=== PATIENT | male | born 1950 | race Caucasian/White ===

== ENCOUNTER 2020-07-09 17:48 | Observation (INO) ==
--- NOTE | 2020-07-09 19:37 | Emergency Department Note ---
History of Present Illness General Chief complaint: Foot Injury/Pain Stated complaint: L foot pain Time Seen by Provider: 07/09/20 19:25 Source: patient History of Present Illness Provider complaint: Leg swelling Onset (ago): week(s) Location: lower extremity, left and right Severity: moderate Pain Consistency: + constant Quality: + other (Swelling left greater than right) Relieved By: + none Associated symptoms: + other (Bruising to the left foot); no chest pain, no cough, no fever/chills, no nausea/vomiting and no shortness of breath This is a 70-year-old male who presents with bilateral lower extremity swelling, greater on the left than the right. He states he noticed that about a week ago. He also noticed some bruising to the left heel. He denies any injury. 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 He denies any discomfort to his legs. He is active daily and states that he has had no recent immobilization. He denies chest pain, shortness of breath, fever, vomiting, cough or cold symptoms, abdominal pain, diarrhea or urinary symptoms. He states that he has not been to see a doctor for years and so has no medications or known medical problems. Home Medications Medication Instructions Recorded Confirmed Type multivitamin [Multiple Vitamins] 1 tab PO DAILY 07/09/20 07/09/20 History Allergies Allergy/AdvReac Type Severity Reaction Status Date / Time Sulfa (Sulfonamide Allergy Mild Rash Verified 07/09/20 22:27 Antibiotics) morphine AdvReac Intermediate crazy Verified 07/09/20 22:26 Past Med/Surg History Medical History No pertinent past medical history Social History Smoking Status: Never smoker Feels Safe at Home: Yes Review of Systems See HPI for pertinent positives & negatives. and A total of 10 systems reviewed and were otherwise negative Physical Exam Vital Signs Vital Signs - 24 hr 07/09/20 18:23 07/09/20 19:41 07/09/20 21:04 Temperature 37.0 C Temperature Source Oral Pulse Rate 98 H Pulse Rate [Finger] 101 H 114 H Pulse Rate from SpO2 Sensor Respiratory Rate 18 14 16 Respiratory Effort / Characteristics Non-Labored Spontaneous Non-Labored Spontaneous Respiratory Depth Normal Normal Respiratory Pattern Regular Regular Blood Pressure 191/93 H Blood Pressure [Right Arm] 180/100 H 183/114 H Blood Pressure Mean 125 Blood Pressure Mean [Right Arm] 126 137 Blood Pressure Position Sitting Pulse Oximetry 98 98 95 Oxygen Delivery Method Room Air Room Air Room Air Sepsis Recent Fever Within 48 Hours No Sepsis New/Unexplained Change in Mental Status No Sepsis Action Taken by Nursing No Action Required 07/09/20 21:30 07/09/20 22:00 07/09/20 22:01 Temperature Temperature Source Pulse Rate 92 H 95 H 94 H Pulse Rate [Finger] Pulse Rate from SpO2 Sensor 92 H 95 H 94 H Respiratory Rate 18 19 21 Respiratory Effort / Characteristics Respiratory Depth Respiratory Pattern Blood Pressure 169/88 H 177/104 H Blood Pressure [Right Arm] Blood Pressure Mean 132 138 Blood Pressure Mean [Right Arm] Blood Pressure Position Pulse Oximetry 95 97 97 Oxygen Delivery Method Room Air Room Air Sepsis Recent Fever Within 48 Hours Sepsis New/Unexplained Change in Mental Status Sepsis Action Taken by Nursing 07/09/20 23:06 07/09/20 23:28 07/09/20 23:30 Temperature Temperature Source Pulse Rate 80 Pulse Rate [Finger] 90 Pulse Rate from SpO2 Sensor 82 Respiratory Rate 17 16 Respiratory Effort / Characteristics Respiratory Depth Respiratory Pattern Blood Pressure 143/89 H Blood Pressure [Right Arm] 167/98 H Blood Pressure Mean 100 Blood Pressure Mean [Right Arm] 121 Blood Pressure Position Pulse Oximetry 98 97 Oxygen Delivery Method Room Air Room Air Room Air Sepsis Recent Fever Within 48 Hours Sepsis New/Unexplained Change in Mental Status Sepsis Action Taken by Nursing Constitutional: Vital signs reviewed. Eyes: Pupils are equal round reactive to light. Conjunctiva are noninjected. ENT: Pharynx is clear without erythema or exudate. Mucous membranes are moist. Neck supple without meningeal signs. Respiratory: Clear to auscultation bilaterally. Breath sounds are equal bilaterally. No rales. Cardiovascular: Regular rate and rhythm. No rubs or gallops. GI: Soft, nondistended and nontender. Bowel sounds are present. Musculoskeletal: Bilateral lower extremity edema greater on the left side with pitting on the left side. There is what appears to be ecchymosis to the posterior left foot over the heel. No tenderness to the lower extremities or joints. Integumentary: No cyanosis. or jaundice. Neurological: The patient is awake and alert. No focal deficits. Psychiatric: Normal affect. Not anxious appearing. Course Administered Medications Discontinued Medications Furosemide (Furosemide 40 Mg/4 Ml Vial) 20 mg IV NOW STA Stop: 07/09/20 22:23 Last Admin: 07/09/20 23:10 Dose: 20 mg Documented by: [id number] Labetalol HCl (Labetalol Hcl Iv 5 Mg/Ml 20ml) 10 mg IV NOW STA Stop: 07/09/20 21:15 Last Admin: 07/09/20 21:32 Dose: 10 mg Documented by: [id number] Cosigned by: [id number] Medical Decision Making Differential Diagnosis Peripheral edema, anasarca, renal disease, DVT, CHF Medical Records Attestation: I reviewed the patient's medical records. I did perform a limited focused review of portions of the patient's old chart on the electronic medical record. The patient has had no recent pertinent visits to this hospital. Home Medications Current Medication List: was personally reviewed by me Laboratory Data Attestation: I reviewed the patient's lab results. Result diagrams: 07/09/20 19:44 07/09/20 19:44 Lab Results 07/09/20 07/09/20 07/09/20 Range/Units 19:44 19:44 19:44 WBC 6.95 (4.8-10.8) K/uL RBC 3.52 L (4.7-6.1) M/uL Hgb 13.5 L (14.0-18.0) g/dL Hct 36.6 L (42-52) % MCV 104.0 H (80-100) fL MCH 38.4 H (25-34) pg MCHC 36.9 H (32-36) g/dL RDW Std Deviation 52.6 H (36.4-46.3) fL RDW Coeff of Juanjose 13.8 (11.5-14.5) % Plt Count 87 L (130-400) K/uL MPV 10.8 H (7.4-10.4) fL Immature Gran % (Auto) 0.0 % Neut % (Auto) 54.6 % Lymph % (Auto) 31.8 % [place] % (Auto) 10.6 % Eos % (Auto) 2.4 % Baso % (Auto) 0.6 % Neut # (Auto) 3.79 (1.4-6.5) K/uL Lymph # (Auto) 2.21 (1.2-3.4) K/uL [place] # (Auto) 0.74 H (0.11-0.59) K/uL Eos # (Auto) 0.17 (0-0.5) K/uL Baso # (Auto) 0.04 (0-0.2) K/uL Immature Gran # (Auto) 0.00 (0.00-0.02) K/uL Platelet Estimate Decreased L (Normal) PT 14.6 H (9.0-12.0) Seconds INR 1.4 H (0.9-1.1) APTT 32.8 H (21.0-31.0) Seconds PTT Ratio 1.2 Sodium 136 (136-145) mmol/L Potassium 3.8 (3.5-5.1) mmol/L Chloride 104 (98-107) mmol/L Carbon Dioxide 28 (21-32) mmol/L Anion Gap 4.0 (3-11) BUN 9 (7-18) mg/dl Creatinine 0.91 (0.6-1.4) mg/dl Est Cr Clr Drug Dosing Not Reportable Est GFR ( Amer) 98.6 Est GFR (Non-Af Amer) 85.1 BUN/Creatinine Ratio 10.1 (10-20) Glucose 129 H (70-99) mg/dl Calcium 8.9 (8.5-10.1) mg/dl Magnesium 1.9 (1.8-2.4) mg/dl Total Bilirubin 2.9 H (0.2-1) mg/dl AST 98 H (15-37) U/L ALT 79 H (12-78) U/L Alkaline Phosphatase 197 H (45-117) U/L Troponin I < 0.015 (0-0.045) ng/ml Total Protein 8.6 H (6.4-8.2) gm/dl Albumin 3.3 L (3.4-5.0) gm/dl Globulin 5.3 H (2.5-4.0) gm/dl Albumin/Globulin Ratio 0.6 L (0.9-2) TSH 1.280 (0.300-4.500) uIu/ml Anaplasma Smear See Comment Lyme Disease IgG Ab (Negative) Lyme Disease IgM Ab (Negative) SARS-CoV-2 Ag (Rapid) (Negative) 07/09/20 07/09/20 Range/Units 21:49 21:51 WBC (4.8-10.8) K/uL RBC (4.7-6.1) M/uL Hgb (14.0-18.0) g/dL Hct (42-52) % MCV (80-100) fL MCH (25-34) pg MCHC (32-36) g/dL RDW Std Deviation (36.4-46.3) fL RDW Coeff of Juanjose (11.5-14.5) % Plt Count (130-400) K/uL MPV (7.4-10.4) fL Immature Gran % (Auto) % Neut % (Auto) % Lymph % (Auto) % [place] % (Auto) % Eos % (Auto) % Baso % (Auto) % Neut # (Auto) (1.4-6.5) K/uL Lymph # (Auto) (1.2-3.4) K/uL [place] # (Auto) (0.11-0.59) K/uL Eos # (Auto) (0-0.5) K/uL Baso # (Auto) (0-0.2) K/uL Immature Gran # (Auto) (0.00-0.02) K/uL Platelet Estimate (Normal) PT (9.0-12.0) Seconds INR (0.9-1.1) APTT (21.0-31.0) Seconds PTT Ratio Sodium (136-145) mmol/L Potassium (3.5-5.1) mmol/L Chloride (98-107) mmol/L Carbon Dioxide (21-32) mmol/L Anion Gap (3-11) BUN (7-18) mg/dl Creatinine (0.6-1.4) mg/dl Est Cr Clr Drug Dosing Est GFR ( Amer) Est GFR (Non-Af Amer) BUN/Creatinine Ratio (10-20) Glucose (70-99) mg/dl Calcium (8.5-10.1) mg/dl Magnesium (1.8-2.4) mg/dl Total Bilirubin (0.2-1) mg/dl AST (15-37) U/L ALT (12-78) U/L Alkaline Phosphatase (45-117) U/L Troponin I (0-0.045) ng/ml Total Protein (6.4-8.2) gm/dl Albumin (3.4-5.0) gm/dl Globulin (2.5-4.0) gm/dl Albumin/Globulin Ratio (0.9-2) TSH (0.300-4.500) uIu/ml Anaplasma Smear Lyme Disease IgG Ab Positive A (Negative) Lyme Disease IgM Ab Negative (Negative) SARS-CoV-2 Ag (Rapid) Negative (Negative) Imaging Data Radiologist's Impression: XR chest 2V PA/lateral CLINICAL HISTORY: Lower extremity edema. Evaluate for congestive failure COMPARISON STUDY: No previous studies for comparison. FINDINGS: The heart is normal in size. There is no failure. There is no focal pulmonary consolidation. There are no pleural effusions. Degenerative changes are present within the spine.[ IMPRESSION: No active disease in the chest. ACT 112: Negative or not required by law. Electronically signed by: Karel Kay M.D. 07/09/2020 8:52 PM Dictated: 07/09/202051 Transcribed: 07/09/202051 US venous doppler LE BI CLINICAL HISTORY: Bilateral leg swelling COMPARISON STUDY: No previous studies for comparison. FINDINGS: Real-time and color flow Doppler imaging were performed. Flow was seen within the femoral, popliteal and calf veins with no intraluminal thrombus demonstrated. The saphenous vein is patent. IMPRESSION: No evidence of lower extremity DVT. ACT 112: Negative or not required by law. Electronically signed by: Karel Kay M.D. 07/09/2020 8:34 PM Dictated: 07/09/202033 Transcribed: 07/09/202033 ECG Data Attestation: I personally reviewed and interpreted this ECG as follows: Indication: + other (Hypertension) Rate (beats per minute): 101 Rhythm: + sinus tachycardia ECG ST segments: + T-wave inversions ECG Findings: + LVH; no PVCs MDM Narrative I did evaluate the patient as noted above. He is presenting or peripheral edema with pitting edema in the left leg. He has no pain to the legs. He denies any prior medical problems but has significant hypertension here. IV access was established. I did place an order for continuous cardiac monitoring. The monitor showed Normal sinus rhythm at a rate of 98 bpm. I did order and personally review the patient's 12-lead EKG as described above.He has tachycardia with some T wave inversions and LVH. No old EKGs available for c omparison. I did order and personally reviewed the images of the patient's chest x-ray as described above. There is no evidence of acute process or cardiomegaly.I did order and review the patient's blood work as noted in the electronic medical record.The patient has thrombocytopenia and anemia. El ectrolytes are unremarkable. LFTs are abnormal. I did orderA Doppler ultrasound of the lower extremities. I did review the images myself as well as the radiology report as described above.There is no evidence of DVT in either leg.I did discuss the test results with the patient.I did discuss the test results with the patient.I did recommend hospitalization for further care and evaluation. He will require an echocardiogram and further testing. I did ask him about alcohol use and he states he drinks very rarely. He also denies any tick bites. He does have a dog. He has no symptoms consistent with Lyme disease. This was positive for IgG but negative for IgM. Anaplasmosis Smear was negati ve. I did send out a reference lab anaplasmosis test which is pending. I did treat the patient with labetalol for his uncontrolled hypertension. His heart rate and blood pressure improved. His BP is 143/89 and heart rate is 80. He was agreeable to hospitalization. I did discuss case with the hospitalist and tactical air control party manager. Impression & Plan Edema, peripheral, Thrombocytopenia, Anemia, Abnormal LFTs, Abnormal ECG Discharge Plan Visit Data Chief Complaint: Foot Injury/Pain Stated Complaint: L foot pain ED Provider: [place] [facility] Discharge Problem: Edema, peripheral, Thrombocytopenia, Anemia, Abnormal LFTs, Abnormal ECG Patient Disposition: Being Evaluated by Hospitalist Discharge Instructions Interventions: ED Discharge Assessment Last Done: 07/09/20 23:28 Forms Stand Alone Forms: My Individual Digital Prescriptions Prescriptions: No Action multivitamin [Multiple Vitamins] Tablet 1 tab PO DAILY RF: 0 Referrals Referrals: PCP,NO [Primary Care Provider] -
[2020-07-09 20:18] LABS: INR 1.4 (0.9-1.1); Partial Thromboplastin Ratio 1.2; Partial Thromboplastin Time 32.8 Seconds (21.0-31.0); Prothrombin Time 14.6 Seconds (9.0-12.0)
[2020-07-09 20:19] LABS: Alanine Aminotransferase 79 U/L (12-78); Albumin Level 3.3 gm/dl (3.4-5.0); Aspartate Aminotransferase 98 U/L (15-37); BUN Creatinine Ratio 10.1 (10-20); Blood Urea Nitrogen 9 mg/dl (7-18); Calcium 8.9 mg/dl (8.5-10.1); Carbon Dioxide 28 mmol/L (21-32); Chloride 104 mmol/L (98-107); Est GFR (African American) 98.6; Est GFR (Non-African American) 85.1; Glucose 129 mg/dl (70-99); Potassium 3.8 mmol/L (3.5-5.1); Sodium 136 mmol/L (136-145)
[2020-07-09 20:23] LABS: Albumin Globulin Ratio 0.6 (0.9-2); Alkaline Phosphatase 197 U/L (45-117); Basophils # (auto) 0.04 K/uL (0-0.2); Basophils % (auto) 0.6 %; Bilirubin,Total 2.9 mg/dl (0.2-1); Eosinophils # (auto) 0.17 K/uL (0-0.5); Eosinophils % (auto) 2.4 %; Globulin 5.3 gm/dl (2.5-4.0); Hematocrit (blood only) 36.6 % (42-52); Hemoglobin 13.5 g/dL (14.0-18.0); Lymphocytes # (auto) 2.21 K/uL (1.2-3.4); Lymphocytes % (auto) 31.8 %; Mean Corpuscular Hemoglobin 38.4 pg (25-34); Mean Corpuscular Hgb Conc 36.9 g/dL (32-36); Mean Platelet Volume 10.8 fL (7.4-10.4); Monocytes # (auto) 0.74 K/uL (0.11-0.59); Monocytes % (auto) 10.6 %; Neutrophils # (auto) 3.79 K/uL (1.4-6.5); Neutrophils % (auto) 54.6 %; Platelet Count 87 K/uL (130-400); Platelet Estimate Decreased (Normal); RDW Coefficient of Variation 13.8 % (11.5-14.5); RDW Standard Deviation 52.6 fL (36.4-46.3); Red Blood Count 3.52 M/uL (4.7-6.1); Total Protein 8.6 gm/dl (6.4-8.2); Troponin I < 0.015 ng/ml (0-0.045); White Blood Count 6.95 K/uL (4.8-10.8)
--- NOTE | 2020-07-09 20:35 | Ultrasound Report ---
US venous doppler LE BI CLINICAL HISTORY: Bilateral leg swelling COMPARISON STUDY: No previous studies for comparison. FINDINGS: Real-time and color flow Doppler imaging were performed. Flow was seen within the femoral, popliteal and calf veins with no intraluminal thrombus demonstrated. The saphenous vein is patent. IMPRESSION: No evidence of lower extremity DVT. ACT 112: Negative or not required by law. Electronically signed by: Karel Kay M.D. 07/09/2020 8:34 PM
--- NOTE | 2020-07-09 20:54 | XRay Report ---
XR chest 2V PA/lateral CLINICAL HISTORY: Lower extremity edema. Evaluate for congestive failure COMPARISON STUDY: No previous studies for comparison. FINDINGS: The heart is normal in size. There is no failure. There is no focal pulmonary consolidation . There are no pleural effusions. Degenerative changes are present within the spine.[ IMPRESSION: No active disease in the chest. ACT 112: Negative or not required by law. Electronically signed by: Karel Kay M.D. 07/09/2020 8:52 PM
[2020-07-09] MEDS ORDERED: LABETALOL HCL IV 5 MG/ML 20ML IV STA (21:14)
--- NOTE | 2020-07-09 22:20 | History & Physical Report ---
Date of Service July 09, 2020 Assessment & Plan (1) Edema, peripheral: Secondary to new diagnosis of cirrhosis Etiology to be determined Thrombocytopenia, coagulopathy secondary to liver disease Hypertensive urgency Likely chronic BP elevation given LVH on EKG Hyperglycemia rule out DM Anemia, unknown duration OBS Medical telemetry given hypertensive urgency Lasix 1 dose now given fluid retention from cirrhosis Initiate lisinopril for maintenance BP control GI consult Re: New onset cirrhosis Check hemoglobin A1c Anemia work-up, transfuse PRBC if hemoglobin less than 7 and or for symptomatic anemia DVT prophylaxis. SCDs RE thrombocytopenia Full code Text document was generated using [employer] voice recognition software. It may contain grammatical or spelling errors. Kindly contact undersigned for clarification of any documentation item in question. History of Present Illness Chief Complaint: Leg swelling, bruising Primary Care Provider: NO PCP No significant medical history. Patient has not had a primary care doctor in the last 20 years. 1 week history of bruising on the left foot followed by leg swelling initially left followed by the right leg. No recollection of recent trauma although he is very active with household/yard work. No fever, no chills. No chest pain, no S OB. No headache. No unusual abdominal pain or distention as per patient. No inordinate alcohol or Tylenol intake. At the ER, SBP 190s. Patient given Labetalol. Medical History as above History tick bite infection status post outpatient Doxycycline Rx 2015 Surgical History : Appendectomy Family History : No liver disease Personal/Social history : Non-smoker, occasional EtOH intake, psychiatric nurse Allergies Allergy/AdvReac Type Severity Reaction Status Date / Time Sulfa (Sulfonamide Allergy Mild Rash Verified 07/09/20 22:27 Antibiotics) morphine AdvReac Intermediate crazy Verified 07/09/20 22:26 Home Medications Medication Instructions Recorded Confirmed Type multivitamin [Multiple Vitamins] 1 tab PO DAILY 07/09/20 07/09/20 History Past Med/Surg History Medical History No pertinent past medical history Social History Smoking Status: Never smoker Second Hand Exposure: Yes ( is a smoker); Hx Alcohol Use: Yes Alcohol type: beer, wine and hard liquor Hx Substance Use: No Preferred Language: Guatemalan Communication Ability: Effective Medical Microbiologist Required: No Beliefs That Will Affect Care: None Current Living Situation: Spouse Other Information That Helps Us Care for You: No Feels Safe at Home: Yes Safety Concerns: Feels Safe At This Time Assistive Devices: None Review of Systems Review of Systems: As per HPI, all 10 systems reviewed, all other ROS negative Physical Exam Physical Exam: GENERAL: Comfortable, pleasant, no respiratory distress SKIN: Pallor, warm HEENT: Alopecia, bespectacled, pale palpebral conjunctivae, no ptosis, dry buc isidra mucosa NECK : Supple, no tenderness CHEST : CTA, no tenderness HEART : RRR, no obvious murmurs ABDOMEN: Some distention, nontender EXTREMITIES : LE swelling L>R , no LE tenderness, ecchymosis left foot, no other conspicuous deformities noted NEUROLOGIC : Coherent, no facial asymmetry, no other gross focality Results & Data Results & Data ([facility]) Vital Signs (Past 12 Hours) Vital Signs Temp Pulse Pulse Resp BP BP Pulse Ox 07/09/20 22:00 95 H 19 177/104 H 97 07/09/20 21:30 92 H 18 169/88 H 95 07/09/20 21:04 114 H 16 183/114 H 95 07/09/20 19:41 101 H 14 180/100 H 98 07/09/20 18:23 37.0 C 98 H 18 191/93 H 98 Laboratory Results Laboratory Results WBC 6.95 K/uL (4.8-10.8) 07/09/20 19:44 RBC 3.52 M/uL (4.7-6.1) L 07/09/20 19:44 Hgb 13.5 g/dL (14.0-18.0) L 07/09/20 19:44 Hct 36.6 % (42-52) L 07/09/20 19:44 MCV 104.0 fL (80-100) H 07/09/20 19:44 MCH 38.4 pg (25-34) H 07/09/20 19:44 MCHC 36.9 g/dL (32-36) H 07/09/20 19:44 RDW Std Deviation 52.6 fL (36.4-46.3) H 07/09/20 19:44 RDW Coeff of Juanjose 13.8 % (11.5-14.5) 07/09/20 19:44 Plt Count 87 K/uL (130-400) L 07/09/20 19:44 MPV 10.8 fL (7.4-10.4) H 07/09/20 19:44 Immature Gran % (Auto) 0.0 % 07/09/20 19:44 Neut % (Auto) 54.6 % 07/09/20 19:44 Lymph % (Auto) 31.8 % 07/09/20 19:44 [place] % (Auto) 10.6 % 07/09/20 19:44 Eos % (Auto) 2.4 % 07/09/20 19:44 Baso % (Auto) 0.6 % 07/09/20 19:44 Neut # (Auto) 3.79 K/uL (1.4-6.5) 07/09/20 19:44 Lymph # (Auto) 2.21 K/uL (1.2-3.4) 07/09/20 19:44 [place] # (Auto) 0.74 K/uL (0.11-0.59) H 07/09/20 19:44 Eos # (Auto) 0.17 K/uL (0-0.5) 07/09/20 19:44 Baso # (Auto) 0.04 K/uL (0-0.2) 07/09/20 19:44 Immature Gran # (Auto) 0.00 K/uL (0.00-0.02) 07/09/20 19:44 Platelet Estimate Decreased (Normal) L 07/09/20 19:44 PT 14.6 Seconds (9.0-12.0) H 07/09/20 19:44 INR 1.4 (0.9-1.1) H 07/09/20 19:44 APTT 32.8 Seconds (21.0-31.0) H 07/09/20 19:44 PTT Ratio 1.2 07/09/20 19:44 Sodium 136 mmol/L (136-145) 07/09/20 19:44 Potassium 3.8 mmol/L (3.5-5.1) 07/09/20 19:44 Chloride 104 mmol/L (98-107) 07/09/20 19:44 Carbon Dioxide 28 mmol/L (21-32) 07/09/20 19:44 Anion Gap 4.0 (3-11) 07/09/20 19:44 BUN 9 mg/dl (7-18) 07/09/20 19:44 Creatinine 0.91 mg/dl (0.6-1.4) 07/09/20 19:44 Est Cr Clr Drug Dosing Not Reportable 07/09/20 19:44 Est GFR ( Amer) 98.6 07/09/20 19:44 Est GFR (Non-Af Amer) 85.1 07/09/20 19:44 BUN/Creatinine Ratio 10.1 (10-20) 07/09/20 19:44 Glucose 129 mg/dl (70-99) H 07/09/20 19:44 Calcium 8.9 mg/dl (8.5-10.1) 07/09/20 19:44 Total Bilirubin 2.9 mg/dl (0.2-1) H 07/09/20 19:44 AST 98 U/L (15-37) H 07/09/20 19:44 ALT 79 U/L (12-78) H 07/09/20 19:44 Alkaline Phosphatase 197 U/L (45-117) H 07/09/20 19:44 Troponin I < 0.015 ng/ml (0-0.045) 07/09/20 19:44 Total Protein 8.6 gm/dl (6.4-8.2) H 07/09/20 19:44 Albumin 3.3 gm/dl (3.4-5.0) L 07/09/20 19:44 Globulin 5.3 gm/dl (2.5-4.0) H 07/09/20 19:44 Albumin/Globulin Ratio 0.6 (0.9-2) L 07/09/20 19:44 Anaplasma Smear See Comment 07/09/20 19:44 SARS-CoV-2 Ag (Rapid) Negative (Negative) 07/09/20 21:51 Diagnostic Findings LE venous Dopplers: No evidence of lower extremity DVT. Chest x-ray : No active disease in the chest. Ultrasound abdomen and liver initial read: Trace ascites around the liver. Coarse liver echotexture. Splenomegaly 13 cm. EKG as per my interpretation : Rate 105, sinus tachycardia, LAD, LAFB, LVH, T wave abnormalities lateral leads
[2020-07-09] MEDS ORDERED: FUROSEMIDE 40 MG/4 ML VIAL IV STA (22:22)
[2020-07-09] MEDS ORDERED: lisinopril 5 MG TAB PO ONE (22:30)
[2020-07-09 22:46] LABS: Magnesium 1.9 mg/dl (1.8-2.4)
[2020-07-09 23:04] LABS: Lyme Ab IgM w/WB Rflx Negative (Negative)
[2020-07-09 23:21] LABS: Lyme Ab IgG w/WB Rflx Positive (Negative)
[2020-07-10] MEDS ORDERED: PROMETHAZINE HCL 6.25 MG in SODIUM CHLORIDE 0.9% 50 ML IV PRN (00:13)
[2020-07-10] MEDS ORDERED: ACETAMINOPHEN 325 MG TAB PO PRN (00:13)
[2020-07-10] MEDS ORDERED: traMADol HCL 50 MG TABLET PO PRN (00:13)
[2020-07-10] MEDS: lisinopril 2.5 MG TAB PO SCH (01:57)
[2020-07-10 05:53] LABS: Hematocrit (blood only) 36.3 % (42-52); Hemoglobin 12.8 g/dL (14.0-18.0); Mean Corpuscular Hemoglobin 36.9 pg (25-34); Mean Corpuscular Hgb Conc 35.3 g/dL (32-36); Mean Corpuscular Volume 104.6 fL (80-100); RDW Coefficient of Variation 13.8 % (11.5-14.5); RDW Standard Deviation 52.2 fL (36.4-46.3); Red Blood Count 3.47 M/uL (4.7-6.1); White Blood Count 6.54 K/uL (4.8-10.8)
[2020-07-10 05:57] LABS: Basophils # (auto) 0.03 K/uL (0-0.2); Basophils % (auto) 0.5 %; Eosinophils # (auto) 0.17 K/uL (0-0.5); Eosinophils % (auto) 2.6 %; Lymphocytes # (auto) 1.71 K/uL (1.2-3.4); Lymphocytes % (auto) 26.1 %; Mean Platelet Volume 10.7 fL (7.4-10.4); Monocytes # (auto) 0.91 K/uL (0.11-0.59); Monocytes % (auto) 13.9 %; Neutrophils # (auto) 3.72 K/uL (1.4-6.5); Neutrophils % (auto) 56.9 %; Platelet Count 74 K/uL (130-400); Reticulocyte % 2.8 % (0.5-2.0)
[2020-07-10 06:07] LABS: Albumin Level 2.8 gm/dl (3.4-5.0); BUN Creatinine Ratio 11.3 (10-20); Calcium 8.6 mg/dl (8.5-10.1); Creatinine Clr Calc Pharmacy 83.9 ml/min; Est GFR (African American) 100.4; Est GFR (Non-African American) 86.6; Potassium 3.9 mmol/L (3.5-5.1)
[2020-07-10 06:11] LABS: Estimated Average Glucose 128 mg/dl; Hemoglobin A1C 6.1 % (4.5-5.6)
[2020-07-10 06:28] LABS: Albumin Globulin Ratio 0.6 (0.9-2); Bilirubin,Total 4.4 mg/dl (0.2-1); Globulin 4.5 gm/dl (2.5-4.0); Total Protein 7.3 gm/dl (6.4-8.2)
[2020-07-10 07:17] LABS: Folate (Folic Acid) 13.3 ng/ml (>5.38)
--- NOTE | 2020-07-10 07:21 | Ultrasound Report ---
US abdomen ltd ascites HISTORY: 70 years-old Male abd distension acute generalized abdominal distention with clinical tyesha rn for ascites COMPARISON: Right upper quadrant abdominal ultrasound of same day TECHNIQUE: Multiple real-time sonographic images of the abdomen were obtained assessing grayscale naren earance FINDINGS: Cirrhotic morphology of the liver. Trace perihepatic ascites without drainable pocket of fluid identi fied. Splenomegaly, 13.0 cm. IMPRESSION: Trace perihepatic ascites. ACT 112: Negative or not required by law. The above report was generated using voice recognition software. It may contain grammatical, syntax o r spelling errors. Electronically signed by: Brandon Peck M.D. 07/10/2020 7:20 AM
--- NOTE | 2020-07-10 07:41 | Electrocardiogram Report ---
Test Reason : Blood Pressure : / mmHG Vent. Rate : 101 BPM Atrial Rate : 101 BPM P-R Int : 158 ms QRS Dur : 098 ms QT Int : 358 ms P-R-T Axes : 066 -30 091 degrees QTc Int : 464 ms Sinus tachycardia Left axis deviation Left ventricular hypertrophy with repolarization abnormality Abnormal ECG No previous ECGs available Confirmed by Chris Hanson ([id number]) on 07/10/2020 7:41:33 AM Referred By: REFERRED SELF Confirmed By:Davey Hanson
--- NOTE | 2020-07-10 08:11 | Ultrasound Report ---
US liver CLINICAL HISTORY: Abnormal liver function tests COMPARISON STUDY: No previous studies for comparison. FINDINGS: The pancreas appears sonographically normal. There is diffuse heterogeneity in hepatic echo texture. This likely reflects underlying hepatic cirrhosis. A diffuse infiltrative process could appe ar similar. Clinical correlation recommended. There is trace perihepatic fluid. There is no right-sided hydronephrosis. There is cholelithiasis. There is no ductal dilatation. The common bile duct measures 5 mm. IMPRESSION: 1. Cirrhotic morphology of the liver with trace perihepatic ascites 2. Cholelithiasis 3. No ductal dilatation ACT 112: Negative or not required by law. Electronically signed by: Karel Kay M.D. 07/10/2020 8:09 AM
--- NOTE | 2020-07-10 09:04 | Gastrointestinal Consultation ---
Date of Consultation July 10, 2020 Assessment & Plan (1) Edema, peripheral: 70 year old male admitted through the ED w/ HTN urgency, fluid overload GI asked to evaluate for new findings of cirrhosis w/ nodular appearing liver on imaging, elevated LFTs, decreased plt count and elevated INR. He denies any history of ETOH use or abuse or family history of liver disease. MELD 16 Trend LFTs Acute hepatitis panel Echocardiogram Continue diuresis Liver serology: JUAN CARLOS, AMA, ASMA, TTG IGA, ceruloplasmin, alpha-1 No hepatoxins No ETOH Less than 2G of Tylenol containing products Low NA diet, less than 2G daily No NSAIDs Consider MRCP given degree of elevation of TB and gallstones on imaging but CBD looks clear on ABD US Will need OP EGD/Colonoscopy Thank you for allowing us to participate in the care of this patient. Please call with any acute changes, questions or concerns. Please see addendum below with additional recommendation from my supervising physician. Supervising Physician Co-Signing Physician Notes I have seen and examined the patient and discussed the management with PAIGE Martinez. Admitted with leg edema pain- dvt rule out, abd gladis showing cirrhosis, ascites, and non dilated cbd. LFt's elevated, tb 4.4, INR 1.4, TB 4.4, ar 85, alt 68 Abd gladis reviewed - non dilated cbd He reports no belly pain, nausea, vomiting, hematochezia, hematemesis. MELD 14 driven by inr and platelets low and with a macrocytic anemia. Etiology of cirrhosis is unclear as he denies drinking, no significant weight gain in his life, no exposures to viral hepatitis. MRCP for further evaluation of elevated lft's. Blood cultures given he is cirrhotic with an elevated bilirubin. If non dilated cbd and blood cultures normal, consider outpt hepatology follow- up. History of Present Illness Reason for Consultation: cirrhosis Requesting Physician: Zoe Attending Physician: Griselda Enriquez MD History of Present Illness 70 year old male who does not regularly follow with a primary care provider admitted through the ED w/ signs of fluid overload and HTN urgency - GI asked to evaluate for cirrhosis. Pt was seen and evaluated, chart reviewed. Notes lower extremity edema L>R x 1 week. This has persisted and worsened which prompted ED evaluation leading to this admission. Otherwise, feeling well. No abd pain. No nausea, vomiting. No GERD. No dysphagia. Good appetite. Denies weight loss. Moving bowels daily. No black or bloody stools. Rare ETOH. No tylenol. No street drugs. 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 ETOH: 1-2 drinks 1-2 times a year ABD US: cirrhosis w/ minimal ascites, cholelithiasis but no ductal dilatation, common bile duct measures 5 mm. Cirrhosis: etiology unknown Decompensations: Ascites: scant on ABD US 07/2020 has never had paracentesis Edema: new 07/2020 getting cardiac workup Varices: unknown HE: no prior history Screenings MELD: 18 Varices: overdue HCC: due in January Immunizations: status unknown EGD: none Colonoscopy: none Allergies Allergy/AdvReac Type Severity Reaction Status Date / Time Sulfa (Sulfonamide Allergy Mild Rash Verified 07/09/20 22:27 Antibiotics) morphine AdvReac Intermediate crazy Verified 07/09/20 22:26 Home Medications Medication Instructions Recorded Confirmed Type multivitamin [Multiple Vitamins] 1 tab PO DAILY 07/09/20 07/09/20 History Patient History Medical History No pertinent past medical history Social History Smoking Status: Never smoker Second Hand Exposure: Yes ( is a smoker); Hx Alcohol Use: Yes Alcohol type: beer, wine and hard liquor Hx Substance Use: No Preferred Language: Nepali Communication Ability: Effective Medical Cash Poster Required: No Beliefs That Will Affect Care: None Current Living Situation: Spouse Other Information That Helps Us Care for You: No Feels Safe at Home: Yes Safety Concerns: Feels Safe At This Time Assistive Devices: None Review of Systems Constitutional: no fever, no chills and no fatigue Respiratory: no cough and no dyspnea Cardiovascular: no chest pain and no dyspnea Gastrointestinal: no abdominal pain, no nausea, no coffee ground emesis, no hematemesis, no change in bowel habits, no diarrhea/loose stools, no blood in stools and no melena Physical Exam Constitutional: no acute distress slight jaundice Neck: trachea midline Respiratory: normal respiratory effort; no respiratory distress and no labored breathing Cardiovascular: Rate/Rhythm: regular rate and regular rhythm Extremities: + edema Gastrointestinal (Abdomen): normal bowel sounds, soft, nontender, no hepatosplenomegaly Skin: no rashes, warm and dry Results & Data ([facility]) Vital Signs (Past 12 Hours) Vital Signs Temp Pulse Pulse Pulse Resp BP BP 07/10/20 07:18 37.0 C 55 L 18 166/95 H 07/10/20 04:00 37.2 C 93 H 18 150/80 H 07/10/20 00:30 82 07/10/20 00:18 36.9 C 90 18 170/95 H 07/10/20 00:16 07/10/20 00:15 36.9 C 90 18 170/95 H 07/09/20 23:30 80 16 143/89 H 07/09/20 23:06 90 17 167/98 H 07/09/20 22:01 94 H 21 07/09/20 22:00 95 H 19 177/104 H 07/09/20 21:30 92 H 18 169/88 H 07/09/20 21:04 114 H 16 183/114 H Pulse Ox Pulse Ox 07/10/20 07:18 95 07/10/20 04:00 96 07/10/20 00:30 07/10/20 00:18 96 07/10/20 00:16 96 07/10/20 00:15 96 07/09/20 23:30 97 07/09/20 23:06 98 07/09/20 22:01 97 07/09/20 22:00 97 07/09/20 21:30 95 07/09/20 21:04 95 Laboratory Results 07/10/20 07/10/20 07/10/20 Range/Units 05:24 05:24 05:24 WBC (4.8-10.8) K/uL RBC (4.7-6.1) M/uL Hgb (14.0-18.0) g/dL Hct (42-52) % MCV (80-100) fL MCH (25-34) pg MCHC (32-36) g/dL RDW Std Deviation (36.4-46.3) fL RDW Coeff of Juanjose (11.5-14.5) % Plt Count (130-400) K/uL MPV (7.4-10.4) fL Immature Gran % (Auto) % Neut % (Auto) % Lymph % (Auto) % [place] % (Auto) % Eos % (Auto) % Baso % (Auto) % Reticulocyte % (Auto) (0.5-2.0) % Neut # (Auto) (1.4-6.5) K/uL Lymph # (Auto) (1.2-3.4) K/uL [place] # (Auto) (0.11-0.59) K/uL Eos # (Auto) (0-0.5) K/uL Baso # (Auto) (0-0.2) K/uL Reticulocyte # (0.02-0.10) 10^6/uL Immature Gran # (Auto) (0.00-0.02) K/uL Platelet Estimate (Normal) PT (9.0-12.0) Seconds INR (0.9-1.1) APTT (21.0-31.0) Seconds PTT Ratio Sodium (136-145) mmol/L Potassium (3.5-5.1) mmol/L Chloride (98-107) mmol/L Carbon Dioxide (21-32) mmol/L Anion Gap (3-11) BUN (7-18) mg/dl Creatinine (0.6-1.4) mg/dl Est Cr Clr Drug Dosing Est GFR ( Amer) Est GFR (Non-Af Amer) BUN/Creatinine Ratio (10-20) Glucose (70-99) mg/dl Estimat Average Glucose mg/dl Hemoglobin A1c (4.5-5.6) % Calcium (8.5-10.1) mg/dl Magnesium (1.8-2.4) mg/dl Iron (35-175) mcg/dl TIBC (250-450) mcg/dl Transferrin (200-360) mg/dl Ferritin (8-388) ng/ml Total Bilirubin (0.2-1) mg/dl AST (15-37) U/L ALT (12-78) U/L Alkaline Phosphatase (45-117) U/L Troponin I (0-0.045) ng/ml Total Protein (6.4-8.2) gm/dl Albumin (3.4-5.0) gm/dl Globulin (2.5-4.0) gm/dl Albumin/Globulin Ratio (0.9-2) Vitamin B12 1632 H (193-986) pg/ml Folate 13.30 (>5.38) ng/ml TSH (0.300-4.500) uIu/ml Anaplasma Smear A. phagocytophilum DNA Lyme Disease IgG Ab (Negative) Lyme IgG (Western Blot) Lyme IgG 18 kDa Band Lyme IgG 23 kDa Band Lyme IgG 28 kDa Band Lyme IgG 30 kDa Band Lyme IgG 39 kDa Band Lyme IgG 41 kDa Band Lyme IgG 45 kDa Band Lyme IgG 58 kDa Band Lyme IgG 66 kDa Band Lyme IgG 93 kDa Band Lyme IgM Ab (WB) Lyme Disease IgM Ab (Negative) Lyme IgM 23 kDa Band Lyme IgM 39 kDa Band Lyme IgM 41 kDa Band Hepatitis A IgM Ab Pending Hep Bs Antigen Pending Hep B Core IgM Ab Pending Hepatitis C Antibody Pending SARS-CoV-2 Ag (Rapid) (Negative) Blood Type Antibody Screen 07/10/20 07/10/20 07/10/20 Range/Units 05:24 05:24 05:24 WBC 6.54 (4.8-10.8) K/uL RBC 3.47 L (4.7-6.1) M/uL Hgb 12.8 L (14.0-18.0) g/dL Hct 36.3 L (42-52) % MCV 104.6 H (80-100) fL MCH 36.9 H (25-34) pg MCHC 35.3 (32-36) g/dL RDW Std Deviation 52.2 H (36.4-46.3) fL RDW Coeff of Juanjose 13.8 (11.5-14.5) % Plt Count 74 L (130-400) K/uL MPV 10.7 H (7.4-10.4) fL Immature Gran % (Auto) 0.0 % Neut % (Auto) 56.9 % Lymph % (Auto) 26.1 % [place] % (Auto) 13.9 % Eos % (Auto) 2.6 % Baso % (Auto) 0.5 % Reticulocyte % (Auto) 2.8 H (0.5-2.0) % Neut # (Auto) 3.72 (1.4-6.5) K/uL Lymph # (Auto) 1.71 (1.2-3.4) K/uL [place] # (Auto) 0.91 H (0.11-0.59) K/uL Eos # (Auto) 0.17 (0-0.5) K/uL Baso # (Auto) 0.03 (0-0.2) K/uL Reticulocyte # 0.10 (0.02-0.10) 10^6/uL Immature Gran # (Auto) 0.00 (0.00-0.02) K/uL Platelet Estimate (Normal) PT (9.0-12.0) Seconds INR (0.9-1.1) APTT (21.0-31.0) Seconds PTT Ratio Sodium 138 (136-145) mmol/L Potassium 3.9 (3.5-5.1) mmol/L Chloride 106 (98-107) mmol/L Carbon Dioxide 25 (21-32) mmol/L Anion Gap 7.0 (3-11) BUN 10 (7-18) mg/dl Creatinine 0.89 (0.6-1.4) mg/dl Est Cr Clr Drug Dosing 83.9 Est GFR ( Amer) 100.4 Est GFR (Non-Af Amer) 86.6 BUN/Creatinine Ratio 11.3 (10-20) Glucose 136 H (70-99) mg/dl Estimat Average Glucose mg/dl Hemoglobin A1c (4.5-5.6) % Calcium 8.6 (8.5-10.1) mg/dl Magnesium (1.8-2.4) mg/dl Iron 188 H (35-175) mcg/dl TIBC 226 L (250-450) mcg/dl Transferrin 149 L (200-360) mg/dl Ferritin 860.0 H (8-388) ng/ml Total Bilirubin 4.4 H D (0.2-1) mg/dl AST 85 H (15-37) U/L ALT 68 (12-78) U/L Alkaline Phosphatase 143 H (45-117) U/L Troponin I (0-0.045) ng/ml Total Protein 7.3 (6.4-8.2) gm/dl Albumin 2.8 L (3.4-5.0) gm/dl Globulin 4.5 H (2.5-4.0) gm/dl Albumin/Globulin Ratio 0.6 L (0.9-2) Vitamin B12 (193-986) pg/ml Folate (>5.38) ng/ml TSH (0.300-4.500) uIu/ml Anaplasma Smear A. phagocytophilum DNA Lyme Disease IgG Ab (Negative) Lyme IgG (Western Blot) Lyme IgG 18 kDa Band Lyme IgG 23 kDa Band Lyme IgG 28 kDa Band Lyme IgG 30 kDa Band Lyme IgG 39 kDa Band Lyme IgG 41 kDa Band Lyme IgG 45 kDa Band Lyme IgG 58 kDa Band Lyme IgG 66 kDa Band Lyme IgG 93 kDa Band Lyme IgM Ab (WB) Lyme Disease IgM Ab (Negative) Lyme IgM 23 kDa Band Lyme IgM 39 kDa Band Lyme IgM 41 kDa Band Hepatitis A IgM Ab Hep Bs Antigen Hep B Core IgM Ab Hepatitis C Antibody SARS-CoV-2 Ag (Rapid) (Negative) Blood Type A Positive Antibody Screen NEGATIVE 07/09/20 07/09/20 07/09/20 Range/Units 21:51 21:50 21:49 WBC (4.8-10.8) K/uL RBC (4.7-6.1) M/uL Hgb (14.0-18.0) g/dL Hct (42-52) % MCV (80-100) fL MCH (25-34) pg MCHC (32-36) g/dL RDW Std Deviation (36.4-46.3) fL RDW Coeff of Juanjose (11.5-14.5) % Plt Count (130-400) K/uL MPV (7.4-10.4) fL Immature Gran % (Auto) % Neut % (Auto) % Lymph % (Auto) % [place] % (Auto) % Eos % (Auto) % Baso % (Auto) % Reticulocyte % (Auto) (0.5-2.0) % Neut # (Auto) (1.4-6.5) K/uL Lymph # (Auto) (1.2-3.4) K/uL [place] # (Auto) (0.11-0.59) K/uL Eos # (Auto) (0-0.5) K/uL Baso # (Auto) (0-0.2) K/uL Reticulocyte # (0.02-0.10) 10^6/uL Immature Gran # (Auto) (0.00-0.02) K/uL Platelet Estimate (Normal) PT (9.0-12.0) Seconds INR (0.9-1.1) APTT (21.0-31.0) Seconds PTT Ratio Sodium (136-145) mmol/L Potassium (3.5-5.1) mmol/L Chloride (98-107) mmol/L Carbon Dioxide (21-32) mmol/L Anion Gap (3-11) BUN (7-18) mg/dl Creatinine (0.6-1.4) mg/dl Est Cr Clr Drug Dosing Est GFR ( Amer) Est GFR (Non-Af Amer) BUN/Creatinine Ratio (10-20) Glucose (70-99) mg/dl Estimat Average Glucose 128 mg/dl Hemoglobin A1c 6.1 H (4.5-5.6) % Calcium (8.5-10.1) mg/dl Magnesium (1.8-2.4) mg/dl Iron (35-175) mcg/dl TIBC (250-450) mcg/dl Transferrin (200-360) mg/dl Ferritin (8-388) ng/ml Total Bilirubin (0.2-1) mg/dl AST (15-37) U/L ALT (12-78) U/L Alkaline Phosphatase (45-117) U/L Troponin I (0-0.045) ng/ml Total Protein (6.4-8.2) gm/dl Albumin (3.4-5.0) gm/dl Globulin (2.5-4.0) gm/dl Albumin/Globulin Ratio (0.9-2) Vitamin B12 (193-986) pg/ml Folate (>5.38) ng/ml TSH (0.300-4.500) uIu/ml Anaplasma Smear A. phagocytophilum DNA Lyme Disease IgG Ab (Negative) Lyme IgG (Western Blot) Pending Lyme IgG 18 kDa Band Pending Lyme IgG 23 kDa Band Pending Lyme IgG 28 kDa Band Pending Lyme IgG 30 kDa Band Pending Lyme IgG 39 kDa Band Pending Lyme IgG 41 kDa Band Pending Lyme IgG 45 kDa Band Pending Lyme IgG 58 kDa Band Pending Lyme IgG 66 kDa Band Pending Lyme IgG 93 kDa Band Pending Lyme IgM Ab (WB) Pending Lyme Disease IgM Ab (Negative) Lyme IgM 23 kDa Band Pending Lyme IgM 39 kDa Band Pending Lyme IgM 41 kDa Band Pending Hepatitis A IgM Ab Hep Bs Antigen Hep B Core IgM Ab Hepatitis C Antibody SARS-CoV-2 Ag (Rapid) Negative (Negative) Blood Type Antibody Screen 07/09/20 07/09/20 07/09/20 Range/Units 21:49 19:44 19:44 WBC (4.8-10.8) K/uL RBC (4.7-6.1) M/uL Hgb (14.0-18.0) g/dL Hct (42-52) % MCV (80-100) fL MCH (25-34) pg MCHC (32-36) g/dL RDW Std Deviation (36.4-46.3) fL RDW Coeff of Juanjose (11.5-14.5) % Plt Count (130-400) K/uL MPV (7.4-10.4) fL Immature Gran % (Auto) % Neut % (Auto) % Lymph % (Auto) % [place] % (Auto) % Eos % (Auto) % Baso % (Auto) % Reticulocyte % (Auto) (0.5-2.0) % Neut # (Auto) (1.4-6.5) K/uL Lymph # (Auto) (1.2-3.4) K/uL [place] # (Auto) (0.11-0.59) K/uL Eos # (Auto) (0-0.5) K/uL Baso # (Auto) (0-0.2) K/uL Reticulocyte # (0.02-0.10) 10^6/uL Immature Gran # (Auto) (0.00-0.02) K/uL Platelet Estimate (Normal) PT 14.6 H (9.0-12.0) Seconds INR 1.4 H (0.9-1.1) APTT 32.8 H (21.0-31.0) Seconds PTT Ratio 1.2 Sodium (136-145) mmol/L Potassium (3.5-5.1) mmol/L Chloride (98-107) mmol/L Carbon Dioxide (21-32) mmol/L Anion Gap (3-11) BUN (7-18) mg/dl Creatinine (0.6-1.4) mg/dl Est Cr Clr Drug Dosing Est GFR ( Amer) Est GFR (Non-Af Amer) BUN/Creatinine Ratio (10-20) Glucose (70-99) mg/dl Estimat Average Glucose mg/dl Hemoglobin A1c (4.5-5.6) % Calcium (8.5-10.1) mg/dl Magnesium (1.8-2.4) mg/dl Iron (35-175) mcg/dl TIBC (250-450) mcg/dl Transferrin (200-360) mg/dl Ferritin (8-388) ng/ml Total Bilirubin (0.2-1) mg/dl AST (15-37) U/L ALT (12-78) U/L Alkaline Phosphatase (45-117) U/L Troponin I (0-0.045) ng/ml Total Protein (6.4-8.2) gm/dl Albumin (3.4-5.0) gm/dl Globulin (2.5-4.0) gm/dl Albumin/Globulin Ratio (0.9-2) Vitamin B12 (193-986) pg/ml Folate (>5.38) ng/ml TSH (0.300-4.500) uIu/ml Anaplasma Smear A. phagocytophilum DNA Pending Lyme Disease IgG Ab Positive A (Negative) Lyme IgG (Western Blot) Lyme IgG 18 kDa Band Lyme IgG 23 kDa Band Lyme IgG 28 kDa Band Lyme IgG 30 kDa Band Lyme IgG 39 kDa Band Lyme IgG 41 kDa Band Lyme IgG 45 kDa Band Lyme IgG 58 kDa Band Lyme IgG 66 kDa Band Lyme IgG 93 kDa Band Lyme IgM Ab (WB) Lyme Disease IgM Ab Negative (Negative) Lyme IgM 23 kDa Band Lyme IgM 39 kDa Band Lyme IgM 41 kDa Band Hepatitis A IgM Ab Hep Bs Antigen Hep B Core IgM Ab Hepatitis C Antibody SARS-CoV-2 Ag (Rapid) (Negative) Blood Type Antibody Screen 07/09/20 07/09/20 Range/Units 19:44 19:44 WBC 6.95 (4.8-10.8) K/uL RBC 3.52 L (4.7-6.1) M/uL Hgb 13.5 L (14.0-18.0) g/dL Hct 36.6 L (42-52) % MCV 104.0 H (80-100) fL MCH 38.4 H (25-34) pg MCHC 36.9 H (32-36) g/dL RDW Std Deviation 52.6 H (36.4-46.3) fL RDW Coeff of Juanjose 13.8 (11.5-14.5) % Plt Count 87 L (130-400) K/uL MPV 10.8 H (7.4-10.4) fL Immature Gran % (Auto) 0.0 % Neut % (Auto) 54.6 % Lymph % (Auto) 31.8 % [place] % (Auto) 10.6 % Eos % (Auto) 2.4 % Baso % (Auto) 0.6 % Reticulocyte % (Auto) (0.5-2.0) % Neut # (Auto) 3.79 (1.4-6.5) K/uL Lymph # (Auto) 2.21 (1.2-3.4) K/uL [place] # (Auto) 0.74 H (0.11-0.59) K/uL Eos # (Auto) 0.17 (0-0.5) K/uL Baso # (Auto) 0.04 (0-0.2) K/uL Reticulocyte # (0.02-0.10) 10^6/uL Immature Gran # (Auto) 0.00 (0.00-0.02) K/uL Platelet Estimate Decreased L (Normal) PT (9.0-12.0) Seconds INR (0.9-1.1) APTT (21.0-31.0) Seconds PTT Ratio Sodium 136 (136-145) mmol/L Potassium 3.8 (3.5-5.1) mmol/L Chloride 104 (98-107) mmol/L Carbon Dioxide 28 (21-32) mmol/L Anion Gap 4.0 (3-11) BUN 9 (7-18) mg/dl Creatinine 0.91 (0.6-1.4) mg/dl Est Cr Clr Drug Dosing Not Reportable Est GFR ( Amer) 98.6 Est GFR (Non-Af Amer) 85.1 BUN/Creatinine Ratio 10.1 (10-20) Glucose 129 H (70-99) mg/dl Estimat Average Glucose mg/dl Hemoglobin A1c (4.5-5.6) % Calcium 8.9 (8.5-10.1) mg/dl Magnesium 1.9 (1.8-2.4) mg/dl Iron (35-175) mcg/dl TIBC (250-450) mcg/dl Transferrin (200-360) mg/dl Ferritin (8-388) ng/ml Total Bilirubin 2.9 H (0.2-1) mg/dl AST 98 H (15-37) U/L ALT 79 H (12-78) U/L Alkaline Phosphatase 197 H (45-117) U/L Troponin I < 0.015 (0-0.045) ng/ml Total Protein 8.6 H (6.4-8.2) gm/dl Albumin 3.3 L (3.4-5.0) gm/dl Globulin 5.3 H (2.5-4.0) gm/dl Albumin/Globulin Ratio 0.6 L (0.9-2) Vitamin B12 (193-986) pg/ml Folate (>5.38) ng/ml TSH 1.280 (0.300-4.500) uIu/ml Anaplasma Smear See Comment A. phagocytophilum DNA Lyme Disease IgG Ab (Negative) Lyme IgG (Western Blot) Lyme IgG 18 kDa Band Lyme IgG 23 kDa Band Lyme IgG 28 kDa Band Lyme IgG 30 kDa Band Lyme IgG 39 kDa Band Lyme IgG 41 kDa Band Lyme IgG 45 kDa Band Lyme IgG 58 kDa Band Lyme IgG 66 kDa Band Lyme IgG 93 kDa Band Lyme IgM Ab (WB) Lyme Disease IgM Ab (Negative) Lyme IgM 23 kDa Band Lyme IgM 39 kDa Band Lyme IgM 41 kDa Band Hepatitis A IgM Ab Hep Bs Antigen Hep B Core IgM Ab Hepatitis C Antibody SARS-CoV-2 Ag (Rapid) (Negative) Blood Type Antibody Screen
[2020-07-10 09:11] LABS: Hepatitis B Surface Antigen Neg (Neg)
[2020-07-10 09:40] LABS: Hepatitis C IgG 13Yrs+Old_Rflx Neg (Neg)
--- NOTE | 2020-07-10 14:31 | Magnetic Resonance Report ---
MRCP CLINICAL HISTORY: Elevated hepatic transaminases. Cirrhosis. Gallstones. COMPARISON STUDY: Abdominal ultrasound dated 07/09/2020. TECHNIQUE: Abdominal MRCP is performed utilizing various T2-weighted sequences in the axial and coron al planes. 3-D reformats are created and assessed. IV contrast was not administered for this examinat ion. FINDINGS: The gallbladder is distended and there are numerous gallstones. There is nonspecific gallbladder wall thickening and pericholecystic fluid. There is no intra or extrahepatic biliary ductal dilatation. T he common bile duct measures up to 3 mm diameter. There are no filling defects to suggest choledochol ithiasis. The pancreatic duct is normal in caliber. The liver is top normal in size measuring 17.6 cm in length. The liver is cirrhotic in morphology and markedly heterogeneous and micronodular in appearance. There is also nodularity of the hepatic surfa ce contour. The spleen is enlarged measuring over 16 cm in length. There is trace perihepatic and per isplenic ascites. A 12 mm round cystic lesion is seen in the pancreatic tail on image #13 of the axia l fiesta series. 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 The pancreas is otherwise normal as imaged . The kidneys are normal in size and without hydronephrosis. The adrenal glands are grossly normal. T he abdominal aorta is normal in caliber. There are upper abdominal and esophageal varices. There is n o bowel obstruction. No pleural effusion is identified. IMPRESSION: 1. The gallbladder is distended and filled with stones. There is nonspecific gallbladder wall thicken ing and pericholecystic fluid which may be related to adjacent hepatocellular disease, in the appropr iate clinical setting, acute cholecystitis would be impossible to exclude and clinical correlation wi ll be essential. Nuclear hepatobiliary scan could be performed to assess for patency of the cystic du ct. 2. The liver is cirrhotic in morphology, multinodular, and heterogeneous in signal intensity. A contr ast-enhanced examination should be considered if there is clinical concern for hepatic neoplasm. 3. There is no intra or extrahepatic biliary ductal dilatation. No choledocholithiasis is seen. 4. Splenomegaly. 5. Upper abdominal and esophageal varices. 6. There is a small volume of abdominal ascites. Dictated: 07/10/2020 12:53 PM Transcribed: 07/10/2020 2:10 PM Yareli [id number] [email or web address] Electronically signed by: Sal Bernal M.D. 07/10/2020 2:30 PM
--- NOTE | 2020-07-10 18:53 | Hospitalist Progress Note ---
Date of Service July 10, 2020 Assessment & Plan (1) Edema, peripheral: Present on admission with lower extremities swelling and bruises Doppler of LE showed no evidence of DVT Lasix 20m x1 given Swelling improves Newly diagnose cirrhosis Liver U/S showed cirrhotic morphology of the liver with trace perihepatic ascites Pt denies any alcohol use or tylenol Gastro on board Will check Liver serology: JUAN CARLOS, AMA, ASMA, TTG IGA, ceruloplasmin, alpha-1 pending Continue lasix prn Transaminitis Liver enzymes elevated with AST 98, ALT 79 and ALK 197 on admission Liver markers trending down Will avoid nephrotoxic agents HCV and HBV antigen negative MRCP done showed gallbladder is distended and filled with stones. The liver is cirrhotic in morphology, multinodular, and heterogeneous in signal intensity. A contrast-enhanced examination should be considered if there is clinical concern for hepatic neoplasm. Continue monitor LFT Thrombocytopenia Mostly related to cirrhosis Platelet on admission 87 No sign of active bleeding Platelet today 74 Will avoid any NSAIDs Hypertension BP on admission 180's/114 received Labetalol IV on admission and starting on Lisinorpil 2.5 mg Continue lisinopril Echo showed left ventricular is normal in size. Mild concentric left ventric ular hypertrophy. Left ventricular wall motion is normal. Grade 1 diastolic dysfunction. Ejection fraction 65 to 70%. Continue monitor BP Hyperglycemia Hba1c 6.1 on 07/10/20 Counseling pt about low carb diet and limited concentrated sweet intake Continue monitor BS Elevated INR INR 1.4 Mostly due to liver etiology No sign of bleeding Anemia Will need outpatient work up Will need outpatient EGD/Colonoscopy DVT px SCD due to thrombocytopenia CODE Status Full code Admission and Anticipated Discharge Date Admission Date: July 09, 2020 Subjective Follow up for lower extremity edema and cirrhosis Pt was seen and examined Lying in bed with no distress Pt said that he feels fine He said that lower extremities swelling improve Denies any chest pain, palpitation, dizziness and SOB Physical Exam Physical Exam: General- No acute distress Head- atraumatic Eyes- PERRL, EOMI, ENT- oropharynx clear Neck- supple, no JVD Lungs- clear to auscultation Heart- regular rhythm; no murmur Abdomen- normal bowel sounds, soft, nontender Extremities- no calf tenderness, +edema L>R Neuro- alert, oriented x 3; PERRL, EOMI; no facial palsy; no dysarthria Skin- warm & dry Results & Data Results & Data ([facility]) Vital Signs (Past 12 Hours) Vital Signs Temp Pulse Pulse Resp BP Pulse Ox 07/10/20 15:21 37.0 C 81 18 137/74 95 07/10/20 14:57 78 07/10/20 11:11 36.8 C 80 18 152/80 H 97 07/10/20 07:30 108 H 07/10/20 07:18 37.0 C 55 L 18 166/95 H 95
[2020-07-11] MEDS ORDERED: lisinopril 5 MG TAB PO SCH
[2020-07-11 04:36] LABS: Hematocrit (blood only) 36.4 % (42-52); Hemoglobin 12.9 g/dL (14.0-18.0); Mean Corpuscular Hemoglobin 37.1 pg (25-34); Mean Corpuscular Hgb Conc 35.4 g/dL (32-36); Mean Corpuscular Volume 104.6 fL (80-100); RDW Coefficient of Variation 13.8 % (11.5-14.5); RDW Standard Deviation 52.9 fL (36.4-46.3); Red Blood Count 3.48 M/uL (4.7-6.1); White Blood Count 7.73 K/uL (4.8-10.8)
[2020-07-11 04:41] LABS: Mean Platelet Volume 10.7 fL (7.4-10.4); Platelet Count 83 K/uL (130-400)
[2020-07-11 04:54] LABS: Albumin Level 2.8 gm/dl (3.4-5.0); Calcium 9.1 mg/dl (8.5-10.1); Creatinine Clr Calc Pharmacy 84.8 ml/min; Est GFR (African American) 100.9; Potassium 3.9 mmol/L (3.5-5.1)
[2020-07-11 04:57] LABS: Albumin Globulin Ratio 0.6 (0.9-2); Bilirubin,Total 4.5 mg/dl (0.2-1); Globulin 4.6 gm/dl (2.5-4.0); Total Protein 7.4 gm/dl (6.4-8.2)
[2020-07-11] MEDS: lisinopril 2.5 MG TAB PO SCH (09:00)
[2020-07-11] MEDS ORDERED: FUROSEMIDE 20 MG TAB PO SCH (11:25)
[2020-07-11 13:47] LABS: Hepatitis A Antibody IgM NON-REACTIVE (NON-REACTIVE); Hepatitis B Core Antibody IgM NON-REACTIVE (NON-REACTIVE)
--- NOTE | 2020-07-11 17:35 | Discharge Summary ---
Date of Service July 11, 2020 Admission HPI Per Admitting Provider No significant medical history. Patient has not had a primary care doctor in the last 20 years. 1 week history of bruising on the left foot followed by leg swelling initially left followed by the right leg. No recollection of recent trauma although he is very active with household/yard work. No fever, no chills. No chest pain, no S OB. No headache. No unusual abdominal pain or distention as per patient. No inordinate alcohol or Tylenol intake. At the ER, SBP 190s. Patient given Labetalol. Medical History as above History tick bite infection status post outpatient Doxycycline Rx 2015 Surgical History : Appendectomy Family History : No liver disease Personal/Social history : Non-smoker, occasional EtOH intake, psychiatric nurse Admission Exam Per Admitting Provider GENERAL: Comfortable, pleasant, no respiratory distress SKIN: Pallor, warm HEENT: Alopecia, bespectacled, pale palpebral conjunctivae, no ptosis, dry buccal mucosa NECK : Supple, no tenderness CHEST : CTA, no tenderness HEART : RRR, no obvious murmurs ABDOMEN: Some distention, nontender EXTREMITIES : LE swelling L>R , no LE tenderness, ecchymosis left foot, no other conspicuous deformities noted NEUROLOGIC : Coherent, no facial asymmetry, no other gross focality Principal Diagnosis Edema, peripheral: Newly diagnose cirrhosis Transaminitis Thrombocytopenia Hypertension Hyperglycemia Elevated INR Anemia Discharge Exam General- No acute distress Head- atraumatic Eyes- PERRL, EOMI, ENT- oropharynx clear Neck- supple, no JVD Lungs- clear to auscultation Heart- regular rhythm; no murmur Abdomen- normal bowel sounds, soft, non tender Extremities- no calf tenderness, +edema improved significantly L>R Neuro- alert, oriented x 3; PERRL, EOMI; no facial palsy; no dysarthria Skin- warm & dry Discharge Data Allergies Allergy/AdvReac Type Severity Reaction Status Date / Time Sulfa (Sulfonamide Allergy Mild Rash Verified 07/09/20 22:27 Antibiotics) morphine AdvReac Intermediate crazy Verified 07/09/20 22:26 Consultations 07/09/20 21:14 ED Decision to Admit Stat 07/10/20 00:13 Consult Gastroenterology Routine Ordered Studies 07/09/20 19:35 US venous doppler LE BI Stat 07/09/20 22:19 US abdomen ltd ascites Urgent US liver Urgent 07/10/20 11:35 MR MRCP Routine MRCP CLINICAL HISTORY: Elevated hepatic transaminases. Cirrhosis. Gallstones. COMPARISON STUDY: Abdominal ultrasound dated 07/09/2020. TECHNIQUE: Abdominal MRCP is performed utilizing various T2-weighted sequences in the axial and coronal planes. 3-D reformats are created and assessed. IV contrast was not administered for this examination. FINDINGS: The gallbladder is distended and there are numerous gallstones. There is nonspecific gallbladder wall thickening and pericholecystic fluid. There is no intra or extrahepatic biliary ductal dilatation. The common bile duct measures up to 3 mm diameter. There are no filling defects to suggest choledocholithiasis. The pancreatic duct is normal in caliber. The liver is top normal in size measuring 17.6 cm in length. The liver is cirrhotic in morphology and markedly heterogeneous and micronodular in appearance. There is also nodularity of the hepatic surface contour. The spleen is enlarged measuring over 16 cm in length. There is trace perihepatic and perisplenic ascites. A 12 mm round cystic lesion is seen in the pancreatic tail on image #13 of the axial fiesta series. 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 The pancreas is otherwise normal as imaged. The kidneys are normal in size and without hydronephrosis. The adrenal glands are grossly normal. The abdominal aorta is normal in caliber. There are upper abdominal and esophageal varices. There is no bowel obstruction. No pleural effusion is identified. IMPRESSION: 1. The gallbladder is distended and filled with stones. There is nonspecific gallbladder wall thickening and pericholecystic fluid which may be related to adjacent hepatocellular disease, in the appropriate clinical setting, acute cholecystitis would be impossible to exclude and clinical correlation will be essential. Nuclear hepatobiliary scan could be performed to assess for patency of the cystic duct. 2. The liver is cirrhotic in morphology, multinodular, and heterogeneous in signal intensity. A contrast-enhanced examination should be considered if there is clinical concern for hepatic neoplasm. 3. There is no intra or extrahepatic biliary ductal dilatation. No choledocholithiasis is seen. 4. Splenomegaly. 5. Upper abdominal and esophageal varices. 6. There is a small volume of abdominal ascites. Dictated: 07/10/2020 12:53 PM Transcribed: 07/10/2020 2:10 PM Yareli [id number] [facility] Electronically signed by: Sal Bernal M.D. 07/10/2020 2:30 PM Dictated: 07/10/20 1253Transcribed: 07/10/20 1410 US liver CLINICAL HISTORY: Abnormal liver function tests COMPARISON STUDY: No previous studies for comparison. FINDINGS: The pancreas appears sonographically normal. There is diffuse heterogeneity in hepatic echotexture. This likely reflects underlying hepatic cirrhosis. A diffuse infiltrative process could appear similar. Clinical correlation recommended. There is trace perihepatic fluid. There is no right-sided hydronephrosis. There is cholelithiasis. There is no ductal dilatation. The common bile duct measures 5 mm. IMPRESSION: 1. Cirrhotic morphology of the liver with trace perihepatic ascites 2. Cholelithiasis 3. No ductal dilatation ACT 112: Negative or not required by law. Electronically signed by: Karel Kay M.D. 07/10/2020 8:09 AM Dictated: 07/10/20 0807Transcribed: 07/10/20806 US abdomen ltd ascites HISTORY: 70 years-old Male abd distension acute generalized abdominal distention with clinical concern for ascites COMPARISON: Right upper quadrant abdominal ultrasound of same day TECHNIQUE: Multiple real-time sonographic images of the abdomen were obtained assessing grayscale appearance FINDINGS: Cirrhotic morphology of the liver. Trace perihepatic ascites without drainable pocket of fluid identified. Splenomegaly, 13.0 cm. IMPRESSION: Trace perihepatic ascites. ACT 112: Negative or not required by law. The above report was generated using voice recognition software. It may contain grammatical, syntax or spelling errors. Electronically signed by: Brandon Peck M.D. 07/10/2020 7:20 AM Dictated: 07/10/20 0719Transcribed: 07/10/20 0719 XR chest 2V PA/lateral CLINICAL HISTORY: Lower extremity edema. Evaluate for congestive failure COMPARISON STUDY: No previous studies for comparison. FINDINGS: The heart is normal in size. There is no failure. There is no focal pulmonary consolidation. There are no pleural effusions. Degenerative changes are present within the spine.[ IMPRESSION: No active disease in the chest. ACT 112: Negative or not required by law. Electronically signed by: Karel Kay M.D. 07/09/2020 8:52 PM Dictated: 07/09/202051Transcribed: 07/09/202051 US venous doppler LE BI CLINICAL HISTORY: Bilateral leg swelling COMPARISON STUDY: No previous studies for comparison. FINDINGS: Real-time and color flow Doppler imaging were performed. Flow was seen within the femoral, popliteal and calf veins with no intraluminal thrombus demonstrated. The saphenous vein is patent. IMPRESSION: No evidence of lower extremity DVT. ACT 112: Negative or not required by law. Electronically signed by: Karel Kay M.D. 07/09/2020 8:34 PM Dictated: 07/09/202033Transcribed: 07/09/202033 Hospital Course (1) Edema, peripheral: Present on admission with lower extremities swelling and bruises Doppler of LE showed no evidence of DVT Additional Lasix 20mg x1 given today Swelling improves significantly. Might consider to give Lasix twice a week for now. Advised pt to follow a low salt diet Newly diagnose cirrhosis Liver U/S showed cirrhotic morphology of the liver with trace perihepatic ascites Pt denies any alcohol use or tylenol Gastro on board Will need to check JUAN CARLOS, AMA, ASMA, TTG IGA, ceruloplasmin, alpha-1 outpatient Follow up with Gastro outpatient hepatology follow-up. Continue lasix prn Transaminitis Liver enzymes elevated with AST 98, ALT 79 and ALK 197 on admission Liver markers continue trending down with AST 78 and ALK 137 Will avoid nephrotoxic agents HCV and HBV antigen negative MRCP done showed gallbladder is distended and filled with stones. The liver is cirrhotic in morphology, multinodular, and heterogeneous in signal intensity. A contrast-enhanced examination should be considered if there is clinical concern for hepatic neoplasm. Will need to check LFT in 1 week outpatient Thrombocytopenia Mostly related to cirrhosis Platelet on admission 87 No sign of active bleeding Platelet slightly improved today to 83 Continue to avoid any NSAIDs Check CBC in 1 week Hypertension BP on admission 180's/114, BP improved now Received Labetalol IV on admission Continue Lisinopril increased to 5 mg daily Echo showed left ventricular is normal in size. Mild concentric left ventricular hypertrophy. Left ventricular wall motion is normal. Grade 1 diastolic dysfunction. Ejection fraction 65 to 70%. Continue monitor BP Hyperglycemia Hba1c 6.1 on 07/10/20 Counseling pt about low carb diet and limited concentrated sweet intake Continue monitor BS. Check Hba1c in 4 to 6 months Elevated INR INR 1.4 on admission Mostly due to liver etiology No sign of bleeding Anemia Hgb 12.9 today Will need outpatient work up Will need outpatient EGD/Colonoscopy, please follow up with gastro DVT px SCD due to thrombocytopenia CODE Status Full code Disposition Discharge home today Total Time Total Time Spent Total Time Spent (In Minutes): 35 minutes Total Time Includes: Examination of the Patient, Discharge Planning, Medication Reconciliation, Communication With Other Providers and Other Discharge Plan Discharge Items Patient Disposition: Home - Self-Care Reason For Visit: HTN URGENCY Discharge Diagnosis: Edema, peripheral: Newly diagnose cirrhosis Transaminitis Thrombocytopenia Hypertension Hyperglycemia Elevated INR Anemia Activity: Resume your previous activity Non-emergency contact: Primary Care Provider Call non-emergency contact if: you have any medication questions Follow-up/Referrals: PCP,NO [Primary Care Provider] - Diet: Low Sodium (2gm) Addtl Attending Provider Instructions: Follow up with primary care provider in 1 week ( will contact you on Monday for an appointment) Follow up with Gastroenterology for hepatology clinic (Your physician will refer you ) Check LFTs in 1 week to monitor your liver enzymes Check BMP in 1 week to monitor your kidney and electrolytes since starting on Lisinopril Check CBC in 1 week week to monitor your platelet count Please avoid any NSAID such as (motrin, aleve, ibuprofen, naproxen, advil, ...) to avoid the risk of bleeding due to low platelets You will need to arrange with Gastroenterology to get an Endoscopy and colonoscopy work up for the anemia Continue monitor your blood pressure and bring your blood pressure log at your next follow up appointment with PCP Follow up a low salt diet Keep your leg elevate to help with the swelling Western blot for lyme disease and anaplasmosis result pending (Your physician will discuss with you at your next appointment) Pending Studies at Discharge: Yes Studies:: Western blot for Lyme disease and anaplasmosis result pending Stand-Alone Forms: Nephosity, Smoking Cessation Medications and DC Order Prescriptions: New lisinopril 5 mg tablet 5 mg PO DAILY Qty: 30 RF: 0 Continued multivitamin [Multiple Vitamins] Tablet 1 tab PO DAILY RF: 0 Discharge Orders: Discharge Order (Routine); Ordered 07/11/20 Ordered By: Griselda Vargas/Other Patient Handouts: A1C Admission Data Admit Date/Time: 07/09/20 22:22 Attending Provider: Griselda Enriquez Admit Provider: Ananth Cat Primary Care Provider: PCP,NO Other Providers: Ananth Cat ; Ozzy Gracia ; Hayley Mills ; Antonella Arechiga ; Kasey Richard ; Warren Garcia ; Tyree Castellanos ; Anita Roy ; Pierre Siu ; Jose Reyes ; Carolann Deleon ; Sadia Howell ; Anita Kumar ; Solange Gill ; Tony Sanderson Other Interventions: Discharge Summary Assessment (RN) Last Done: 07/11/20 17:34
[2020-07-12] MEDS ORDERED: lisinopril 5 MG TAB PO SCH (09:00)
[2020-07-14 03:52] LABS: 18KDIGG Band NON-REACTIVE; 23KDIGG Band NON-REACTIVE; 23KDIGM Band NON-REACTIVE; 28KDIGG Band REACTIVE; 30KDIGG Band NON-REACTIVE; 39KDIGG Band REACTIVE; 39KDIGM Band NON-REACTIVE; 41KDIGG Band REACTIVE; 41KDIGM Band REACTIVE; 45KDIGG Band NON-REACTIVE; 58KDIGG Band REACTIVE; 66KDIGG Band NON-REACTIVE; 93KDIGG Band NON-REACTIVE; Lyme Antibodies, WB IgG NEGATIVE (NEGATIVE); Lyme Antibodies, WB IgM NEGATIVE (NEGATIVE)
== END 2020-07-11 19:00 | disposition home or self-care (01) ==
LOC: ED 17:48 → 2N 17:48

== ENCOUNTER 2021-02-10 18:32 | Observation (INO) ==
[2021-02-10] MEDS ORDERED: SODIUM CHLORIDE 0.9% 500 ML IV SCH (18:45)
--- NOTE | 2021-02-10 18:53 | Emergency Department Note ---
Impression & Plan Weakness, Fracture of proximal humerus, Acute hyponatremia, Anemia, Acute dehydration ED Provider Note NAME: VIOLET RODRIGUEZ AGE: 71 SEX: M : 1950 ARRIVES VIA: Ambulance INFORMANT: [Patient] ED PROVIDER(S): [Sal Olea MD] CHIEF COMPLAINT: Near syncope HISTORY OF PRESENT ILLNESS: The patient is a 71-year-old male who states that on Zackery, 5 days ago, he fell in his garden and fractured his left proximal humerus. He has seen orthopedics and no surgery is indicated. He is in a sling. The patient is using tramadol currently for pain, he was on oxycodone but is no longer using the oxycodone. He is using the tramadol every 4-6 hours. The patient states that he has noticed some difficulty with ambulation, he has some pain in his legs and he feels a bit off balance. He thinks it might be his neuropathy. He also states that he has a lot of pain in the left shoulder when he tries to ambulate. His was concerned tonight because he could not walk and she called the ambulance. There has been no chest pain, no shortness of breath. No true loss of consciousness. He has not had a second fall. He does admit that he is constipated from his pain meds. REVIEW OF SYSTEMS: See HPI for pertinent positives and negatives. A total of ten systems were reviewed and were otherwise negative. PMHx/PSHx: See Below SOCIAL HISTORY: See Below. PHYSICAL EXAM: GENERAL: Patient is in no acute distress. HEENT: No acute trauma, normocephalic atraumatic, mucous membranes dry, no nasal congestion, no scleral icterus. NECK: No stridor, no adenopathy, no meningismus, trachea is midline. LUNGS: Clear to auscultation bilaterally, no wheeze, no rhonchi, breath sounds equal. HEART: Without murmurs gallops or rubs, regular rate and rhythm. ABDOMEN: Soft, nontender, bowel sounds positive, no hernias, no peritonitis. EXTREMITIES: No cyanosis. Mild bilateral pedal edema. His left upper extremity is in a sling and there is significant contusion around the left axilla and left bicep. There is normal cap refill in his left fingertips. NEUROLOGIC: Oriented x 3, no acute motor or sensory deficits, no focal weakness. SKIN: No rash, no jaundice, no diaphoresis. DIFFERENTIAL DIAGNOSIS: Infection, dehydration, metabolic abnormality, hypo/hyperglycemia, electrolyte disturbance, medication reaction, anemia, hypoxia, cardiac sources, intracerebral event, toxicologic issues, stroke, TIA, as well as other pathologies. EMERGENCY DEPARTMENT COURSE/PROCEDURES: ECG: Indication was weakness. The ECG shows a normal sinus rhythm with a rate of 95. There is an old septal infarct. There is no ST elevation, no PVCs. There are some inverted T waves in the lateral leads. Compared to an ECG from 09 July 2020, there is no significant change. Continuous Cardiac Monitoring: An order was placed for continuous cardiac monitoring. The monitor shows a rate of 98 with normal sinus rhythm. MEDICAL DECISION MAKING: There is no leukocytosis. The patient is anemic. The hemoglobin is 10, about 2 points lower than baseline. I suspect he has lost some blood into the soft tissue around his left proximal humerus fracture. The patient does have a lower platelet count although, this is baseline. The sodium is low at 130. No kidney failure. There were some subtle liver enzyme elevations. The ammonia level was undetectable. The patient appeared to be in a euthyroid state. ECG shows a sinus rhythm, no acute ischemia. Cardiac enzyme testing x1 is not consistent with acute cardiac injury. Covid testing returned negative. Chest x-ray did not show pneumonia or CHF. KUB revealed constipation. The patient was given IV saline, 1 L. He was given 2 Senokot tablets orally. The patient is anemic, hyponatremic, dehydrated. He has a left proximal humeral fracture. He has a hard time getting around and is here for increasing weakness and difficulty ambulating. I believe he requires a hospital stay and eventually rehab. I did speak to the patient and his family, I spoke with case management, the on-call hospitalist was consulted. 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 Beliefs That Will Affect Care: None Current Living Situation: Spouse Feels Safe at Home: Yes Assistive Devices: None Allergies Allergies Allergy/AdvReac Type Severity Reaction Status Date / Time Sulfa (Sulfonamide Allergy Mild Rash Verified 02/10/21 22:40 Antibiotics) morphine AdvReac Intermediate crazy Verified 02/10/21 22:41 Home Meds Home Medications Medication Instructions Recorded Confirmed multivitamin [Multiple Vitamins] 1 tab PO DAILY 07/09/20 02/10/21 gabapentin 300 mg PO TID 02/05/21 02/10/21 lisinopril 10 mg PO DAILY 02/05/21 02/10/21 magnesium oxide 400 mg PO DAILY 02/05/21 02/10/21 omeprazole 20 mg PO DAILY PRN 02/05/21 02/10/21 spironolactone 25 mg PO DAILY 02/05/21 02/10/21 trazodone 25 mg PO HS PRN 02/05/21 02/10/21 ondansetron 4 mg PO Q6H PRN 02/10/21 02/10/21 Previous Rx's Medication Instructions Recorded oxycodone 5 mg PO Q4H #15 tab 02/05/21 tramadol 50 mg tablet 50 mg PO Q4H PRN #20 tab 02/08/21 Results & Data (ED) Vital Signs Vital Signs - 24 hr 02/10/21 18:04 02/10/21 18:45 02/10/21 20:54 Temperature 37.1 C Temperature Source Oral Pulse Rate 105 H Pulse Rate [Apical] 77 Pulse Rate from SpO2 Sensor Pulse Rhythm Regular Pulse Rhythm [Apical] Regular Pulse Strength Normal Pulse Strength [Apical] Normal Respiratory Rate 20 18 Respiratory Effort / Characteristics Non-Labored Spontaneous Non-Labored Spontaneous Respiratory Depth Normal Normal Respiratory Pattern Regular Regular Blood Pressure 130/77 Blood Pressure [Right Arm] 130/77 Blood Pressure Mean 94 Blood Pressure Mean [Right Arm] 94 Blood Pressure Position Lying Blood Pressure Position [Right Arm] Lying Pulse Oximetry 99 99 97 Oxygen Delivery Method Room Air Room Air Room Air Sepsis Recent Fever Within 48 Hours No Sepsis New/Unexplained Change in Mental Status N/A Sepsis Action Taken by Nursing No Action Required 02/10/21 21:27 Temperature Temperature Source Pulse Rate 94 H Pulse Rate [Apical] Pulse Rate from SpO2 Sensor 94 H Pulse Rhythm Pulse Rhythm [Apical] Pulse Strength Pulse Strength [Apical] Respiratory Rate 16 Respiratory Effort / Characteristics Respiratory Depth Respiratory Pattern Blood Pressure 112/72 Blood Pressure [Right Arm] Blood Pressure Mean 85 Blood Pressure Mean [Right Arm] Blood Pressure Position Blood Pressure Position [Right Arm] Pulse Oximetry 96 Oxygen Delivery Method Sepsis Recent Fever Within 48 Hours Sepsis New/Unexplained Change in Mental Status Sepsis Action Taken by Prison Medications Current Medication List: was personally reviewed by me Laboratory Data Attestation: I reviewed the patient's lab results. Result diagrams: 02/10/21 21:02 02/10/21 21:02 Lab Results 02/10/21 02/10/21 02/10/21 Range/Units 19:36 19:36 19:37 WBC Cancelled RBC Cancelled Hgb Cancelled Hct Cancelled MCV Cancelled MCH Cancelled MCHC Cancelled RDW Std Deviation Cancelled RDW Coeff of Juanjose Cancelled Plt Count Cancelled MPV Cancelled Immature Gran % (Auto) Cancelled Neut % (Auto) Cancelled Lymph % (Auto) Cancelled Treasure % (Auto) Cancelled Eos % (Auto) Cancelled Baso % (Auto) Cancelled Neut # (Auto) Cancelled Lymph # (Auto) Cancelled Treasure # (Auto) Cancelled Eos # (Auto) Cancelled Baso # (Auto) Cancelled Immature Gran # (Auto) Cancelled Absolute Nucleated RBC Cancelled Nucleated RBC % (auto) Cancelled Neutrophils % (Manual) Cancelled Band Neutrophils % Cancelled Lymphocytes % (Manual) Cancelled Prolymphocyte % Cancelled Reactive Lymphs % (Man) Cancelled Monocytes % (Manual) Cancelled Eosinophils % (Manual) Cancelled Basophils % (Manual) Cancelled Metamyelocytes % (Man) Cancelled Myelocytes % (Man) Cancelled Promyelocytes % (Man) Cancelled Blast Cells % (Manual) Cancelled Plasma Cell % (Manual) Cancelled Other Cells % Cancelled Nucleated RBC % Cancelled Neutrophils # (Manual) Cancelled Band Neutrophils # Cancelled Total Absolute Neuts Cancelled Lymphocytes # (Manual) Cancelled Prolymphocyte # Cancelled Reactive Lymphs # Cancelled Total Abs Lymphocytes Cancelled Monocytes # (Manual) Cancelled Eosinophils # (Manual) Cancelled Basophils # (Manual) Cancelled Metamyelocytes # (Man) Cancelled Myelocytes # (Manual) Cancelled Promyelocytes # (Man) Cancelled Blast Cells # (Man) Cancelled Plasma Cell # (Manual) Cancelled Other Cells # Cancelled Nucleated RBCs # (Man) Cancelled Hypersegmented Neuts Cancelled Hyposegmented Neuts Cancelled Hypogranular Neuts Cancelled Large Granular Lymphs Cancelled # Lrg Granular Lymphs Cancelled Hairy Cells Cancelled Smudge Cells Cancelled Toxic Granulation Cancelled Toxic Vacuolation Cancelled Dohle Bodies Cancelled Frannie Rods Cancelled Platelet Estimate Cancelled Hypogranular Platelets Cancelled Clumped Platelets Cancelled Giant Platelets Cancelled Platelet Satelliting Cancelled RBC Morphology Cancelled Polychromasia Cancelled Hypochromasia Cancelled Poikilocytosis Cancelled Basophilic Stippling Cancelled Anisocytosis Cancelled Microcytosis Cancelled Macrocytosis Cancelled Spherocytes Cancelled Pappenheimer Bodies Cancelled Sickle Cells Cancelled Target Cells Cancelled Tear Drop Cells Cancelled Ovalocytes Cancelled Stomatocytes Cancelled [place] Bodies Cancelled Echinocytes Cancelled Acanthocytes (Spur) Cancelled Rouleaux Cancelled RBC Agglutinates Cancelled Schistocytes Cancelled RBC Morph Comment Cancelled Sezary Cell Cancelled Sodium 130 L (136-145) mmol/L Potassium (3.5-5.1) mmol/L Chloride 99 (98-107) mmol/L Carbon Dioxide 25 (21-32) mmol/L Anion Gap 6.0 (3-11) BUN 11 (7-18) mg/dl Creatinine 0.69 (0.6-1.4) mg/dl Est Cr Clr Drug Dosing 109.6 ml/min Est GFR ( Amer) 110.7 ml/min Est GFR (Non-Af Amer) 95.5 ml/min BUN/Creatinine Ratio 16.2 (10-20) Glucose 127 H (70-99) mg/dl Calcium 8.8 (8.5-10.1) mg/dl Magnesium (1.8-2.4) mg/dl Total Bilirubin 4.6 H (0.2-1) mg/dl AST (15-37) U/L ALT 67 (12-78) U/L Alkaline Phosphatase 127 H (45-117) U/L Ammonia (11-32) umol/L Total Creatine Kinase (39-308) U/L Troponin I < 0.015 (0-0.045) ng/ml Total Protein 7.0 (6.4-8.2) gm/dl Albumin 2.6 L (3.4-5.0) gm/dl Globulin 4.4 H (2.5-4.0) gm/dl Albumin/Globulin Ratio 0.6 L (0.9-2) TSH 2.160 (0.300-4.500) uIu/ml COVID-19 Eval Order Covid19 at [facility] SARS-CoV-2 (PCR) (Negative) 02/10/21 02/10/21 02/10/21 Range/Units 19:37 21:02 21:02 WBC 9.02 RBC 2.66 L Hgb 10.3 L Hct 28.3 L MCV 106.4 H MCH 38.7 H MCHC 36.4 H RDW Std Deviation 58.0 H RDW Coeff of Juanjose 15.1 H Plt Count 106 L MPV 9.6 Immature Gran % (Auto) 0.6 Neut % (Auto) 58.4 Lymph % (Auto) 22.0 Treasure % (Auto) 16.4 Eos % (Auto) 2.3 Baso % (Auto) 0.3 Neut # (Auto) 5.27 Lymph # (Auto) 1.98 Treasure # (Auto) 1.48 H Eos # (Auto) 0.21 Baso # (Auto) 0.03 Immature Gran # (Auto) 0.05 H Absolute Nucleated RBC Nucleated RBC % (auto) Neutrophils % (Manual) Band Neutrophils % Lymphocytes % (Manual) Prolymphocyte % Reactive Lymphs % (Man) Monocytes % (Manual) Eosinophils % (Manual) Basophils % (Manual) Metamyelocytes % (Man) Myelocytes % (Man) Promyelocytes % (Man) Blast Cells % (Manual) Plasma Cell % (Manual) Other Cells % Nucleated RBC % Neutrophils # (Manual) Band Neutrophils # Total Absolute Neuts Lymphocytes # (Manual) Prolymphocyte # Reactive Lymphs # Total Abs Lymphocytes Monocytes # (Manual) Eosinophils # (Manual) Basophils # (Manual) Metamyelocytes # (Man) Myelocytes # (Manual) Promyelocytes # (Man) Blast Cells # (Man) Plasma Cell # (Manual) Other Cells # Nucleated RBCs # (Man) Hypersegmented Neuts Hyposegmented Neuts Hypogranular Neuts Large Granular Lymphs # Lrg Granular Lymphs Hairy Cells Smudge Cells Toxic Granulation Toxic Vacuolation Dohle Bodies Frannie Rods Platelet Estimate Hypogranular Platelets Clumped Platelets Giant Platelets Platelet Satelliting RBC Morphology Polychromasia Hypochromasia Poikilocytosis Basophilic Stippling Anisocytosis Microcytosis Macrocytosis Spherocytes Pappenheimer Bodies Sickle Cells Target Cells Tear Drop Cells Ovalocytes Stomatocytes [place] Bodies Echinocytes Acanthocytes (Spur) Rouleaux RBC Agglutinates Schistocytes RBC Morph Comment Sezary Cell Sodium (136-145) mmol/L Potassium 4.5 (3.5-5.1) mmol/L Chloride (98-107) mmol/L Carbon Dioxide (21-32) mmol/L Anion Gap (3-11) BUN (7-18) mg/dl Creatinine (0.6-1.4) mg/dl Est Cr Clr Drug Dosing ml/min Est GFR ( Amer) ml/min Est GFR (Non-Af Amer) ml/min BUN/Creatinine Ratio (10-20) Glucose (70-99) mg/dl Calcium (8.5-10.1) mg/dl Magnesium 1.9 (1.8-2.4) mg/dl Total Bilirubin (0.2-1) mg/dl AST 69 H (15-37) U/L ALT (12-78) U/L Alkaline Phosphatase (45-117) U/L Ammonia (11-32) umol/L Total Creatine Kinase 96 (39-308) U/L Troponin I (0-0.045) ng/ml Total Protein (6.4-8.2) gm/dl Albumin (3.4-5.0) gm/dl Globulin (2.5-4.0) gm/dl Albumin/Globulin Ratio (0.9-2) TSH (0.300-4.500) uIu/ml COVID-19 Eval Order SARS-CoV-2 (PCR) NEGATIVE (Negative) 02/10/21 Range/Units 21:40 WBC RBC Hgb Hct MCV MCH MCHC RDW Std Deviation RDW Coeff of Juanjose Plt Count MPV Immature Gran % (Auto) Neut % (Auto) Lymph % (Auto) Treasure % (Auto) Eos % (Auto) Baso % (Auto) Neut # (Auto) Lymph # (Auto) Treasure # (Auto) Eos # (Auto) Baso # (Auto) Immature Gran # (Auto) Absolute Nucleated RBC Nucleated RBC % (auto) Neutrophils % (Manual) Band Neutrophils % Lymphocytes % (Manual) Prolymphocyte % Reactive Lymphs % (Man) Monocytes % (Manual) Eosinophils % (Manual) Basophils % (Manual) Metamyelocytes % (Man) Myelocytes % (Man) Promyelocytes % (Man) Blast Cells % (Manual) Plasma Cell % (Manual) Other Cells % Nucleated RBC % Neutrophils # (Manual) Band Neutrophils # Total Absolute Neuts Lymphocytes # (Manual) Prolymphocyte # Reactive Lymphs # Total Abs Lymphocytes Monocytes # (Manual) Eosinophils # (Manual) Basophils # (Manual) Metamyelocytes # (Man) Myelocytes # (Manual) Promyelocytes # (Man) Blast Cells # (Man) Plasma Cell # (Manual) Other Cells # Nucleated RBCs # (Man) Hypersegmented Neuts Hyposegmented Neuts Hypogranular Neuts Large Granular Lymphs # Lrg Granular Lymphs Hairy Cells Smudge Cells Toxic Granulation Toxic Vacuolation Dohle Bodies Frannie Rods Platelet Estimate Hypogranular Platelets Clumped Platelets Giant Platelets Platelet Satelliting RBC Morphology Polychromasia Hypochromasia Poikilocytosis Basophilic Stippling Anisocytosis Microcytosis Macrocytosis Spherocytes Pappenheimer Bodies Sickle Cells Target Cells Tear Drop Cells Ovalocytes Stomatocytes [place] Bodies Echinocytes Acanthocytes (Spur) Rouleaux RBC Agglutinates Schistocytes RBC Morph Comment Sezary Cell Sodium (136-145) mmol/L Potassium (3.5-5.1) mmol/L Chloride (98-107) mmol/L Carbon Dioxide (21-32) mmol/L Anion Gap (3-11) BUN (7-18) mg/dl Creatinine (0.6-1.4) mg/dl Est Cr Clr Drug Dosing ml/min Est GFR ( Amer) ml/min Est GFR (Non-Af Amer) ml/min BUN/Creatinine Ratio (10-20) Glucose (70-99) mg/dl Calcium (8.5-10.1) mg/dl Magnesium (1.8-2.4) mg/dl Total Bilirubin (0.2-1) mg/dl AST (15-37) U/L ALT (12-78) U/L Alkaline Phosphatase (45-117) U/L Ammonia < 10.0 L (11-32) umol/L Total Creatine Kinase (39-308) U/L Troponin I (0-0.045) ng/ml Total Protein (6.4-8.2) gm/dl Albumin (3.4-5.0) gm/dl Globulin (2.5-4.0) gm/dl Albumin/Globulin Ratio (0.9-2) TSH (0.300-4.500) uIu/ml COVID-19 Eval Order SARS-CoV-2 (PCR) (Negative) Administered Medications Discontinued Medications Sodium Chloride (Nss) 500 mls @ 999 mls/hr IV .Q31M MURALI Stop: 02/10/21 19:15 Last Infusion: 02/10/21 20:46 Dose: 0 mls/hr Documented by: [id number] Admin: 02/10/21 20:05 Dose: 999 mls/hr Documented by: [id number] Sodium Chloride (Nss 1000ml) 500 mls @ 999 mls/hr IV .Q31M ONE Stop: 02/10/21 22:10 Last Infusion: 02/10/21 22:04 Dose: 0 mls/hr Documented by: [id number] Admin: 02/10/21 21:46 Dose: 999 mls/hr Documented by: [id number] Senna/Docusate Sodium (Docusate Sodium/Senna 50/8.6mg Tab) 2 tab PO NOW STA Stop: 02/10/21 20:54 Last Admin: 02/10/21 21:28 Dose: 2 tab Documented by: [id number] Imaging Data Radiologist's Impression: Chest X-Ray 02/10/21 18:45 XR chest 1V portable HISTORY: weakness COMPARISON: Chest 07/09/2020. FINDINGS: There are low lung volumes. No pleural effusions. No pneumothorax. No new focal lung consolidations to suggest pneumonia. No evidence for pulmonary edema. The heart is normal in size. There is mild diffuse interstitial thickening, unchanged. This is likely chronic. Redemonstration of the left humeral neck fracture. No dislocation. IMPRESSION: 1. No acute process within the chest. 2. Redemonstration of the left humeral neck fracture. ACT 112: Negative or not required by law. Electronically signed by: Perry Bray M.D. 02/10/2021 8:27 PM KUB X-Ray 02/10/21 18:56 KUB HISTORY: No bowel movement for a few days. COMPARISON: None. FINDINGS: No dilated loops of small bowel to suggest an obstruction. No renal calculi. No ureteral calculi. Calcifications in the deep pelvis likely represent phleboliths. Mildly distended colon measuring 7.7 cm. This is filled with a moderate to large amount of well-formed stool. There is gas within the rectum. No evidence for large bowel obstruction. No pneumoperitoneum or pneumatosis. IMPRESSION: 1. Moderate to large amount of well-formed stool seen throughout the colon. 2. No evidence for bowel obstruction. ACT 112: Negative or not required by law. Electronically signed by: Perry Bray M.D. 02/10/2021 8:48 PM Discharge Plan Visit Data Chief Complaint: Constipation Stated Complaint: constipation/no BM since Monday/ increased pain ED Provider: Sal Olea Discharge Problem: Weakness, Fracture of proximal humerus, Acute hyponatremia, Anemia, Acute dehydration Patient Disposition: Admitted As Inpatient Condition: Fair Forms Stand Alone Forms: [facility] Prescriptions Prescriptions: No Action tramadol 50 mg tablet 50 mg PO Q4H PRN (Reason: pain) Qty: 20 RF: 0 multivitamin [Multiple Vitamins] Tablet 1 tab PO DAILY RF: 0 ondansetron 4 mg tablet,disintegrating 4 mg PO Q6H PRN (Reason: Nausea) RF: 0 oxycodone 5 mg tablet 5 mg PO Q4H Qty: 15 RF: 0 trazodone 50 mg Tablet 25 mg PO HS PRN (Reason: Sleep) RF: 0 spironolactone 25 mg tablet 25 mg PO DAILY RF: 0 lisinopril 10 mg tablet 10 mg PO DAILY RF: 0 gabapentin 300 mg capsule 300 mg PO TID RF: 0 omeprazole 20 mg Tablet,Delayed Release (Dr/Ec) 20 mg PO DAILY PRN (Reason: HEARTBURN/INDIGESTION) RF: 0 magnesium oxide 400 mg magnesium Tablet 400 mg PO DAILY RF: 0 Referrals Referrals: Rosana Bhagat DO [Primary Care Provider] - Discharge Problem: Fracture of proximal humerus Qualifiers: Encounter type: subsequent encounter Fracture type: closed Fracture morphology: unspecified fracture morphology Laterality: left Fracture healing: with routine healing Qualified Code(s): S42.202D - Unspecified fracture of upper end of left humerus, subsequent encounter for fracture with routine healing Anemia Qualifiers: Anemia type: unspecified type Qualified Code(s): D64.9 - Anemia, unspecified
--- NOTE | 2021-02-10 20:28 | XRay Report ---
XR chest 1V portable HISTORY: weakness COMPARISON: Chest 07/09/2020. FINDINGS: There are low lung volumes. No pleural effusions. No pneumothorax. No new focal lung consol idations to suggest pneumonia. No evidence for pulmonary edema. The heart is normal in size. There is mild diffuse interstitial thickening, unchanged. This is likely chronic. Redemonstration of the left humeral neck fracture. No dislocation. IMPRESSION: 1. No acute process within the chest. 2. Redemonstration of the left humeral neck fracture. ACT 112: Negative or not required by law. Electronically signed by: Perry Bray M.D. 02/10/2021 8:27 PM
--- NOTE | 2021-02-10 20:49 | XRay Report ---
KUB HISTORY: No bowel movement for a few days. COMPARISON: None. FINDINGS: No dilated loops of small bowel to suggest an obstruction. No renal calculi. No ureteral c alculi. Calcifications in the deep pelvis likely represent phleboliths. Mildly distended colon measur ing 7.7 cm. This is filled with a moderate to large amount of well-formed stool. There is gas within the rectum. No evidence for large bowel obstruction. No pneumoperitoneum or pneumatosis. IMPRESSION: 1. Moderate to large amount of well-formed stool seen throughout the colon. 2. No evidence for bowel obstruction. ACT 112: Negative or not required by law. Electronically signed by: Perry Bray M.D. 02/10/2021 8:48 PM
[2021-02-10 20:52] LABS: Alanine Aminotransferase 67 U/L (12-78); Albumin Globulin Ratio 0.6 (0.9-2); Albumin Level 2.6 gm/dl (3.4-5.0); Alkaline Phosphatase 127 U/L (45-117); BUN Creatinine Ratio 16.2 (10-20); Bilirubin,Total 4.6 mg/dl (0.2-1); Blood Urea Nitrogen 11 mg/dl (7-18); Calcium 8.8 mg/dl (8.5-10.1); Carbon Dioxide 25 mmol/L (21-32); Chloride 99 mmol/L (98-107); Creatinine Clr Calc Pharmacy 109.6 ml/min; Est GFR (African American) 110.7 ml/min; Est GFR (Non-African American) 95.5 ml/min; Globulin 4.4 gm/dl (2.5-4.0); Glucose 127 mg/dl (70-99); Sodium 130 mmol/L (136-145); Troponin I < 0.015 ng/ml (0-0.045)
[2021-02-10] MEDS ORDERED: DOCUSATE SODIUM/SENNA 50/8.6MG TAB PO STA (20:53)
[2021-02-10 21:12] LABS: Basophils # (auto) 0.03 K/uL (0-0.2); Basophils % (auto) 0.3 %; Eosinophils # (auto) 0.21 K/uL (0-0.5); Eosinophils % (auto) 2.3 %; Hematocrit (blood only) 28.3 % (42-52); Hemoglobin 10.3 g/dL (14.0-18.0); Immature Granulocytes # (auto) 0.05 K/uL (0.00-0.02); Immature Granulocytes % (auto) 0.6 %; Lymphocytes # (auto) 1.98 K/uL (1.2-3.4); Mean Corpuscular Hemoglobin 38.7 pg (25-34); Mean Corpuscular Hgb Conc 36.4 g/dL (32-36); Mean Corpuscular Volume 106.4 fL (80-100); Mean Platelet Volume 9.6 fL (7.4-10.4); Monocytes # (auto) 1.48 K/uL (0.11-0.59); Monocytes % (auto) 16.4 %; Neutrophils # (auto) 5.27 K/uL (1.4-6.5); Neutrophils % (auto) 58.4 %; Platelet Count 106 K/uL (130-400); RDW Coefficient of Variation 15.1 % (11.5-14.5); Red Blood Count 2.66 M/uL (4.7-6.1); White Blood Count 9.02 K/uL (4.8-10.8)
[2021-02-10 21:28] LABS: Potassium 4.5 mmol/L (3.5-5.1)
[2021-02-10 21:37] LABS: Magnesium 1.9 mg/dl (1.8-2.4)
[2021-02-10] MEDS ORDERED: SODIUM CHLORIDE 0.9% 1000ML 500 ML IV ONE (21:40)
[2021-02-10 23:50] LABS: Appearance Urine Clear (Clear); Bilirubin Urine Negative (Negative); Blood Urine Negative (Negative); Color Urine Yellow; Glucose Urine UA Negative (Negative); Ketones Urine Negative (Negative); Leukocyte Esterase Urine Negative (Negative); Nitrite Urine Negative (Negative); Protein Urine Negative (Negative); Specific Gravity Urine 1.008 (1.000-1.030); Urobilinogen Urine Negative (Negative); pH Urine 7.5 (4.5-7.5)
[2021-02-11] MEDS ORDERED: D5W AND NSS 1,000 ML IV SCH (01:34)
[2021-02-11] MEDS ORDERED: bisacodyL 10 MG SUPP PR STA (01:34)
[2021-02-11] MEDS ORDERED: traZODone HCL 50 MG TAB PO PRN (01:34)
[2021-02-11] MEDS ORDERED: traMADol HCL 50 MG TABLET PO PRN (01:34)
[2021-02-11] MEDS ORDERED: POLYETHYLENE (MIRALAX) 17 GM PACK PO PRN (01:34)
[2021-02-11] MEDS ORDERED: LACTULOSE SYRUP 30 GM/45 ML UDP PO STA (01:34)
[2021-02-11] MEDS ORDERED: ONDANSETRON INJ 2 MG/ML 2 ML VIAL IV PRN (01:34)
[2021-02-11] MEDS ORDERED: PANTOprazole 40 MG TAB PO PRN (01:40)
--- NOTE | 2021-02-11 02:54 | History and Physical Report ---
DATE OF ADMISSION: 02/10/2021. CHIEF COMPLAINT: Constipation and ambulatory dysfunction. HISTORY OF PRESENT ILLNESS: A 71-year-old male with past medical history significant for liver cirrhosis, thought to be possibly from hematochromatosis, history of portal hypertension, thrombocytopenia. Lives at home with his , comes because of ambulatory dysfunction and constipation. The patient was in the ER on 02/06/2021 with a fall. He fell in his yard and found to have fracture of the proximal humerus, on sling, seen by orthopedics, managed as outpatient. There is a boone for rehab, but thought would try to stay at home. He is no longer using oxycodone, bon tramadol for pain, but today his was concerned because he was not able to ambulate properly and she called the ambulance. He has also some pain in the legs and he also was constipated. He says he did not move his bowels the last several days. Urinating okay. Denies any hematuria. No burning micturition. No fever, no chills, no chest pain, no shortness of breath, no abdominal pain, no nausea. Appetite is down the last few days. No headache, no blurred visions, no double visions, no earache, no runny nose, no sore throat. No cough. Currently, resting comfortably and hemodynamically stable. ALLERGIES: SULFA ANTIBIOTICS, MORPHINE. PAST MEDICAL HISTORY: As mentioned above. PAST SURGICAL HISTORY: Colonoscopy, EGD, EGD with endoscopic ultrasound, appendectomy. MEDICATIONS: The patient is on gabapentin 300 mg p.o. t.i.d., lisinopril 10 mg p.o. daily, magnesium oxide 400 mg p.o. daily, multivitamins one tablet p.o. daily, omeprazole 20 mg p.o. daily p.r.n., Zofran 4 mg p.o. q. 6 hours p.r.n., oxycodone 5 mg p.o. q. 4 hours p.r.n., spironolactone 25 mg p.o. daily, tramadol 50 mg p.o. q. 4 hours p.r.n., trazodone 25 mg p.o. at bedtime p.r.n. FAMILY HISTORY: Significant for mother has Alzheimer disease, father has heart disease, brother has heart disease. SOCIAL HISTORY: , no smoking, alcohol rare, no drug use. REVIEW OF SYSTEMS: As per HPI. Rest of review of systems is negative. PHYSICAL EXAMINATION: GENERAL: Patient is of moderate build, not in acute distress. VITAL SIGNS: Temperature 37.1, pulse 94, respiratory rate 16, blood pressure 112/72, oxygen 96% on room air. HEENT: Pupils equal, round, and reactive to light. Oral mucosa moist. NECK: No JVD, no neck masses. CARDIOVASCULAR: S1 and S2 heard. Regular rate and rhythm. No murmur, no gallop. RESPIRATORY SYSTEM: Normal AP diameter. No accessory muscle use. No wheezing, no crackles. ABDOMEN: Soft, bowel sounds present, nontender, no distention. CENTRAL NERVOUS SYSTEM: Cranial nerves II through XII are grossly intact, nonfocal. EXTREMITIES: No edema, no erythema. Left upper extremity is in sling. Some bruise seen in the left arm region. LABORATORY DATA: WBC 9, hemoglobin 10.3, hematocrit 28.3, platelets 106. Sodium 130, potassium 4.5, chloride 99, bicarbonate 25, BUN 11, creatinine 0.6, serum glucose 127, calcium 8.8, magnesium 1.9, total bilirubin 4.6, AST 69, ALT 67, alkaline phosphatase 127. Ammonia less than 10. Total creatinine kinase 96. Troponin I less than 0.015. TSH 2.6. Urinalysis pending. SARS-CoV-2 PCR negative. IMAGING DATA: KUB x-ray is showing moderate to large amount of well-formed stool seen throughout the colon. No evidence for bowel obstruction. Chest x- ray, no acute process in the chest. Redemonstration of the left humerus neck fracture. EKG: Normal sinus rhythm at a rate of 95, no acute ST changes seen. ASSESSMENT AND PLAN: This 71-year-old male presents with ambulatory dysfunction and constipation. 1. Ambulatory dysfunction recently had a fall and left humeral neck fracture, treated conservatively with a sling. Follow up with orthopedics. PT/OT. The patient may need placement. Observation in medical floor. 2. Constipation: Stool softeners. If stool softeners do not work, we will do enema. 3. 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 Follows with hem/onc and on spironolactone. 4. Thrombocytopenia. Mostly from liver cirrhosis. Will follow labs. 5. History of hypertension: On lisinopril. Will monitor the blood pressure. 6. Deep venous thrombosis prophylaxis: Sequential compression devices. The patient has thrombocytopenia. DISPOSITION: Observation in medical floor. PT/OT. Social service to help with discharge planning. The patient may need rehab placement. Level 1 full code. Job ID: [id number] MTDD
[2021-02-11 05:48] LABS: Basophils # (auto) 0.05 K/uL (0-0.2); Basophils % (auto) 0.6 %; Eosinophils # (auto) 0.22 K/uL (0-0.5); Eosinophils % (auto) 2.6 %; Hematocrit (blood only) 28.4 % (42-52); Hemoglobin 10.1 g/dL (14.0-18.0); Immature Granulocytes # (auto) 0.03 K/uL (0.00-0.02); Immature Granulocytes % (auto) 0.4 %; Lymphocytes # (auto) 2.14 K/uL (1.2-3.4); Mean Corpuscular Hemoglobin 38.1 pg (25-34); Mean Corpuscular Hgb Conc 35.6 g/dL (32-36); Mean Corpuscular Volume 107.2 fL (80-100); Mean Platelet Volume 9.5 fL (7.4-10.4); Monocytes # (auto) 1.47 K/uL (0.11-0.59); Monocytes % (auto) 17.2 %; Neutrophils # (auto) 4.65 K/uL (1.4-6.5); Neutrophils % (auto) 54.2 %; Platelet Count 100 K/uL (130-400); RDW Coefficient of Variation 15.4 % (11.5-14.5); RDW Standard Deviation 58.7 fL (36.4-46.3); Red Blood Count 2.65 M/uL (4.7-6.1); White Blood Count 8.56 K/uL (4.8-10.8)
[2021-02-11 06:40] LABS: Calcium 8.4 mg/dl (8.5-10.1); Creatinine Clr Calc Pharmacy 102.4 ml/min; Est GFR (African American) 108.2 ml/min; Est GFR (Non-African American) 93.3 ml/min; Magnesium 1.9 mg/dl (1.8-2.4); Potassium 4.1 mmol/L (3.5-5.1)
[2021-02-11] MEDS: GABAPENTIN 300 MG CAP PO SCH ×3 (08:55→19:37)
[2021-02-11] MEDS: SPIRONOLACTONE 25 MG TAB PO SCH (08:55)
[2021-02-11] MEDS: MAGNESIUM OXIDE 400 MG TAB PO SCH (08:55)
[2021-02-11] MEDS: MULTIVITAMIN TAB PO SCH (08:55)
[2021-02-11] MEDS: lisinopril 10 MG TAB PO SCH (08:55)
[2021-02-11] MEDS: LACTULOSE SYRUP 30 GM/45 ML UDP PO SCH (08:56)
--- NOTE | 2021-02-11 13:28 | Hospitalist Progress Note ---
Date of Service February 11, 2021 Assessment & Plan (1) Fracture of proximal humerus: Status post fall on third of this month with fracture of the proximal humerus Managed by Ortho and the left upper extremity is in a sling Complains to have some pain in the left shoulder with movement (2) Weakness: (3) Ambulatory dysfunction: Was admitted with weakness and ambulatory dysfunction Status post PT and OT evaluation Advised that the patient can be discharged home (4) Thrombocytopenia: Secondary to known cirrhosis Platelets 100 (5) Constipation: Came in with constipation likely due to pain medications Bowel movement today Advised to take a stool softener at home (6) History of cirrhosis: Liver functions are reasonable Ammonia level is normal INR is 1.4 (7) Hypertension: Well-controlled Likely discharge tomorrow Admission and Anticipated Discharge Date Admission Date: February 10, 2021 Subjective 02/11/2021 The patient was seen and examined in medical floor He is a status post fall with fracture of third left humerus on third of this month which is managed by orthopedic surgeon He was admitted early this morning with constipation and ambulatory dysfunction Denies any significant symptoms during my examination Review of Systems Review of Systems: All systems reviewed and are unremarkable except as noted below Musculoskeletal: + joint pain (Left shoulder pain with movement) Physical Exam Physical Exam: Sitting on a chair without any acute distress Constitutional: well developed, well nourished and + ill appearing Eyes: PERRL, conjunctivae normal, anicteric sclerae ENMT: external ear and nose normal, oropharynx normal Neck: trachea midline, no thyromegaly Respiratory: no respiratory distress Auscultation: lungs clear to auscultation bilaterally Cardiovascular: Rate/Rhythm: regular rate and regular rhythm Heart Sounds: no murmur Gastrointestinal (Abdomen): Inspection/Auscultation: normal bowel sounds; abdomen not distended Percussion/Palpation: abdomen soft; abdomen nontender Musculoskeletal: Shoulder: + shoulder abnormal to inspection (Left shoulder joint pain and left upper extremity is in sling) Neurologic: Alert, awake and oriented x3. No focal sensory or motor deficit appreciated Lymphatic: no cervical or axillary lymphadenopathy Results & Data Results & Data ([facility]) Vital Signs (Past 12 Hours) Vital Signs Temp Pulse Resp BP Pulse Ox 02/11/21 07:49 36.9 C 98 H 16 120/64 98 Laboratory Results Short CBC 02/10/21 02/10/21 02/11/21 Range/Units 19:36 21:02 05:19 WBC Cancelled 9.02 8.56 Hgb Cancelled 10.3 L 10.1 L Hct Cancelled 28.3 L 28.4 L Plt Count Cancelled 106 L 100 L BMP 02/10/21 02/10/21 02/11/21 19:36 21:02 05:19 Sodium 130 L 132 L Potassium 4.5 4.1 Chloride 99 101 Carbon Dioxide 25 26 BUN 11 12 Creatinine 0.69 0.73 Glucose 127 H 195 H Calcium 8.8 8.4 L Cardiac Enzymes 02/10/21 02/10/21 Range/Units 19:36 21:02 Total Creatine Kinase 96 (39-308) U/L Troponin I < 0.015 (0-0.045) ng/ml Liver Function 02/10/21 02/10/21 Range/Units 19:36 21:02 Total Bilirubin 4.6 H (0.2-1) mg/dl AST 69 H (15-37) U/L ALT 67 (12-78) U/L Alkaline Phosphatase 127 H (45-117) U/L Albumin 2.6 L (3.4-5.0) gm/dl Urine 02/10/21 Range/Units 23:25 Urine Color Yellow Urine Appearance Clear (Clear) Urine pH 7.5 (4.5-7.5) Ur Specific [place] 1.008 (1.000-1.030) Urine Protein Negative (Negative) Urine Glucose (UA) Negative (Negative) Medications Administered Current Inpatient Medications Gabapentin (Gabapentin 300 Mg Cap) 300 mg PO TID [facility] Stop: 03/13/21 08:59 Last Admin: 02/11/21 08:55 Dose: 300 mg Documented by: Dextrose/Sodium Chloride (D5w And Nss) 1,000 mls @ 80 mls/hr IV .[id number] [facility] Stop: 02/11/21 14:03 Last Admin: 02/11/21 02:05 Dose: 80 mls/hr Documented by: Lactulose (Lactulose Syrup 30 Gm/45 Ml Udp) 30 gm PO DAILY [facility] Stop: 03/13/21 08:59 Last Admin: 02/11/21 08:56 Dose: 30 gm Documented by: Lisinopril (Lisinopril 10 Mg Tab) 10 mg PO DAILY [facility] Stop: 03/13/21 08:59 Last Admin: 02/11/21 08:55 Dose: 10 mg Documented by: Magnesium Oxide (Magnesium Oxide 400 Mg Tab) 400 mg PO DAILY [facility] Stop: 03/13/21 08:59 Last Admin: 02/11/21 08:55 Dose: 400 mg Documented by: Multivitamins (Multivitamin Tab) 1 tab PO DAILY [facility] Stop: 03/13/21 08:59 Last Admin: 02/11/21 08:55 Dose: 1 tab Documented by: Ondansetron HCl (Ondansetron Inj 2 Mg/Ml 2 Ml Vial) 4 mg IV Q6H PRN PRN Reason: Nausea Stop: 03/13/21 01:33 Pantoprazole Sodium (Pantoprazole 40 Mg Tab) 40 mg PO DAILY PRN PRN Reason: HEARTBURN/INDIGESTION Stop: 03/13/21 01:39 Last Admin: 02/11/21 08:55 Dose: 40 mg Documented by: Polyethylene Glycol (Polyethylene (Miralax) 17 Gm Pack) 17 gm PO DAILY PRN PRN Reason: Constipation Stop: 03/13/21 01:33 Spironolactone (Spironolactone 25 Mg Tab) 25 mg PO DAILY [facility] Stop: 03/13/21 08:59 Last Admin: 02/11/21 08:55 Dose: 25 mg Documented by: Tramadol HCl (Tramadol Hcl 50 Mg Tablet) 50 mg PO Q4H PRN PRN Reason: pain Stop: 03/13/21 01:33 Last Admin: 02/11/21 08:55 Dose: 50 mg Documented by: Trazodone HCl (Trazodone Hcl 50 Mg Tab) 25 mg PO HS PRN PRN Reason: Sleep Stop: 03/13/21 01:33 (1) Fracture of proximal humerus Encounter type: subsequent encounter Fracture healing: with routine healing Fracture morphology: unspecified fracture morphology Fracture type: closed Laterality: left Qualified Code(s): S42.202D - Unspecified fracture of upper end of left humerus, subsequent encounter for fracture with routine healing
[2021-02-11] MEDS ORDERED: IBUPROFEN 600 MG TAB PO PRN (18:21)
[2021-02-11] MEDS ORDERED: diphenhydrAMINE Capsule 25 MG CAP PO PRN (18:21)
--- NOTE | 2021-02-11 22:57 | Electrocardiogram Report ---
Test Reason : Blood Pressure : / mmHG Vent. Rate : 095 BPM Atrial Rate : 095 BPM P-R Int : 138 ms QRS Dur : 104 ms QT Int : 358 ms P-R-T Axes : 047 -27 079 degrees QTc Int : 449 ms Normal sinus rhythm Septal infarct (cited on or before 10-FEB-2021) Abnormal ECG When compared with ECG of 09-JUL-2020 19:45, Questionable change in initial forces of Septal leads T wave amplitude has decreased in Anterior leads Confirmed by Stu Cervantes ([id number]) on 02/11/2021 10:57:23 PM Referred By: REFERRED SELF Confirmed By:Stu Cervantes
[2021-02-12 06:37] LABS: Hematocrit (blood only) 26.2 % (42-52); Hemoglobin 9.3 g/dL (14.0-18.0); Mean Corpuscular Hemoglobin 37.8 pg (25-34); Mean Corpuscular Hgb Conc 35.5 g/dL (32-36); Mean Corpuscular Volume 106.5 fL (80-100); RDW Coefficient of Variation 15.7 % (11.5-14.5); RDW Standard Deviation 60.5 fL (36.4-46.3); Red Blood Count 2.46 M/uL (4.7-6.1); White Blood Count 8.03 K/uL (4.8-10.8)
[2021-02-12 06:45] LABS: Mean Platelet Volume 9.3 fL (7.4-10.4); Platelet Count 97 K/uL (130-400)
[2021-02-12 06:54] LABS: Basophils # (auto) 0.01 K/uL (0-0.2); Basophils % (auto) 0.1 %; Eosinophils # (auto) 0.22 K/uL (0-0.5); Eosinophils % (auto) 2.7 %; Immature Granulocytes # (auto) 0.05 K/uL (0.00-0.02); Immature Granulocytes % (auto) 0.6 %; Lymphocytes # (auto) 2.44 K/uL (1.2-3.4); Lymphocytes % (auto) 30.4 %; Monocytes # (auto) 1.35 K/uL (0.11-0.59); Monocytes % (auto) 16.8 %; Neutrophils # (auto) 3.96 K/uL (1.4-6.5); Neutrophils % (auto) 49.4 %; Polychromasia 1+
[2021-02-12 07:20] LABS: Albumin Level 2.3 gm/dl (3.4-5.0); BUN Creatinine Ratio 19.5 (10-20); Calcium 8.2 mg/dl (8.5-10.1); Creatinine Clr Calc Pharmacy 85.9 ml/min; Est GFR (African American) 100.6 ml/min; Est GFR (Non-African American) 86.8 ml/min; Magnesium 2.1 mg/dl (1.8-2.4); Potassium 4.4 mmol/L (3.5-5.1)
[2021-02-12 07:26] LABS: Albumin Globulin Ratio 0.6 (0.9-2); Globulin 3.8 gm/dl (2.5-4.0); Phosphorus 3.2 mg/dl (2.5-4.9); Total Protein 6.1 gm/dl (6.4-8.2)
[2021-02-12] MEDS: LACTULOSE SYRUP 30 GM/45 ML UDP PO SCH (08:59)
[2021-02-12] MEDS: GABAPENTIN 300 MG CAP PO SCH (09:00)
[2021-02-12] MEDS: lisinopril 10 MG TAB PO SCH (09:00)
[2021-02-12] MEDS: MAGNESIUM OXIDE 400 MG TAB PO SCH (09:00)
[2021-02-12] MEDS: MULTIVITAMIN TAB PO SCH (09:00)
[2021-02-12] MEDS: SPIRONOLACTONE 25 MG TAB PO SCH (09:00)
--- NOTE | 2021-02-12 12:51 | Hospitalist Progress Note ---
Date of Service February 12, 2021 Assessment & Plan (1) Fracture of proximal humerus: Status post fall on third of this month with fracture of the proximal humerus Managed by Ortho and the left upper extremity is in a sling Complains to have some pain in the left shoulder with movement The pain is reasonably controlled with oral Ultram He was warned against the side effect of Ultram (2) Weakness: (3) Ambulatory dysfunction: Was admitted with weakness and ambulatory dysfunction Status post PT and OT evaluation Advised that the patient can be discharged home Ready to be discharged this afternoon (4) Thrombocytopenia: Secondary to known cirrhosis Platelets 100 (5) Constipation: Came in with constipation likely due to pain medications Bowel movement today Advised to take a stool softener at home He is agreeable to use more vegetables and stool softener at home (6) History of cirrhosis: Liver functions are reasonable Ammonia level is normal INR is 1.4 (7) Hypertension: Well-controlled Discharge home this afternoon Admission and Anticipated Discharge Date Admission Date: February 10, 2021 Subjective 02/11/2021 The patient was seen and examined in medical floor He is a status post fall with fracture of third left humerus on third of this month which is managed by orthopedic surgeon He was admitted early this morning with constipation and ambulatory dysfunction Denies any significant symptoms during my examination 02/12/2021 The patient was seen and examined in medical floor His pain seems to be under reasonably controlled with Ultram He has been ambulating in the room without any problem and he has had physical therapy evaluation Denies any other symptoms Review of Systems Review of Systems: All systems reviewed and are unremarkable except as noted below Musculoskeletal: + joint pain (Left shoulder pain with movement) Physical Exam Physical Exam: Lying in bed without any acute distress Constitutional: well developed, well nourished and + ill appearing Eyes: PERRL, conjunctivae normal, anicteric sclerae ENMT: external ear and nose normal, oropharynx normal Neck: trachea midline, no thyromegaly Respiratory: no respiratory distress Auscultation: lungs clear to auscultation bilaterally Cardiovascular: Rate/Rhythm: regular rate and regular rhythm Heart Sounds: no murmur Gastrointestinal (Abdomen): Inspection/Auscultation: normal bowel sounds; abdomen not distended Percussion/Palpation: abdomen soft; abdomen nontender Musculoskeletal: Shoulder: + shoulder abnormal to inspection (Left shoulder joint pain and left upper extremity is in sling) Neurologic: Alert, awake and oriented x3 Lymphatic: no cervical or axillary lymphadenopathy Results & Data Results & Data ([facility]) Vital Signs (Past 12 Hours) Vital Signs Temp Pulse Resp BP Pulse Ox 02/12/21 07:40 36.9 C 83 18 106/64 95 Laboratory Results Short CBC 02/12/21 Range/Units 06:13 WBC 8.03 (4.8-10.8) K/uL Hgb 9.3 L (14.0-18.0) g/dL Hct 26.2 L (42-52) % Plt Count 97 L (130-400) K/uL BMP 02/12/21 06:13 Sodium 130 L Potassium 4.4 Chloride 101 Carbon Dioxide 24 BUN 17 Creatinine 0.87 Glucose 180 H Calcium 8.2 L Liver Function 02/12/21 Range/Units 06:13 Total Bilirubin 5.0 H (0.2-1) mg/dl AST 57 H (15-37) U/L ALT 53 (12-78) U/L Alkaline Phosphatase 99 (45-117) U/L Albumin 2.3 L (3.4-5.0) gm/dl Medications Administered Current Inpatient Medications Diphenhydramine HCl (Diphenhydramine Capsule 25 Mg Cap) 25 mg PO Q8H PRN PRN Reason: Itching Stop: 03/13/21 18:20 Last Admin: 02/11/21 19:37 Dose: 25 mg Documented by: Gabapentin (Gabapentin 300 Mg Cap) 300 mg PO TID [facility] Stop: 03/13/21 08:59 Last Admin: 02/12/21 09:00 Dose: 300 mg Documented by: Ibuprofen (Ibuprofen 600 Mg Tab) 600 mg PO Q8H PRN PRN Reason: Pain Stop: 03/13/21 18:20 Last Admin: 02/11/21 19:37 Dose: 600 mg Documented by: Lactulose (Lactulose Syrup 30 Gm/45 Ml Udp) 30 gm PO DAILY [facility] Stop: 03/13/21 08:59 Last Admin: 02/12/21 08:59 Dose: Not Given Documented by: Lisinopril (Lisinopril 10 Mg Tab) 10 mg PO DAILY [facility] Stop: 03/13/21 08:59 Last Admin: 02/12/21 09:00 Dose: 10 mg Documented by: Magnesium Oxide (Magnesium Oxide 400 Mg Tab) 400 mg PO DAILY [facility] Stop: 03/13/21 08:59 Last Admin: 02/12/21 09:00 Dose: 400 mg Documented by: Multivitamins (Multivitamin Tab) 1 tab PO DAILY [facility] Stop: 03/13/21 08:59 Last Admin: 02/12/21 09:00 Dose: 1 tab Documented by: Ondansetron HCl (Ondansetron Inj 2 Mg/Ml 2 Ml Vial) 4 mg IV Q6H PRN PRN Reason: Nausea Stop: 03/13/21 01:33 Pantoprazole Sodium (Pantoprazole 40 Mg Tab) 40 mg PO DAILY PRN PRN Reason: HEARTBURN/INDIGESTION Stop: 03/13/21 01:39 Last Admin: 02/11/21 08:55 Dose: 40 mg Documented by: Polyethylene Glycol (Polyethylene (Miralax) 17 Gm Pack) 17 gm PO DAILY PRN PRN Reason: Constipation Stop: 03/13/21 01:33 Spironolactone (Spironolactone 25 Mg Tab) 25 mg PO DAILY [facility] Stop: 03/13/21 08:59 Last Admin: 02/12/21 09:00 Dose: 25 mg Documented by: Tramadol HCl (Tramadol Hcl 50 Mg Tablet) 50 mg PO Q4H PRN PRN Reason: pain Stop: 03/13/21 01:33 Last Admin: 02/11/21 08:55 Dose: 50 mg Documented by: Trazodone HCl (Trazodone Hcl 50 Mg Tab) 25 mg PO HS PRN PRN Reason: Sleep Stop: 03/13/21 01:33 (1) Fracture of proximal humerus Encounter type: subsequent encounter Fracture healing: with routine healing Fracture morphology: unspecified fracture morphology Fracture type: closed L aterality: left Qualified Code(s): S42.202D - Unspecified fracture of upper end of left humerus, subsequent encounter for fracture with routine healing
--- NOTE | 2021-02-13 08:46 | Discharge Summary ---
Date of Service February 13, 2021 Admission HPI Per Admitting Provider DICTATED BY: Sal Rose MD DATE OF ADMISSION: 02/10/2021. CHIEF COMPLAINT: Constipation and ambulatory dysfunction. HISTORY OF PRESENT ILLNESS: A 71-year-old male with past medical history significant for liver cirrhosis, thought to be possibly from hematochromatosis, history of portal hypertension, thrombocytopenia. Lives at home with his , comes because of ambulatory dysfunction and constipation. The patient was in the ER on 02/06/2021 with a fall. He fell in his yard and found to have fracture of the proximal humerus, on sling, seen by orthopedics, managed as outpatient. There is a boone for rehab, but thought would try to stay at home. He is no longer using oxycodone, bon tramadol for pain, but today his was concerned because he was not able to ambulate properly and she called the ambulance. He has also some pain in the legs and he also was constipated. He says he did not move his bowels the last several days. Urinating okay. Denies any hematuria. No burning micturition. No fever, no chills, no chest pain, no shortness of breath, no abdominal pain, no nausea. Appetite is down the last few days. No headache, no blurred visions, no double visions, no earache, no runny nose, no sore throat. No cough. Currently, resting comfortably and hemodynamically stable. Admission Exam Per Admitting Provider GENERAL: Patient is of moderate build, not in acute distress. VITAL SIGNS: Temperature 37.1, pulse 94, respiratory rate 16, blood pressure 112/72, oxygen 96% on room air. HEENT: Pupils equal, round, and reactive to light. Oral mucosa moist. NECK: No JVD, no neck masses. CARDIOVASCULAR: S1 and S2 heard. Regular rate and rhythm. No murmur, no gallop. RESPIRATORY SYSTEM: Normal AP diameter. No accessory muscle use. No wheezing, no crackles. ABDOMEN: Soft, bowel sounds present, nontender, no distention. CENTRAL NERVOUS SYSTEM: Cranial nerves II through XII are grossly intact, nonfocal. EXTREMITIES: No edema, no erythema. Left upper extremity is in sling. Some bruise seen in the left arm region. Principal Diagnosis Fracture of left proximal humerus status post fall on 02/06/2021, ambulatory dysfunction, hypertension, thrombocytopenia with history of cirrhosis Discharge Exam Constitutional well developed, well nourished and + ill appearing Eyes PERRL, conjunctivae normal, anicteric sclerae ENMT external ear and nose normal, oropharynx normal Neck trachea midline, no thyromegaly Respiratory no respiratory distress Auscultation: lungs clear to auscultation bilaterally Cardiovascular Rate/Rhythm: regular rate and regular rhythm Heart Sounds: no murmur Gastrointestinal (Abdomen) Inspection/Auscultation: normal bowel sounds; abdomen not distended Percussion/Palpation: abdomen soft; abdomen nontender Musculoskeletal Shoulder: + shoulder abnormal to inspection (Left shoulder joint pain and left upper extremity is in sling) Lymphatic no cervical or axillary lymphadenopathy Discharge Data Allergies Allergy/AdvReac Type Severity Reaction Status Date / Time Sulfa (Sulfonamide Allergy Mild Rash Verified 02/10/21 22:40 Antibiotics) morphine AdvReac Intermediate crazy Verified 02/10/21 22:41 Consultations 02/10/21 22:24 ED Decision to Admit Stat Hospital Course (1) Fracture of proximal humerus: Status post fall on third of this month with fracture of the proximal humerus Managed by Ortho and the left upper extremity is in a sling Complains to have some pain in the left shoulder with movement The pain is reasonably controlled with oral Ultram He was warned against the side effect of Ultram (2) Weakness: (3) Ambulatory dysfunction: Was admitted with weakness and ambulatory dysfunction Status post PT and OT evaluation Advised that the patient can be discharged home Ready to be discharged this afternoon (4) Thrombocytopenia: Secondary to known cirrhosis Platelets 100 (5) Constipation: Came in with constipation likely due to pain medications Bowel movement today Advised to take a stool softener at home He is agreeable to use more vegetables and stool softener at home (6) History of cirrhosis: Liver functions are reasonable Ammonia level is normal INR is 1.4 (7) Hypertension: Well-controlled Discharge home this afternoon Total Time Total Time Spent Total Time Spent (In Minutes): 35 minutes Total Time Includes: Examination of the Patient, Discharge Planning, Medication Reconciliation and Communication With Other Providers Discharge Plan Discharge Items Patient Disposition: Home - Home Health Services Reason For Visit: AMBULATORY DYSFUNCTION, CONSTIPATION Discharge Diagnosis: Fracture of left proximal humerus status post fall on 02/06/2021, ambulatory dysfunction, hypertension, thrombocytopenia with history of cirrhosis Condition on Discharge: Fair Activity: Resume your previous activity Non-emergency contact: Primary Care Provider Call non-emergency contact if: you have any medication questions and your symptoms worsen Follow-up/Referrals: Rosana Bhagat, [Primary Care Provider] - 02/17/21 11:00 am (Your appointment with Dr. Bhagat on 02/17/2021 at 11 AM at [place]) Diet: Regular and Low Sodium (2gm) Addtl Attending Provider Instructions: Please take precaution to avoid falls Take your narcotics pain medications wisely to avoid side effect as advised Try to drink more fluid and take plenty of vegetables to avoid constipation Use stool softener as needed Pending Studies at Discharge: No Stand-Alone Forms: My [facility], Opioid Pain Management, Smoking Cessation Medications and DC Order Prescriptions: Continued multivitamin [Multiple Vitamins] Tablet 1 tab PO DAILY RF: 0 ondansetron 4 mg tablet,disintegrating 4 mg PO Q6H PRN (Reason: Nausea) RF: 0 tramadol 50 mg tablet 50 mg PO Q4H PRN (Reason: pain) Qty: 20 RF: 0 oxycodone 5 mg tablet 5 mg PO Q4H Qty: 15 RF: 0 trazodone 50 mg Tablet 25 mg PO HS PRN (Reason: Sleep) RF: 0 spironolactone 25 mg tablet 25 mg PO DAILY RF: 0 lisinopril 10 mg tablet 10 mg PO DAILY RF: 0 gabapentin 300 mg capsule 300 mg PO TID RF: 0 omeprazole 20 mg Tablet,Delayed Release (Dr/Ec) 20 mg PO DAILY PRN (Reason: HEARTBURN/INDIGESTION) RF: 0 magnesium oxide 400 mg magnesium Tablet 400 mg PO DAILY RF: 0 Discharge Orders: Discharge Order (Routine); Ordered 02/12/21 Ordered By: Randall Vargas/Other Patient Handouts: Preventing Deep Vein Thrombosis Admission Data Admit Date/Time: 02/10/21 23:21 Attending Provider: Randall Hilario Admit Provider: Sal Rose Primary Care Provider: Rosana Bhagat Other Providers: Sal Rose ; [facility] Other Interventions: Discharge Summary Assessment (RN) Last Done: 02/12/21 13:03
== END 2021-02-12 15:43 | disposition home health service (06) ==
LOC: ED 18:32 → 3W 18:32

== ENCOUNTER 2021-08-31 08:50 | Inpatient (IN) ==
--- NOTE | 2021-08-31 09:01 | Emergency Department Note ---
Impression & Plan Fall, History of cirrhosis, Closed fracture of left hip, Total bilirubin, elevated ED Provider Note Provider: Juni Linares MD DATE OF SERVICE: 08/31/2021 CHIEF COMPLAINT: Follow-up HISTORY OF PRESENT ILLNESS: Patient is a 71-year-old gentleman history of anemia, hypertension, left humeral fracture, and cirrhosis/liver cancer plan to have interventional bradycardia procedure this past Monday not currently in a coagulation presenting here today after a fall. Patient states he was getting in his car after driving to work and slipped on small ledge in the parking lot falling onto his back. No striking his head or loss of conscious. Denies any headache, dizziness, visual change, neck pain, or new numbness or weakness. States he has some issues with some baseline unsteadiness and neuropathy and this is unchanged. He is recovering from a left humeral fracture and still has some limitations of movement with this. Denies any difficulty breathing or chest pain. Denies abdominal pain or again nausea or vomiting. Patient complains of pain lower back as well as pain predominantly left hip. Has some chronic edema in the lower extremities which is somewhat painful as well but is tempered by his neuropathy. Patient states after the fall he is unable to get up and had significant pain in his back left hip and EMS was summoned to bring him here for further evaluation. No pain medicines prior to arrival. REVIEW OF SYSTEMS: A total of 10 review of systems was obtained and negative except as stated above in the HPI. PAST MEDICAL HISTORY: As noted above MEDICATIONS: Reviewed home medication list SOCIAL HISTORY: Lives at home with PHYSICAL EXAM: GENERAL: alert and oriented in no acute distress on stretcher Head: normocephalic and atraumatic EYES: No injection, discharge or icterus. PERRL NECK: Trachea midline. Supple no significant posterior midline tenderness. ENT: Mucous membranes pink and moist. LUNGS: Airway patent. No retractions. Breath sounds clear with good air entry bilaterally. HEART: Regular rate and rhythm. No chest wall tenderness ABDOMEN: Soft and non-tender, without guarding or rebound. BACK: No bilateral flank tenderness. SKIN: Acyanotic, warm, dry, without rashes EXTREMITIES: 2+ lower extremity edema which patient reports is chronic mildly tender. Patient with significant pain with any ROM of the left hip and thigh region. Somewhat shortened and externally rotated left lower leg. No significant tenderness of the left ankle joint, foot, or lower leg. Patient able to range with some pain in the low back the right lower extremity. Some slight tenderness of the left upper arm but no significant new focal bony tenderness otherwise noted. NEUROLOGICAL: No aphasia. No facial droop or slurred speech. Patient with per his report some baseline stable mild neuropathy in the lower extremities. Feels gross touch at the knees bilaterally. EK bpm sinus tachycardia. No PVC or PAC. No acute ST segment elevation. QTc 487. Left axis. Some LVH is noted. CONTINUOUS CARDIAC MONITORING: was ordered and showed a heart rate of 90s-100s bpm in normal sinus rhythm and sinus tachycardia PDMP was checked without noted issue. GCS 15. Patient's laboratory studies and imaging reviewed. Differential includes Fracture, dislocation, contusion, intra-abdominal, pneumothorax, intrathoracic, intracranial, neurologic, compartment syndrome, rhabdomyolysis, as well as other pathologies. IMPRESSION/MEDICAL DECISION MAKING: Patient after fall today likely combination of the snowy icy weather as well as his neuropathy and edema because of the fall. Patient emphatic did not strike his head or lose consciousness. Not on high risk anticoagulants or antiplatelets. No significant neck tenderness. No new neurological deficit again some baseline neuropathy. Significant pain in the left hip and some of the back. Question possible hip fracture. X-rays obtained. Per radiology reports, Blood work shows an INR of 1.9 and again the patient is not on active anticoagulation. Given this in the fall CT of the head was completed to exclude acute cranial abnormality. Underlying liver dysfunction and bilirubin at 9.5 to day. Has been trending up record review from the [facility] medical record of prior labs with a bilirubin of 7.8 on August 20. Has had recent cardiology visit from August 20 as well. Again not having active abdominal issues at this time but may complicate care and operative management. CT of the head and lumbar spine given the fall were completed and per radiology reports question of a possible lumbar compression fracture. No other intracranial abnormality noted. Updated the patient and put on as needed fentanyl to try to begin to control his pain. Difficulty with his liver dysfunction for to many adjuncts at this point. Patient updated on findings. Discussed with orthopedics here Dr. Meza. Will evaluate and no OR plan for today. Hospitalist team contacted for admission. DIAGNOSIS: Fall, left hip fracture, liver cirrhosis, elevated bilirubin DISPOSITION: Hospitalist will evaluate Patient was agreeable with this plan. Past Med/Surg History Medical History Abnormal LFTs Adhesive capsulitis of left shoulder Anemia Cirrhosis of liver with ascites Edema, peripheral Fracture of proximal humerus Hepatocellular carcinoma Peripheral neuropathy Thrombocytopenia Surgical History Hx of appendectomy Family History Other Asthma Diabetes Social History Smoking Status: Never smoker Second Hand Exposure: Yes ( is a smoker); Hx Alcohol Use: No Hx Substance Use: No Preferred Language: [place] Communication Ability: Effective Visual Impairment: Partially Limited Hearing Ability: Normal [employer] Required: No Beliefs That Will Affect Care: None Current Living Situation: Spouse Feels Safe at Home: Yes Assistive Devices: Glasses Allergies Allergies Allergy/AdvReac Type Severity Reaction Status Date / Time Sulfa (Sulfonamide Allergy Mild Rash Verified 08/31/21 12:02 Antibiotics) morphine AdvReac Intermediate crazy Verified 08/31/21 12:02 Home Meds Home Medications Medication Instructions Recorded Confirmed spironolactone 25 mg tablet 25 mg PO QAM 02/05/21 08/31/21 trazodone 50 mg tablet 25 mg PO HS PRN 02/05/21 08/31/21 escitalopram oxalate 5 mg tablet 5 mg PO QAM 08/31/21 08/31/21 furosemide 40 mg tablet 40 mg PO BID 08/31/21 08/31/21 gabapentin 400 mg capsule 400 mg PO TID 08/31/21 08/31/21 oxycodone 5 mg tablet 5 mg PO Q4H PRN 08/31/21 08/31/21 potassium chloride 10 mEq 10 meq PO QAM 08/31/21 08/31/21 tablet,extended release(part/cryst) pregabalin 75 mg capsule (Lyrica) 75 mg PO BID 08/31/21 08/31/21 Results & Data (ED) Vital Signs Vital Signs - 24 hr 08/31/21 08:51 08/31/21 08:58 08/31/21 10:46 Temperature 36.7 C Temperature Source Oral Pulse Rate 108 H Pulse Rate [Apical] 108 H 107 H Respiratory Rate 20 16 Respiratory Depth Respiratory Pattern Regular Blood Pressure 102/75 Blood Pressure [Right Arm] 130/84 Blood Pressure Mean 84 Blood Pressure Mean [Right Arm] 99 Pulse Oximetry 95 92 Oxygen Delivery Method Room Air Room Air Room Air Sepsis Recent Fever Within 48 Hours No Sepsis New/Unexplained Change in Mental Status No Sepsis Action Taken by Nursing No Action Required 08/31/21 12:00 08/31/21 14:00 08/31/21 16:00 Temperature Temperature Source Pulse Rate Pulse Rate [Apical] 108 H 108 H Respiratory Rate 16 20 Respiratory Depth Normal Respiratory Pattern Blood Pressure Blood Pressure [Right Arm] 107/70 112/69 Blood Pressure Mean Blood Pressure Mean [Right Arm] 82 83 Pulse Oximetry 94 93 Oxygen Delivery Method Room Air Room Air Room Air Sepsis Recent Fever Within 48 Hours Sepsis New/Unexplained Change in Mental Status Sepsis Action Taken by Nursing Laboratory Data Result diagrams: 08/31/21 09:44 08/31/21 09:28 Lab Results 08/31/21 08/31/21 08/31/21 Range/Units 09:28 09:28 09:44 WBC Cancelled RBC Cancelled Hgb Cancelled Hct Cancelled MCV Cancelled MCH Cancelled MCHC Cancelled RDW Std Deviation Cancelled RDW Coeff of Juanjose Cancelled Plt Count Cancelled MPV Cancelled Immature Gran % (Auto) Cancelled Neut % (Auto) Cancelled Lymph % (Auto) Cancelled [place] % (Auto) Cancelled Eos % (Auto) Cancelled Baso % (Auto) Cancelled Neut # (Auto) Cancelled Lymph # (Auto) Cancelled [place] # (Auto) Cancelled Eos # (Auto) Cancelled Baso # (Auto) Cancelled Immature Gran # (Auto) Cancelled Absolute Nucleated RBC Cancelled Nucleated RBC % (auto) Cancelled Neutrophils % (Manual) Cancelled Band Neutrophils % Cancelled Lymphocytes % (Manual) Cancelled Prolymphocyte % Cancelled Reactive Lymphs % (Man) Cancelled Monocytes % (Manual) Cancelled Eosinophils % (Manual) Cancelled Basophils % (Manual) Cancelled Metamyelocytes % (Man) Cancelled Myelocytes % (Man) Cancelled Promyelocytes % (Man) Cancelled Blast Cells % (Manual) Cancelled Plasma Cell % (Manual) Cancelled Other Cells % Cancelled Nucleated RBC % Cancelled Neutrophils # (Manual) Cancelled Band Neutrophils # Cancelled Total Absolute Neuts Cancelled Lymphocytes # (Manual) Cancelled Prolymphocyte # Cancelled Reactive Lymphs # Cancelled Total Abs Lymphocytes Cancelled Monocytes # (Manual) Cancelled Eosinophils # (Manual) Cancelled Basophils # (Manual) Cancelled Metamyelocytes # (Man) Cancelled Myelocytes # (Manual) Cancelled Promyelocytes # (Man) Cancelled Blast Cells # (Man) Cancelled Plasma Cell # (Manual) Cancelled Other Cells # Cancelled Nucleated RBCs # (Man) Cancelled Hypersegmented Neuts Cancelled Hyposegmented Neuts Cancelled Hypogranular Neuts Cancelled Large Granular Lymphs Cancelled # Lrg Granular Lymphs Cancelled Hairy Cells Cancelled Smudge Cells Cancelled Toxic Granulation Cancelled Toxic Vacuolation Cancelled Dohle Bodies Cancelled Frannie Rods Cancelled Platelet Estimate Cancelled Hypogranular Platelets Cancelled Clumped Platelets Cancelled Giant Platelets Cancelled Platelet Satelliting Cancelled RBC Morphology Cancelled Polychromasia Cancelled Hypochromasia Cancelled Poikilocytosis Cancelled Basophilic Stippling Cancelled Anisocytosis Cancelled Microcytosis Cancelled Macrocytosis Cancelled Spherocytes Cancelled Pappenheimer Bodies Cancelled Sickle Cells Cancelled Target Cells Cancelled Tear Drop Cells Cancelled Ovalocytes Cancelled Stomatocytes Cancelled [place] Bodies Cancelled Echinocytes Cancelled Acanthocytes (Spur) Cancelled Rouleaux Cancelled RBC Agglutinates Cancelled Schistocytes Cancelled RBC Morph Comment Cancelled Sezary Cell Cancelled PT 18.3 H (9.0-12.0) Seconds INR 1.9 H (0.9-1.1) APTT 37.6 H (21.0-31.0) Seconds PTT Ratio 1.4 Sodium 131 L (136-145) mmol/L Potassium 3.5 (3.5-5.1) mmol/L Chloride 92 L (98-107) mmol/L Carbon Dioxide 30 (21-32) mmol/L Anion Gap 9 (3-11) BUN 5 L (6-23) mg/dl Creatinine 0.78 (0.6-1.4) mg/dl Est Cr Clr Drug Dosing Not Reportable Est GFR ( Amer) 105.3 ml/min Est GFR (Non-Af Amer) 90.8 ml/min BUN/Creatinine Ratio 6.4 L (10-20) Glucose 180 H (70-99(Fasting)) mg/dl Calcium 8.1 L (8.5-10.1) mg/dl Total Bilirubin 9.5 H (0.2-1.0) mg/dl AST 57 H (13-39) U/L ALT 33 (7-52) U/L Alkaline Phosphatase 173 H (34-104) U/L Total Protein 7.4 (6.0-8.3) gm/dl Albumin 2.7 L (3.4-5.0) gm/dl Globulin 4.7 H (2.5-4.0) gm/dl Albumin/Globulin Ratio 0.6 L (0.9-2) Urine Color Urine Appearance (Clear) Urine pH (4.5-7.5) Ur Specific [place] (1.000-1.030) Urine Protein (Negative) Urine Glucose (UA) (Negative) Urine Ketones (Negative) Urine Blood (Negative) Urine Nitrite (Negative) Urine Bilirubin (Negative) Urine Urobilinogen (Negative) Ur Leukocyte Esterase (Negative) Urine WBC (Auto) (0-5) /hpf Urine RBC (Auto) (0-4) /hpf U Hyaline Cast (Auto) (0-5) /lpf U Epithel Cells (Auto) (0-5) /lpf Urine Bacteria (Auto) (Negative) SARS-CoV-2, RNA, NAAT (NEGATIVE) 08/31/21 08/31/21 08/31/21 Range/Units 09:44 09:55 Unknown WBC 7.48 RBC 3.40 L Hgb 13.4 L Hct 37.6 L MCV 110.6 H MCH 39.4 H MCHC 35.6 RDW Std Deviation 58.0 H RDW Coeff of Juanjose 14.4 Plt Count 86 L MPV 11.2 H Immature Gran % (Auto) 1.2 Neut % (Auto) 75.5 Lymph % (Auto) 11.0 [place] % (Auto) 11.0 Eos % (Auto) 0.9 Baso % (Auto) 0.4 Neut # (Auto) 5.65 Lymph # (Auto) 0.82 L [place] # (Auto) 0.82 H Eos # (Auto) 0.07 Baso # (Auto) 0.03 Immature Gran # (Auto) 0.09 H Absolute Nucleated RBC 0.04 H Nucleated RBC % (auto) 0.5 Neutrophils % (Manual) Band Neutrophils % Lymphocytes % (Manual) Prolymphocyte % Reactive Lymphs % (Man) Monocytes % (Manual) Eosinophils % (Manual) Basophils % (Manual) Metamyelocytes % (Man) Myelocytes % (Man) Promyelocytes % (Man) Blast Cells % (Manual) Plasma Cell % (Manual) Other Cells % Nucleated RBC % Neutrophils # (Manual) Band Neutrophils # Total Absolute Neuts Lymphocytes # (Manual) Prolymphocyte # Reactive Lymphs # Total Abs Lymphocytes Monocytes # (Manual) Eosinophils # (Manual) Basophils # (Manual) Metamyelocytes # (Man) Myelocytes # (Manual) Promyelocytes # (Man) Blast Cells # (Man) Plasma Cell # (Manual) Other Cells # Nucleated RBCs # (Man) Hypersegmented Neuts Hyposegmented Neuts Hypogranular Neuts Large Granular Lymphs # Lrg Granular Lymphs Hairy Cells Smudge Cells Toxic Granulation Toxic Vacuolation Dohle Bodies Frannie Rods Platelet Estimate Decreased L Hypogranular Platelets Clumped Platelets Giant Platelets Platelet Satelliting RBC Morphology Polychromasia Hypochromasia Poikilocytosis Basophilic Stippling Anisocytosis Microcytosis Macrocytosis Present Spherocytes Pappenheimer Bodies Sickle Cells Target Cells Tear Drop Cells Ovalocytes Stomatocytes [place] Bodies Echinocytes Acanthocytes (Spur) Rouleaux RBC Agglutinates Schistocytes RBC Morph Comment Sezary Cell PT (9.0-12.0) Seconds INR (0.9-1.1) APTT (21.0-31.0) Seconds PTT Ratio Sodium (136-145) mmol/L Potassium (3.5-5.1) mmol/L Chloride (98-107) mmol/L Carbon Dioxide (21-32) mmol/L Anion Gap (3-11) BUN (6-23) mg/dl Creatinine (0.6-1.4) mg/dl Est Cr Clr Drug Dosing Est GFR ( Amer) ml/min Est GFR (Non-Af Amer) ml/min BUN/Creatinine Ratio (10-20) Glucose (70-99(Fasting)) mg/dl Calcium (8.5-10.1) mg/dl Total Bilirubin (0.2-1.0) mg/dl AST (13-39) U/L ALT (7-52) U/L Alkaline Phosphatase (34-104) U/L Total Protein (6.0-8.3) gm/dl Albumin (3.4-5.0) gm/dl Globulin (2.5-4.0) gm/dl Albumin/Globulin Ratio (0.9-2) Urine Color Yellow Urine Appearance Clear (Clear) Urine pH 7.5 (4.5-7.5) Ur Specific [place] 1.006 (1.000-1.030) Urine Protein Negative (Negative) Urine Glucose (UA) Negative (Negative) Urine Ketones Negative (Negative) Urine Blood 2+ H (Negative) Urine Nitrite Negative (Negative) Urine Bilirubin Negative (Negative) Urine Urobilinogen Negative (Negative) Ur Leukocyte Esterase Negative (Negative) Urine WBC (Auto) 1-5 (0-5) /hpf Urine RBC (Auto) 10-30 H (0-4) /hpf U Hyaline Cast (Auto) 1-5 (0-5) /lpf U Epithel Cells (Auto) 0-5 (0-5) /lpf Urine Bacteria (Auto) Negative (Negative) SARS-CoV-2, RNA, NAAT NEGATIVE (NEGATIVE) Administered Medications Fentanyl Citrate (Fentanyl Citrate 100 Mcg/2 Ml Vial) 25 mcg IV Q20M PRN PRN Reason: Pain Stop: 09/14/21 11:13 Last Admin: 08/31/21 15:45 Dose: 25 mcg Documented by: [id number] Admin: 08/31/21 12:59 Dose: 25 mcg Documented by: [id number] Discontinued Medications Fentanyl Citrate (Fentanyl Citrate 100 Mcg/2 Ml Vial) 25 mcg IV NOW STA Stop: 08/31/21 09:03 Last Admin: 08/31/21 09:51 Dose: 25 mcg Documented by: [id number] Fentanyl Citrate (Fentanyl Citrate 100 Mcg/2 Ml Vial) 25 mcg IV NOW STA Stop: 08/31/21 10:37 Last Admin: 08/31/21 10:43 Dose: 25 mcg Documented by: [id number] Phytonadione 10 mg/ Sodium (Chloride) 51 mls @ 102 mls/hr IV 1515 ONE Stop: 08/31/21 15:44 Last Admin: 08/31/21 15:50 Dose: 102 mls/hr Documented by: [id number] Imaging Data Radiologist's Impression: Chest X-Ray 08/31/21 08:58 XR chest 1V portable CLINICAL HISTORY: fall TECHNIQUE: Single frontal radiograph of the chest was obtained. Comparison: Comparison is made to chest one view 02/10/2021 FINDINGS: No lines and tubes are seen. The cardiomediastinal silhouette is stable. The lungs are clear. No evidence of pleural effusion or pneumothorax. IMPRESSION: No acute chest disease. ACT 112: Negative or not required by law. Electronically signed by: Jeremiah Barrera M.D. 08/31/2021 10:40 AM Femur X-Ray 08/31/21 08:58 XR pelvis 1-2V routine, XR femur LT 2V routine CLINICAL HISTORY: fall, pain TECHNIQUE: A single frontal view of the pelvis was obtained. 2 views of the left femur were obtained. Comparison: None available at the time of this dictation. FINDINGS: There is a fracture of the left femoral neck with mild impaction and angulation. The bones are anatomically aligned. Mild degenerative changes are seen. Soft tissue swelling is seen in the left hip. IMPRESSION: Acute fracture of the left femoral neck. ACT 112: Negative or not required by law. Electronically signed by: Jeremiah Barrera M.D. 08/31/2021 10:42 AM Pelvis X-Ray 08/31/21 08:58 XR pelvis 1-2V routine, XR femur LT 2V routine CLINICAL HISTORY: fall, pain TECHNIQUE: A single frontal view of the pelvis was obtained. 2 views of the left femur were obtained. Comparison: None available at the time of this dictation. FINDINGS: There is a fracture of the left femoral neck with mild impaction and angulation. The bones are anatomically aligned. Mild degenerative changes are seen. Soft tissue swelling is seen in the left hip. IMPRESSION: Acute fracture of the left femoral neck. ACT 112: Negative or not required by law. Electronically signed by: Jeremiah Barrera M.D. 08/31/2021 10:42 AM Shoulder X-Ray 08/31/21 09:01 XR shoulder LT min 2V routine CLINICAL HISTORY: fall TECHNIQUE: 3 views of the left shoulder were obtained. Comparison: Comparison is made to left shoulder radiographs 02/05/2021 FINDINGS: Old healed fracture of the left humeral head is seen. No evidence of acute fracture. Joint spaces are well-preserved. The overlying soft tissues are unremarkable. The visualized portions of the lungs are clear. IMPRESSION: Old healed fracture of left humeral head without evidence of acute fracture. ACT 112: Negative or not required by law. Electronically signed by: Jeremiah Barrera M.D. 08/31/2021 10:[address] 08/31/21 10:27 CT OF THE HEAD WITHOUT CONTRAST CLINICAL HISTORY: Fall. COMPARISON STUDY: No previous studies for comparison. CT DOSE: 788.63 mGycm TECHNIQUE: Helical axial images of the head were obtained without IV contrast. Automated exposure control was utilized for the study. A dose lowering technique was utilized adhering to the principles of ALARA. FINDINGS: No acute intracranial hemorrhage, midline shift or mass effect is present. The ventricular system is unremarkable. The basal cisterns are patent. No extra-axial collections are present. There is moderate cerebellar atrophy. There are no findings to suggest acute dural sinus thrombosis or acute territorial infarct. No significant calvarial abnormalities are present. Small air-fluid level within the left maxillary sinus is noted. IMPRESSION: 1. No acute intracranial findings. 2. No calvarial fracture. ACT 112: Negative or not required by law. Electronically signed by: Jose Peraza M.D. 08/31/2021 11:[address] 08/31/21 10:27 CT SCAN OF THE LUMBAR SPINE WITHOUT IV CONTRAST CLINICAL HISTORY: Fall. Low back pain. COMPARISON STUDY: Lateral chest x-ray dated 07/09/2020. TECHNIQUE: CT scan of the lumbar spine is performed from the lower thoracic spine to the sacrum. Images are reviewed in the axial, sagittal, and coronal planes. IV contrast was not administered for this examination. A dose lowering technique was utilized adhering to the principles of ALARA. CT DOSE: 656.49 mGycm FINDINGS: The skeletal structures are osteopenic. There is a minimal and age indeterminant superior endplate compression deformity of L2. Vertebral body height is otherwise maintained throughout the lumbar spine. Alignment is preserved. There is also a mild and age indeterminant inferior endplate com pression deformity of T12. The transverse and spinous processes appear intact. There is no spondylolysis. No lytic or blastic lesion is seen. There is moderate disc space narrowing at L5-S1. Mild disc space narrowing is seen at L4-L5. The remaining disc spaces appear maintained. Small posterior disc osteophyte complexes are noted at L4-L5 and L5-S1. Facet arthropathy is seen in the lower lumbar region. The visualized sacrum and bony pelvis appear intact. Degenerative change is noted in the sacroiliac joints. The paraspinous soft tissues are normal as imaged. There is atherosclerotic calcification of the abdominal aorta. Calcified gallstones are partially visualized. There are bilateral nonob structing renal calculi which measure up to 5 mm. Ascites is noted in the right upper quadrant. IMPRESSION: 1. There is a minimal and age indeterminant superior endplate compression deformity of L2. 2. No additional findings are concerning for acute fracture involving the lumbar spine. 3. There is a mild and age indeterminant inferior endplate compression deformity of T12. This was not seen on the 07/09/2020 lateral chest x-ray. Correlate for point tenderness. 4. Osteopenia and spondylotic change as above. 5. Perihepatic ascites is noted in the right upper quadrant. 6. Cholelithiasis and bilateral nephrolithiasis. ACT 112: Negative or not required by law. Electronically signed by: Sal Bernal M.D. 08/31/2021 11:32 AM Discharge Plan Visit Data Chief Complaint: Fall Stated Complaint: FALL, HIP PAIN ED Provider: Juni Linares Discharge Problem: Fall, History of cirrhosis, Closed fracture of left hip, Total bilirubin, elevated Patient Disposition: Being Evaluated by Hospitalist Forms Stand Alone Forms: My [employer] Prescriptions Prescriptions: No Action trazodone 50 mg Tablet 25 mg PO HS PRN (Reason: Sleep) RF: 0 spironolactone 25 mg tablet 25 mg PO QAM RF: 0 furosemide 40 mg tablet 40 mg PO BID RF: 0 gabapentin 400 mg capsule 400 mg PO TID RF: 0 potassium chloride 10 mEq tablet,ER particles/crystals 10 meq PO QAM RF: 0 escitalopram oxalate 5 mg tablet 5 mg PO QAM RF: 0 oxycodone 5 mg tablet 5 mg PO Q4H PRN (Reason: Pain) RF: 0 pregabalin [Lyrica] 75 mg Capsule 75 mg PO BID RF: 0 Referrals Referrals: Rosana Bhagat DO [Primary Care Provider] - Discharge Problem: Fall Qualifiers: Encounter type: initial encounter Qualified Code(s): W19.XXXA - Unspecified fall, initial encounter Closed fracture of left hip Qualifiers: Encounter type: initial encounter Qualified Code(s): S72.002A - Fracture of unspecified part of neck of left femur, initial encounter for closed fracture
[2021-08-31] MEDS ORDERED: fentaNYL citrate 100 MCG/2 ML VIAL IV STA ×2 (09:02→10:36)
[2021-08-31 09:58] LABS: INR 1.9 (0.9-1.1); Partial Thromboplastin Ratio 1.4; Partial Thromboplastin Time 37.6 Seconds (21.0-31.0); Prothrombin Time 18.3 Seconds (9.0-12.0)
[2021-08-31 10:05] LABS: Alanine Aminotransferase 33 U/L (7-52); Albumin Globulin Ratio 0.6 (0.9-2); Albumin Level 2.7 gm/dl (3.4-5.0); Alkaline Phosphatase 173 U/L (34-104); Anion Gap 9 (3-11); Aspartate Aminotransferase 57 U/L (13-39); BUN Creatinine Ratio 6.4 (10-20); Bilirubin,Total 9.5 mg/dl (0.2-1.0); Blood Urea Nitrogen 5 mg/dl (6-23); Calcium 8.1 mg/dl (8.5-10.1); Carbon Dioxide 30 mmol/L (21-32); Chloride 92 mmol/L (98-107); Est GFR (African American) 105.3 ml/min; Est GFR (Non-African American) 90.8 ml/min; Globulin 4.7 gm/dl (2.5-4.0); Glucose 180 mg/dl (70-99(Fasting)); Potassium 3.5 mmol/L (3.5-5.1); Sodium 131 mmol/L (136-145); Total Protein 7.4 gm/dl (6.0-8.3)
[2021-08-31 10:25] LABS: Appearance Urine Clear (Clear); Bacteria Urine Automated Negative (Negative); Bilirubin Urine Negative (Negative); Blood Urine 2+ (Negative); Color Urine Yellow; Epithelial Cell Urine Auto 0-5 /lpf (0-5); Glucose Urine UA Negative (Negative); Ketones Urine Negative (Negative); Leukocyte Esterase Urine Negative (Negative); Nitrite Urine Negative (Negative); Protein Urine Negative (Negative); Specific Gravity Urine 1.006 (1.000-1.030); Urobilinogen Urine Negative (Negative); pH Urine 7.5 (4.5-7.5)
--- NOTE | 2021-08-31 10:42 | XRay Report ---
XR chest 1V portable CLINICAL HISTORY: fall TECHNIQUE: Single frontal radiograph of the chest was obtained. Comparison: Comparison is made to chest one view 02/10/2021 FINDINGS: No lines and tubes are seen. The cardiomediastinal silhouette is stable. The lungs are clear. No evid ence of pleural effusion or pneumothorax. IMPRESSION: No acute chest disease. ACT 112: Negative or not required by law. Electronically signed by: Jeremiah Barrera M.D. 08/31/2021 10:40 AM
--- NOTE | 2021-08-31 10:43 | XRay Report ---
XR pelvis 1-2V routine, XR femur LT 2V routine CLINICAL HISTORY: fall, pain TECHNIQUE: A single frontal view of the pelvis was obtained. 2 views of the left femur were obtained. Comparison: None available at the time of this dictation. FINDINGS: There is a fracture of the left femoral neck with mild impaction and angulation. The bones are anatom ically aligned. Mild degenerative changes are seen. Soft tissue swelling is seen in the left hip. IMPRESSION: Acute fracture of the left femoral neck. ACT 112: Negative or not required by law. Electronically signed by: Jeremiah Barrera M.D. 08/31/2021 10:42 AM
--- NOTE | 2021-08-31 10:46 | XRay Report ---
XR shoulder LT min 2V routine CLINICAL HISTORY: fall TECHNIQUE: 3 views of the left shoulder were obtained. Comparison: Comparison is made to left shoulder radiographs 02/05/2021 FINDINGS: Old healed fracture of the left humeral head is seen. No evidence of acute fracture. Joint spaces are well-preserved. The overlying soft tissues are unremarkable. The visualized portions of the lungs ar e clear. IMPRESSION: Old healed fracture of left humeral head without evidence of acute fracture. ACT 112: Negative or not required by law. Electronically signed by: Jeremiah Barrera M.D. 08/31/2021 10:44 AM
--- NOTE | 2021-08-31 11:23 | CT Scan Report ---
CT OF THE HEAD WITHOUT CONTRAST CLINICAL HISTORY: Fall. COMPARISON STUDY: No previous studies for comparison. CT DOSE: 788.63 mGycm TECHNIQUE: Helical axial images of the head were obtained without IV contrast. Automated exposure con trol was utilized for the study. A dose lowering technique was utilized adhering to the principles o f ALARA. FINDINGS: No acute intracranial hemorrhage, midline shift or mass effect is present. The ventricular system is unremarkable. The basal cisterns are patent. No extra-axial collections are present. There is moderate cerebellar atrophy. There are no findings to suggest acute dural sinus thrombosis or acut e territorial infarct. No significant calvarial abnormalities are present. Small air-fluid level with in the left maxillary sinus is noted. IMPRESSION: 1. No acute intracranial findings. 2. No calvarial fracture. ACT 112: Negative or not required by law. Electronically signed by: Jose Peraza M.D. 08/31/2021 11:22 AM
--- NOTE | 2021-08-31 11:33 | CT Scan Report ---
CT SCAN OF THE LUMBAR SPINE WITHOUT IV CONTRAST CLINICAL HISTORY: Fall. Low back pain. COMPARISON STUDY: Lateral chest x-ray dated 07/09/2020. TECHNIQUE: CT scan of the lumbar spine is performed from the lower thoracic spine to the sacrum. Imag es are reviewed in the axial, sagittal, and coronal planes. IV contrast was not administered for this examination. A dose lowering technique was utilized adhering to the principles of ALARA. CT DOSE: 656.49 mGycm FINDINGS: The skeletal structures are osteopenic. There is a minimal and age indeterminant superior e ndplate compression deformity of L2. Vertebral body height is otherwise maintained throughout the lum bar spine. Alignment is preserved. There is also a mild and age indeterminant inferior endplate compr ession deformity of T12. The transverse and spinous processes appear intact. There is no spondylolysi s. No lytic or blastic lesion is seen. There is moderate disc space narrowing at L5-S1. Mild disc spa ce narrowing is seen at L4-L5. The remaining disc spaces appear maintained. Small posterior disc oste ophyte complexes are noted at L4-L5 and L5-S1. Facet arthropathy is seen in the lower lumbar region. The visualized sacrum and bony pelvis appear intact. Degenerative change is noted in the sacroiliac j oints. The paraspinous soft tissues are normal as imaged. There is atherosclerotic calcification of t he abdominal aorta. Calcified gallstones are partially visualized. There are bilateral nonobstructing renal calculi which measure up to 5 mm. Ascites is noted in the right upper quadrant. IMPRESSION: 1. There is a minimal and age indeterminant superior endplate compression deformity of L2. 2. No additional findings are concerning for acute fracture involving the lumbar spine. 3. There is a mild and age indeterminant inferior endplate compression deformity of T12. This was not seen on the 07/09/2020 lateral chest x-ray. Correlate for point tenderness. 4. Osteopenia and spondylotic change as above. 5. Perihepatic ascites is noted in the right upper quadrant. 6. Cholelithiasis and bilateral nephrolithiasis. ACT 112: Negative or not required by law. Electronically signed by: Sal Bernal M.D. 08/31/2021 11:32 AM
--- NOTE | 2021-08-31 12:20 | Electrocardiogram Report ---
Test Reason : Blood Pressure : / mmHG Vent. Rate : 109 BPM Atrial Rate : 109 BPM P-R Int : 148 ms QRS Dur : 100 ms QT Int : 358 ms P-R-T Axes : 061 -39 110 degrees QTc Int : 482 ms Poor data quality, interpretation may be adversely affected Sinus tachycardia Left axis deviation Left ventricular hypertrophy with repolarization abnormality Abnormal ECG Confirmed by Chris Hanson ([id number]) on 08/31/2021 12:19:52 PM Referred By: Confirmed By:Davey Hanson
[2021-08-31 12:55] LABS: Hematocrit (blood only) 37.6 % (42-52); Hemoglobin 13.4 g/dL (14.0-18.0); Mean Corpuscular Hemoglobin 39.4 pg (25-34); Mean Corpuscular Hgb Conc 35.6 g/dL (32-36); Mean Corpuscular Volume 110.6 fL (80-100); Mean Platelet Volume 11.2 fL (7.4-10.4); Nucleated RBC # (auto) 0.04 K/uL (0-0); Nucleated RBC % (auto) 0.5 %; Platelet Count 86 K/uL (130-400); RDW Coefficient of Variation 14.4 % (11.5-14.5); White Blood Count 7.48 K/uL (4.8-10.8)
[2021-08-31 12:56] LABS: Basophils # (auto) 0.03 K/uL (0-0.2); Basophils % (auto) 0.4 %; Eosinophils # (auto) 0.07 K/uL (0-0.5); Eosinophils % (auto) 0.9 %; Immature Granulocytes # (auto) 0.09 K/uL (0.00-0.02); Immature Granulocytes % (auto) 1.2 %; Lymphocytes # (auto) 0.82 K/uL (1.2-3.4); Macrocytosis Present; Monocytes # (auto) 0.82 K/uL (0.11-0.59); Neutrophils # (auto) 5.65 K/uL (1.4-6.5); Neutrophils % (auto) 75.5 %; Platelet Estimate Decreased (Normal)
[2021-08-31] MEDS: fentaNYL citrate 100 MCG/2 ML VIAL IV PRN ×3 (12:59→16:45)
--- NOTE | 2021-08-31 13:42 | History & Physical Report ---
Date of Service August 31, 2021 Assessment & Plan (1) Fall: (2) Closed fracture of left hip: Plan: This is a 71yo M with a PMH of cirrhosis of liver with ascites in setting of hepatocellular carcinoma diagnosed in January 2021, peripheral neuropathy, thrombocytopenia and other medical problems listed below who presents after fall at work earlier today and was found to have . Femur XR with acute fracture of the left femoral neck Received Fentanyl in ED for pain control. Will transition to oxycodone PRN Pre-op abx, care per hip fracture protocol CXR with no acute cardiac process, EKG with sinus tachycardia, LAD Underwent cardiac eval last week as potential liver transplant candidate with normal dobutamine stress test Supratherapeutic INR in setting of liver disease- mgmt discussed below Revised Cardiac Risk Index for pre-op risk score class 1 risk (3.9%) Discussed case with Dr. Meza, who plans for OR tomorrow. NPO after midnight (3) Supratherapeutic INR: Plan: INR 1.9 in setting of cirrhosis Per Dr. Meza, goal pre-op INR is 1.[address] Newman, who recommends 10mg IV Vitamin K now - baseline INR may be ~ 1.5 given liver pathology Repeat INR in AM (4) Cirrhosis of liver with ascites: (5) Hepatocellular carcinoma: Plan: HCC diagnosed in January 2021, following with [facility] hepatology. Tbili 9.5, AST 57, ALT 33, Alk phos 173, plt 86 Patient is a liver transplant candidate who was scheduled for IR procedure this coming Monday for directed chemotherapy Continue lasix, spironolactone. Low sodium diet Monitor volume status closely Consider post-op GI consult Monitor daily CMP (6) Thrombocytopenia: Plan: Platelets of 86 in setting of cirrhosis. No active bleeding, not on antiplatelet medications No indication for transfusion at this time Will notify blood band of patient's condition since headed to OR tmrw, per recommendation of Dr. Newman Daily CBC (7) Peripheral neuropathy: Plan: Continue gabapentin, lyrica DVT Ppx: SCDs Code status: FULL PCP: Olayinka Dispo: Admitted to med/surg Patient seen in collaboration with Dr. Jurado. Please see addendum. History of Present Illness Chief Complaint: fall, hip pain Primary Care Provider: Rosana Bhagat, DO This is a 71yo M with a PMH of cirrhosis of liver with ascites in setting of hepatocellular carcinoma diagnosed in January 2021, peripheral neuropathy, thrombocytopenia and other medical problems listed below who presents after fall at work earlier today. Patient was walking into work and was in the process of walking up a step when he fell onto left side. Has peripheral neuropathy at baseline which results in some ambulatory dysfunction, per patient. Denies any head trauma or loss of consciousness. Pain better controlled in ED on fentanyl. Denies any worsening paresthesias or pain in lower extremities. Patient is a liver transplant candidate who was scheduled for IR procedure this coming Monday for directed chemotherapy. Underwent pre-op cardiology evaluation last week with stress echo negative for inducible ischemia. Lasix dose increased to 40mg BID due to uncontrolled edema with continuation of spironolactone. Following with hepatology in [place]. No fever, chills, lightheadedness, headache, CP, SOB, nausea, vomiting, abdominal pain, dysuria, diarrhea or constipation. Does say abdomen is more distended than previously but has never undergone paracentesis. Allergies Allergy/AdvReac Type Severity Reaction Status Date / Time Sulfa (Sulfonamide Allergy Mild Rash Verified 08/31/21 12:02 Antibiotics) morphine AdvReac Intermediate crazy Verified 08/31/21 12:02 Home Medications Medication Instructions Recorded Confirmed Type spironolactone 25 mg tablet 25 mg PO QAM 02/05/21 08/31/21 History trazodone 50 mg tablet 25 mg PO HS PRN 02/05/21 08/31/21 History escitalopram oxalate 5 mg tablet 5 mg PO QAM 08/31/21 08/31/21 History furosemide 40 mg tablet 40 mg PO BID 08/31/21 08/31/21 History gabapentin 400 mg capsule 400 mg PO TID 08/31/21 08/31/21 History oxycodone 5 mg tablet 5 mg PO Q4H PRN 08/31/21 08/31/21 History potassium chloride 10 mEq 10 meq PO QAM 08/31/21 08/31/21 History tablet,extended release(part/cryst) pregabalin 75 mg capsule (Lyrica) 75 mg PO BID 08/31/21 08/31/21 History Past Med/Surg History Medical History Abnormal LFTs Adhesive capsulitis of left shoulder Anemia Cirrhosis of liver with ascites Edema, peripheral Fracture of proximal humerus Hepatocellular carcinoma Peripheral neuropathy Thrombocytopenia Surgical History Hx of appendectomy Family History Other Asthma Diabetes Social History Smoking Status: Never smoker Second Hand Exposure: No; Do You Dip or Chew Tobacco: No; Tobacco Cessation Education Requested by Patient: No Hx Alcohol Use: No Hx Substance Use: No Preferred Language: Greenlandic Communication Ability: Effective Visual Impairment: Partially Limited Hearing Ability: Normal Heel Gouger Required: No Beliefs That Will Affect Care: [facility] Current Living Situation: Spouse Current Living Situation Comment: Feels Safe at Home: Yes Safety Concerns: Feels Safe At This Time Assistive Devices: None Review of Systems Review of Systems: At least ten systems reviewed and negative except as noted in the HPI. Physical Exam Physical Exam: General Appearance: WD/WN, vitals as above, NAD, sitting up in bed, pleasant, +jaundice Head: normocephalic, atraumatic Eyes: normal inspection, PERRL, conjunctivae normal, anicteric sclerae ENT: external ear and nose normal, oropharynx normal Neck: normal visual inspection, trachea midline, no thyromegaly Respiratory: normal respiratory effort, lungs clear to auscultation, no wheeze, rales, rhonchi. No accessory muscle use Cardiovascular: regular rate, rhythm, no murmur, normal peripheral pulses, no BLE edema. Vessels: no JVD Chest: normal inspection of chest Abdomen/GI: normal bowel sounds, distended but soft, nontender, no hepatosplenomegaly Extremities/Musculoskeletal: +L hip TTP, no lesions or deformities noted. No cyanosis or clubbing, extremities motor strength 5/5 Neurologic: PERRL, EOMI, accommodation nl, no face palsy, no dysarthria, CN's II-XI intact bilaterally and moves all extremities Psychiatric: A+Ox3, euthymic affect Skin: no rashes, + jaundice, warm/dry Results & Data Results & Data ([facility]) Vital Signs (Past 12 Hours) Vital Signs Temp Pulse Pulse Resp BP BP Pulse Ox 08/31/21 12:00 108 H 16 107/70 94 01/25/22 10:46 107 H 16 130/84 92 08/31/21 08:51 36.7 C 108 H 108 H 20 102/75 95 Laboratory Results Short CBC 08/31/21 08/31/21 Range/Units 09:44 09:44 WBC Cancelled 7.48 Hgb Cancelled 13.4 L Hct Cancelled 37.6 L Plt Count Cancelled 86 L BMP 08/31/21 09:28 Sodium 131 L Potassium 3.5 Chloride 92 L Carbon Dioxide 30 BUN 5 L Creatinine 0.78 Glucose 180 H Calcium 8.1 L Liver Function 08/31/21 Range/Units 09:28 Total Bilirubin 9.5 H (0.2-1.0) mg/dl AST 57 H (13-39) U/L ALT 33 (7-52) U/L Alkaline Phosphatase 173 H (34-104) U/L Albumin 2.7 L (3.4-5.0) gm/dl Urine 08/31/21 Range/Units 09:55 Urine Color Yellow Urine Appearance Clear (Clear) Urine pH 7.5 (4.5-7.5) Ur Specific [place] 1.006 (1.000-1.030) Urine Protein Negative (Negative) Urine Glucose (UA) Negative (Negative) Diagnostic Findings Chest X-Ray 08/31/21 08:58 XR chest 1V portable CLINICAL HISTORY: fall TECHNIQUE: Single frontal radiograph of the chest was obtained. Comparison: Comparison is made to chest one view 02/10/2021 FINDINGS: No lines and tubes are seen. The cardiomediastinal silhouette is stable. The lungs are clear. No evidence of pleural effusion or pneumothorax. IMPRESSION: No acute chest disease. ACT 112: Negative or not required by law. Electronically signed by: Jeremiah Barrera M.D. 08/31/2021 10:40 AM Femur X-Ray 08/31/21 08:58 XR pelvis 1-2V routine, XR femur LT 2V routine CLINICAL HISTORY: fall, pain TECHNIQUE: A single frontal view of the pelvis was obtained. 2 views of the left femur were obtained. Comparison: None available at the time of this dictation. FINDINGS: There is a fracture of the left femoral neck with mild impaction and angulation. The bones are anatomically aligned. Mild degenerative changes are seen. Soft tissue swelling is seen in the left hip. IMPRESSION: Acute fracture of the left femoral neck. ACT 112: Negative or not required by law. Electronically signed by: Jeremiah Barrera M.D. 08/31/2021 10:42 AM Pelvis X-Ray 08/31/21 08:58 XR pelvis 1-2V routine, XR femur LT 2V routine CLINICAL HISTORY: fall, pain TECHNIQUE: A single frontal view of the pelvis was obtained. 2 views of the left femur were obtained. Comparison: None available at the time of this dictation. FINDINGS: There is a fracture of the left femoral neck with mild impaction and angulation. The bones are anatomically aligned. Mild degenerative changes are seen. Soft tissue swelling is seen in the left hip. IMPRESSION: Acute fracture of the left femoral neck. ACT 112: Negative or not required by law. Electronically signed by: Jeremiah Barrera M.D. 08/31/2021 10:42 AM Shoulder X-Ray 08/31/21 09:01 XR shoulder LT min 2V routine CLINICAL HISTORY: fall TECHNIQUE: 3 views of the left shoulder were obtained. Comparison: Comparison is made to left shoulder radiographs 02/05/2021 FINDINGS: Old healed fracture of the left humeral head is seen. No evidence of acute fracture. Joint spaces are well-preserved. The overlying soft tissues are unremarkable. The visualized portions of the lungs are clear. IMPRESSION: Old healed fracture of left humeral head without evidence of acute fracture. ACT 112: Negative or not required by law. Electronically signed by: Jeremiah Barrera M.D. 08/31/2021 10:[address] 08/31/21 10:27 CT OF THE HEAD WITHOUT CONTRAST CLINICAL HISTORY: Fall. COMPARISON STUDY: No previous studies for comparison. CT DOSE: 788.63 mGycm TECHNIQUE: Helical axial images of the head were obtained without IV contrast. Automated exposure control was utilized for the study. A dose lowering technique was utilized adhering to the principles of ALARA. FINDINGS: No acute intracranial hemorrhage, midline shift or mass effect is present. The ventricular system is unremarkable. The basal cisterns are patent. No extra-axial collections are present. There is moderate cerebellar atrophy. There are no findings to suggest acute dural sinus thrombosis or acute territorial infarct. No significant calvarial abnormalities are present. Small air-fluid level within the left maxillary sinus is noted. IMPRESSION: 1. No acute intracranial findings. 2. No calvarial fracture. ACT 112: Negative or not required by law. Electronically signed by: Jose Pearza M.D. 08/31/2021 11:[address] 08/31/21 10:27 CT SCAN OF THE LUMBAR SPINE WITHOUT IV CONTRAST CLINICAL HISTORY: Fall. Low back pain. COMPARISON STUDY: Lateral chest x-ray dated 07/09/2020. TECHNIQUE: CT scan of the lumbar spine is performed from the lower thoracic spine to the sacrum. Images are reviewed in the axial, sagittal, and coronal planes. IV contrast was not administered for this examination. A dose lowering technique was utilized adhering to the principles of ALARA. CT DOSE: 656.49 mGycm FINDINGS: The skeletal structures are osteopenic. There is a minimal and age indeterminant superior endplate compression deformity of L2. Vertebral body height is otherwise maintained throughout the lumbar spine. Alignment is preserved. There is also a mild and age indeterminant inferior endplate compression deformity of T12. The transverse and spinous processes appear intact. There is no spondylolysis. No lytic or blastic lesion is seen. There is moderate disc space narrowing at L5-S1. Mild disc space narrowing is seen at L4- L5. The remaining disc spaces appear maintained. Small posterior disc osteophyte complexes are noted at L4-L5 and L5-S1. Facet arthropathy is seen in the lower lumbar region. The visualized sacrum and bony pelvis appear intact. Degenerative change is noted in the sacroiliac joints. The paraspinous soft tissues are normal as imaged. There is atherosclerotic calcification of the abdominal aorta. Calcified gallstones are partially visualized. There are bilateral nonobstructing renal calculi which measure up to 5 mm. Ascites is noted in the right upper quadrant. IMPRESSION: 1. There is a minimal and age indeterminant superior endplate compression deformity of L2. 2. No additional findings are concerning for acute fracture involving the lumbar spine. 3. There is a mild and age indeterminant inferior endplate compression deformity of T12. This was not seen on the 07/09/2020 lateral chest x-ray. Correlate for point tenderness. 4. Osteopenia and spondylotic change as above. 5. Perihepatic ascites is noted in the right upper quadrant. 6. Cholelithiasis and bilateral nephrolithiasis. ACT 112: Negative or not required by law. Electronically signed by: Sal Bernal M.D. 08/31/2021 11:32 AM Supervising Physician Co-Signing Physician Notes Pt is a 71 y/o M with hx of recent dx of hepatocellular carcinoma, Cirrhosis with portal hypertension, Thrombocytopenia and elevated bili, Splenomegaly, Peripheral neuropathy, hx of L proximal humerus fracture admitted for traumatic L femoral neck fracture. PE: Mild distress due to pain and appear jaundice Cardiac: normal S1/S2, no murmur Lungs: CTA, no wheezing or crackles Abd: distended, NT, Normal BS, neg fluid wave MSK: b/l severe pitting edema up to the knee Psych: AAOx3, normal affect A/P: L femoral neck fracture: -ortho consulted: likely surgery tomorrow therefore NPO After MN -will do standing oxycodone for pain management -Pts INR is supratherapeutic due to cirrhosis --- discussed with Dr. Newman: will do Vit K for supratherapeutic INR --- Ortho is okay with INR< 1.5 ---will discuss pts case with blood bank due to thrombocytopenia for possible future plt transfusion --pt is okay with blood product transfusion Cirrhosis with ascites and hx of hepatocellular carcinoma: -pt has chronic elevated T bili and LFTs -will correct elevated INR -no sign of infection -will continue to monitor LFTs -will hold GI consult for now Compression fracture of T12: -age undetermined -for now c/w pain management - ortho consult Agree with A/P by Tamera Meza PA-C (1) Fall Encounter type: initial encounter Qualified Code(s): W19.XXXA - Unspecified fall, initial encounter (2) Closed fracture of left hip Encounter type: initial encounter Qualified Code(s): S72.002A - Fracture of unspecified part of neck of left femur, initial encounter for closed fracture
[2021-08-31] MEDS ORDERED: PHYTONADIONE 10 MG in SODIUM CHLORIDE 0.9% 50 ML IV ONE (15:15)
[2021-08-31] MEDS ORDERED: NALOXONE HCL 0.4 MG/1 ML VIAL/CARP IV PRN (17:24)
[2021-08-31] MEDS ORDERED: bisacodyL 10 MG SUPP PR PRN (17:24)
[2021-08-31] MEDS ORDERED: MAGNESIUM HYDROXIDE SUSP 30 ML UDC PO PRN (17:24)
[2021-08-31] MEDS ORDERED: ONDANSETRON INJ 2 MG/ML 2 ML VIAL IV PRN (17:24)
--- NOTE | 2021-08-31 18:10 | Orthopedic Consultation ---
Date of Service August 31, 2021 Assessment & Plan (1) Closed fracture of left hip: Patient's been admitted by the hospitalist service. He is got again in the process of being a medically optimized. His INR is supratherapeutic and he is getting some vitamin K. His platelets are about 100,000 but that should be acceptable. There are platelets available if needed. This is some that is best treated there with surgical management which would be a cemented hip arthroplasty for this patient. The risks med this procedure explained the patient include but not limited to DVT PE infection neurological injury vascular bleeding palm pain limb range of motion this is fairly her symptoms and complete relief of symptoms dislocation leg length inequality need for blood transfusion etc. The patient understands and desires to proceed informed consent is obtained. DVT prophylaxis include thigh teds and SCDs. N.p.o. after midnight. There are platelets available in the blood bank. It is unlikely will need those. He is got vitamin K already. We will check a PT and INR in the morning. Thyrolar-1 likely be fully corrected by the partially corrected which should be adequate. History of Present Illness Reason for Consultation: Left displaced femoral neck fracture Requesting Physician: . Attending Physician: Rosey Jurado MD . Patient is 71-year-old gentleman who sustained a fall earlier today. He is got a complex past medical history with underlying cirrhosis and liver cancer. He was getting out of his car going to work at the [employer] when he slipped on some ice and fell. The acute onset of pain in his left hip. Was brought to emergency room x-rays reveal displaced femoral neck fracture. We are consulted for evaluation. Has been admitted by the medicine service. No other injuries. He did have a relatively recent fall in with a left shoulder fracture. Denies any head injury. He is having some back pain. No radicular type symptoms. He said no pre-existing hip problems. He does use a cane normally to ambulate for balance purposes more than anything. Of note, this patient does have this is pretty significant liver disease which is affected his coagulation cascade. He is currently in the process of looking for a liver transplant. Allergies Allergy/AdvReac Type Severity Reaction Status Date / Time Sulfa (Sulfonamide Allergy Mild Rash Verified 08/31/21 12:02 Antibiotics) morphine AdvReac Intermediate crazy Verified 08/31/21 12:02 Home Medications Medication Instructions Recorded Confirmed Type spironolactone 25 mg tablet 25 mg PO QAM 02/05/21 08/31/21 History trazodone 50 mg tablet 25 mg PO HS PRN 02/05/21 08/31/21 History escitalopram oxalate 5 mg tablet 5 mg PO QAM 08/31/21 08/31/21 History furosemide 40 mg tablet 40 mg PO BID 08/31/21 08/31/21 History gabapentin 400 mg capsule 400 mg PO TID 08/31/21 08/31/21 History oxycodone 5 mg tablet 5 mg PO Q4H PRN 08/31/21 08/31/21 History potassium chloride 10 mEq 10 meq PO QAM 08/31/21 08/31/21 History tablet,extended release(part/cryst) pregabalin 75 mg capsule (Lyrica) 75 mg PO BID 08/31/21 08/31/21 History Past Med/Surg History Medical History Abnormal LFTs Adhesive capsulitis of left shoulder Anemia Cirrhosis of liver with ascites Edema, peripheral Fracture of proximal humerus Hepatocellular carcinoma Peripheral neuropathy Thrombocytopenia Surgical History Hx of appendectomy Family History Other Asthma Diabetes Social History Smoking Status: Never smoker Second Hand Exposure: No; Do You Dip or Chew Tobacco: No; Tobacco Cessation Education Requested by Patient: No Hx Alcohol Use: No Hx Substance Use: No Preferred Language: Israeli Communication Ability: Effective Visual Impairment: Partially Limited Hearing Ability: Normal Twitchell Operator Required: No Beliefs That Will Affect Care: Jainism Current Living Situation: Spouse Current Living Situation Comment: Feels Safe at Home: Yes Safety Concerns: Feels Safe At This Time Assistive Devices: None Review of Systems All systems reviewed & are unremarkable except as noted in HPI & below. Physical Exam . Physical examination reveals a pleasant elderly male. He is lying in bed looks reasonably comfortable. General musculoskeletal exam reveals relatively painless motion of both upper extremities and the right lower extremity. He does have some palpable discomfort in his lower lumbar spine. Examination left leg reveals be slightly shortened and externally rotated. There is no bruising. Skin is intact. He has marked pain with any type of hip motion. No knee effusion. He is neurologically intact. Results & Data Results & Data Laboratory Results . Diagnostic Findings . Displaced femoral neck fracture. Fairly minimal arthritic change. Is got diffuse osteopenia. PG Care Time/CCT Total # of Minutes Spent Total Time Spent with Patient: Total time spent is greater than 50% in coordination of care (as documented) at patient's floor/unit and/or counseling patient: Coding Level of Care Code 00491 Inpt Consult Level 5 Diagnoses Closed fracture of left hip S72.002A Encounter type: initial encounter (1) Closed fracture of left hip Encounter type: initial encounter Qualified Code(s): S72.002A - Fracture of unspecified part of neck of left femur, initial encounter for closed fracture
[2021-08-31] MEDS: GABAPENTIN 400 MG CAP PO SCH ×2 (18:13→21:24)
[2021-08-31] MEDS: FUROSEMIDE 40 MG TAB PO SCH (18:13)
[2021-08-31] MEDS: oxyCODONE HCL IR 5 MG TAB (IMMEDIATE RELEASE) PO PRN ×2 (18:31→22:39)
--- NOTE | 2021-08-31 19:18 | Anesthesiology Consultation ---
Date of Service August 31, 2021 Assessment & Plan (1) Encounter for pre-operative examination: Patient with known cirrhosis and hepatocellular cancer who was scheduled for directed chemotherapy later this week. On transplant list. Will need to check INR in AM. Hospitalist note08/31/21: Assessment & Plan (1) Fall: (2) Closed fracture of left hip: Plan: This is a 71yo M with a PMH of cirrhosis of liver with ascites in setting of hepatocellular carcinoma diagnosed in January 2021, peripheral neuropathy, thrombocytopenia and other medical problems listed below who presents after fall at work earlier today and was found to have . Femur XR with acute fracture of the left femoral neck Received Fentanyl in ED for pain control. Will transition to oxycodone PRN Pre-op abx, care per hip fracture protocol CXR with no acute cardiac process, EKG with sinus tachycardia, LAD Underwent cardiac eval last week as potential liver transplant candidate with normal dobutamine stress test Supratherapeutic INR in setting of liver disease- mgmt discussed below Revised Cardiac Risk Index for pre-op risk score class 1 risk (3.9%) Discussed case with Dr. Meza, who plans for OR tomorrow. NPO after midnight Chart Review Chart Review: Acceptable Risk for Surgery and Patient NOT seen in Pre Admission Testing Consults Requested none History Surgery Operation Date: 09/01/21 12:30 Proposed Procedures p Left Bipolar Hemiarthroplasty Cemented - Mervin Meza MD Height/Weight Height: 5 ft 9 in Weight: 87.2 kg Allergies Allergy/AdvReac Type Severity Reaction Status Date / Time Sulfa (Sulfonamide Allergy Mild Rash Verified 08/31/21 12:02 Antibiotics) morphine AdvReac Intermediate crazy Verified 08/31/21 12:02 Medications Home Medications Medication Instructions Recorded Confirmed Last Taken spironolactone 25 mg tablet 25 mg PO QAM 02/05/21 08/31/21 08/31/21 trazodone 50 mg tablet 25 mg PO HS PRN 02/05/21 08/31/21 Unknown escitalopram oxalate 5 mg tablet 5 mg PO QAM 08/31/21 08/31/21 08/31/21 furosemide 40 mg tablet 40 mg PO BID 08/31/21 08/31/21 08/31/21 gabapentin 400 mg capsule 400 mg PO TID 08/31/21 08/31/21 08/31/21 oxycodone 5 mg tablet 5 mg PO Q4H PRN 08/31/21 08/31/21 Unknown potassium chloride 10 mEq 10 meq PO QAM 08/31/21 08/31/21 08/31/21 tablet,extended release(part/cryst) pregabalin 75 mg capsule (Lyrica) 75 mg PO BID 08/31/21 08/31/21 Unknown Active Medications Generic Name Dose Route Start Last Admin Trade Name Freq PRN Reason Stop Dose Admin Furosemide 40 mg 08/31/21 18:00 08/31/21 18:13 Furosemide 40 Mg Tab PO 09/30/21 17:59 40 mg [id number] MURALI Administration Gabapentin 400 mg 08/31/21 17:24 08/31/21 18:13 Gabapentin 400 Mg Cap PO 09/30/21 17:23 400 mg TID MURALI Administration Oxycodone HCl 5 mg 08/31/21 16:35 08/31/21 18:31 Oxycodone Hcl Ir 5 Mg Tab (Immediate Release) PO 09/14/21 16:34 5 mg Q4H PRN Administration Pain Past Medical History Medical History Abnormal LFTs Adhesive capsulitis of left shoulder Anemia Cirrhosis of liver with ascites Edema, peripheral Fracture of proximal humerus Hepatocellular carcinoma Peripheral neuropathy Thrombocytopenia Patient received Vit K this admission given supratherapeutic INR. Past Family History Family History Other Asthma Diabetes Past Surgical History Surgical History Hx of appendectomy Social History Smoking Status: Never smoker Do You Dip or Chew Tobacco: No Hx Alcohol Use: No Alcohol type: beer, wine and hard liquor alcohol intake frequency: a few times a month Hx Substance Use: No substance use type: does not use Physical Exam Vital Signs Last Vital Signs Temp 37.1 C 08/31/21 17:11 Pulse 112 H 08/31/21 17:11 Resp 20 08/31/21 17:11 BP 136/88 08/31/21 17:11 Pulse Ox 91 08/31/21 17:11 Testing Laboratory Results 08/31/21 09:44 08/31/21 09:28 PT 18.3 Seconds (9.0-12.0) H 08/31/21 09:28 INR 1.9 (0.9-1.1) H 08/31/21 09:28 APTT 37.6 Seconds (21.0-31.0) H 08/31/21 09:28 Urine Color Yellow 08/31/21 09:55 Urine Appearance Clear (Clear) 08/31/21 09:55 Urine pH 7.5 (4.5-7.5) 08/31/21 09:55 Ur Specific [place] 1.006 (1.000-1.030) 08/31/21 09:55 Urine Protein Negative (Negative) 08/31/21 09:55 Urine Glucose (UA) Negative (Negative) 08/31/21 09:55 Urine Ketones Negative (Negative) 08/31/21 09:55 Urine Nitrite Negative (Negative) 08/31/21 09:55 Ur Leukocyte Esterase Negative (Negative) 08/31/21 09:55 Urine WBC (Auto) 1-5 /hpf (0-5) 08/31/21 09:55 Urine RBC (Auto) 10-30 /hpf (0-4) H 08/31/21 09:55 U Hyaline Cast (Auto) 1-5 /lpf (0-5) 08/31/21 09:55 U Epithel Cells (Auto) 0-5 /lpf (0-5) 08/31/21 09:55 Urine Bacteria (Auto) Negative (Negative) 08/31/21 09:55 Laboratory Tests 08/31/21 08/31/21 09:28 09:44 WBC 7.48 Hgb 13.4 L Hct 37.6 L Plt Count 86 L PT 18.3 H INR 1.9 H APTT 37.6 H Of note, patient's sodium 132 on 02/11/21. Electrocardiogram Date: 08/31/21 DICTATED BY:Chris Hanson MD Test Reason : Blood Pressure : / mmHG Vent. Rate : 109 BPM Atrial Rate : 109 BPM P-R Int : 148 ms QRS Dur : 100 ms QT Int : 358 ms P-R-T Axes : 061 -39 110 degrees QTc Int : 482 ms Poor data quality, interpretation may be adversely affected Sinus tachycardia Left axis deviation Left ventricular hypertrophy with repolarization abnormality Abnormal ECG Chest X-Ray Date: 08/31/21 XR chest 1V portable CLINICAL HISTORY: fall TECHNIQUE: Single frontal radiograph of the chest was obtained. Comparison: Comparison is made to chest one view 02/10/2021 FINDINGS: No lines and tubes are seen. The cardiomediastinal silhouette is stable. The lungs are clear. No evidence of pleural effusion or pneumothorax. IMPRESSION: No acute chest disease. Echocardiogram Date: 07/10/20 LV is normal in size. Mild LVH. LV wall motion is normal. EF 65-70% Grade 1 DD Other Testing Lumbar spine CT: IMPRESSION: 1. There is a minimal and age indeterminant superior endplate compression deformity of L2. 2. No additional findings are concerning for acute fracture involving the lumbar spine. 3. There is a mild and age indeterminant inferior endplate compression deformity of T12. This was not seen on the 07/09/2020 lateral chest x-ray. Correlate for point tenderness. 4. Osteopenia and spondylotic change as above. 5. Perihepatic ascites is noted in the right upper quadrant. 6. Cholelithiasis and bilateral nephrolithiasis.
[2021-08-31] MEDS: PREGABALIN 75 MG CAP PO SCH (21:24)
[2021-08-31] MEDS: DOCUSATE SODIUM/SENNA 50/8.6MG TAB PO SCH (21:24)
[2021-09-01] MEDS: oxyCODONE HCL IR 5 MG TAB (IMMEDIATE RELEASE) PO PRN (05:52)
[2021-09-01] MEDS ORDERED: TRANEXAMIC ACID / 0.7% NACL 1,000 MG/100 ML BAG IV SCH ×2 (06:00→06:30)
[2021-09-01] MEDS ORDERED: ceFAZolin 2000MG 2,000 MG/15 ML SYR IV SCH (06:00)
[2021-09-01] MEDS ORDERED: BUPIVACAINE 0.5 % 5 MG/1 ML PF 10ML VIAL ONE (06:45)
[2021-09-01 08:04] LABS: Hematocrit (blood only) 30.2 % (42-52); Hemoglobin 10.5 g/dL (14.0-18.0); Mean Corpuscular Hgb Conc 34.8 g/dL (32-36); Mean Corpuscular Volume 112.3 fL (80-100); Mean Platelet Volume 10.4 fL (7.4-10.4); Platelet Count 76 K/uL (130-400); RDW Coefficient of Variation 14.7 % (11.5-14.5); RDW Standard Deviation 59.8 fL (36.4-46.3); Red Blood Count 2.69 M/uL (4.7-6.1); White Blood Count 9.94 K/uL (4.8-10.8)
[2021-09-01 08:08] LABS: INR 2.2 (0.9-1.1); Prothrombin Time 21.1 Seconds (9.0-12.0)
[2021-09-01 08:19] LABS: Albumin Globulin Ratio 0.6 (0.9-2); Albumin Level 2.2 gm/dl (3.4-5.0); BUN Creatinine Ratio 10.7 (10-20); Bilirubin,Total 10.8 mg/dl (0.2-1.0); Calcium 7.8 mg/dl (8.5-10.1); Creatinine Clr Calc Pharmacy 88.2 ml/min; Est GFR (African American) 102.1 ml/min; Est GFR (Non-African American) 88.1 ml/min; Potassium 3.6 mmol/L (3.5-5.1); Total Protein 6.2 gm/dl (6.0-8.3)
[2021-09-01] MEDS: ESCITALOPRAM OXALATE 10 MG TAB PO SCH (08:23)
[2021-09-01] MEDS: PREGABALIN 75 MG CAP PO SCH ×2 (08:23→22:36)
[2021-09-01] MEDS: GABAPENTIN 400 MG CAP PO SCH ×3 (08:23→22:41)
[2021-09-01] MEDS ORDERED: PHYTONADIONE 10 MG in SODIUM CHLORIDE 0.9% 50 ML IV STA (08:43)
--- NOTE | 2021-09-01 09:39 | Communication Note ---
Date of Service: September 01, 2021 The patient is scheduled for a hip fracture repair this afternoon with Dr. Meza. The patient has a history of cirrhosis with resultant coagulopathies. He received vitamin K twice since admission, but his INR has increased from 1.9 to 2.2. He remains thrombocytopenic with platelets of 76 down from 86. I spoke with Dr. Newman who recommended the patient receive 4 units of FFP prior to/during his surgery. Blood bank is thawing two units now and the floor will begin transfusing them as soon as they are ready. The patient will also receive TXA in the perioperative period.
--- NOTE | 2021-09-01 11:06 | History & Physical Bridge Note ---
Date of Service September 01, 2021 History & Physical Bridge Note I have examined the patient, reviewed the History & Physical and in the interval since the performance of the History & Physical I have noted the following changes of clinical significance: no changes noted
[2021-09-01] MEDS ORDERED: PROPOFOL IV EMULSION 10 MG/ML 20 ML VIAL IV ONE (11:46)
[2021-09-01] MEDS ORDERED: NEOSTIGMINE METHYLSULFATE 1 MG/ML 10ML VIAL ONE ×4 (11:46→15:06)
[2021-09-01] MEDS ORDERED: MIDAZOLAM HCL 1 MG/ML 2ML VIAL ONE (11:46)
[2021-09-01] MEDS ORDERED: fentaNYL citrate 100 MCG/2 ML VIAL ONE (11:46)
[2021-09-01] MEDS ORDERED: ONDANSETRON INJ 2 MG/ML 2 ML VIAL ONE (11:46)
[2021-09-01] MEDS ORDERED: DEXAMETHASONE SOD INJ 4 MG/ML VIAL ONE ×2 (11:46→14:05)
[2021-09-01] MEDS ORDERED: GLYCOPYRROLATE 0.2 MG/ML VIAL ONE ×4 (11:46→14:58)
[2021-09-01] MEDS ORDERED: LIDOCAINE 2% 2 ML VIAL/AMP(20MG/ML) INFIL ONE (11:46)
[2021-09-01] MEDS ORDERED: EPINEPHrine INJ 1 MG/ML AMP ONE (13:08)
[2021-09-01] MEDS ORDERED: BUPIVACAINE 0.5 % 5 MG/1 ML MPF 30ML VIAL ONE (13:08)
[2021-09-01] MEDS ORDERED: ATROPINE SULFATE 0.1 MG/ML 10ML SYR IV PRN (13:18)
[2021-09-01] MEDS ORDERED: HYDROmorphone INJ 1 MG/ML SYRINGE IV PRN (13:18)
[2021-09-01] MEDS ORDERED: LABETALOL HCL IV 5 MG/ML 20ML IV PRN (13:18)
[2021-09-01] MEDS ORDERED: fentaNYL citrate 100 MCG/2 ML VIAL IV PRN (13:18)
[2021-09-01] MEDS ORDERED: ONDANSETRON INJ 2 MG/ML 2 ML VIAL IV PRN (13:18)
[2021-09-01] MEDS ORDERED: ePHEDrine sulfate 50 MG/ML AMP IV PRN (13:18)
[2021-09-01] MEDS ORDERED: PHENYLEPHRINE 100MCG/ML 5ML SYR IV PRN (13:18)
--- NOTE | 2021-09-01 13:41 | Progress Notes ---
DATE OF SERVICE: 09/01/2021. SUBJECTIVE: A 71-year-old gentleman with multiple medical comorbidities, most significantly liver di sease, admitted with a left hip fracture. No new complaints today. Still having quite a bit of left hip and groin pain. No chest pain or shortness of breath. OBJECTIVE: VITAL SIGNS: Temperature 36.7. Vital signs are stable. PHYSICAL EXAMINATION: GENERAL: Shows a pleasant elderly male. He is lying in bed and looks reasonably comfortable. EXTREMITIES: Examination of the left leg reveals the leg to be slightly shortened and externally rot ated. He has got some diffuse edema in both legs. Marked pain with any type of hip motion. He is n eurologically intact. LABORATORY DATA: Hemoglobin 10.5, hematocrit 30.2. INR is 2.2. Electrolytes are stable. ASSESSMENT: A 71-year-old gentleman with end-stage liver cirrhosis with liver disease, with a left d isplaced femoral neck fracture. His INR actually went up since we gave him the vitamin K for unclear reasons. PLAN: We are going to proceed with a hip arthroplasty for fracture. He is getting FFP as recommende d by the blood bank. We did give him some extra vitamin K as well. I do think it is in his benefit to get this fixed rather than wait around until everything is corrected. The FFP should correct this . His platelets are low, but in an acceptable range and we do have platelets with the blood bank if needed. He is certainly at risk due to his medical comorbidities, but cannot go without fixing his h ip. We will continue DVT prophylaxis including TEDs and SCDs. Job ID: [id number]
[2021-09-01] MEDS ORDERED: HYDROmorphone INJ 2 MG/ML SYR/VIAL ONE (14:24)
[2021-09-01] MEDS ORDERED: ROCURONIUM BROMIDE 10 MG/ML 5 ML VIAL IV ONE (14:27)
[2021-09-01] MEDS ORDERED: SUGAMMADEX SODIUM 200 MG/2 ML VIAL IV ONE (15:25)
--- NOTE | 2021-09-01 15:27 | Operative Report ---
Post Operative Report Pre & Post Diagnosis Operation Date: 09/01/21 12:30 Pre-Op Diagnosis: Left displaced femoral neck/hip fracture Post-Op Diagnosis: Left displaced femoral neck/hip fracture I identified the patient and participated in the time-out.: Yes Procedure Operation Date: 09/01/21 12:30 Actual Procedures p Left Bipolar Hemiarthroplasty Cemented(Left) - Mervin Meza MD Surgeon Mervin Meza MD Supercalender Operator José Miguel Ellington PA-C Estimated Blood Loss 300 Findings Consistent with Post-Op Diagnosis Operative findings revealed a displaced femoral neck fracture. He had extensive hematoma posteriorly in the hip abductors as well as the external rotators. Fluids 1500 cc crystalloid, 4 units of fresh frozen plasma, 250 cc of albumin Specimens Left femoral head sent for pathology Drains None Anesthesia Type General Complications none Disposition Accompanied Patient To Recovery: Yes Indications Patient is a 71-year-old gentleman with multiple medical comorbidities most significantly end-stage liver disease due to liver cancer. Sustained a fall yesterday. He was admitted to the hospital with a displaced femoral neck fracture. Patient's been medically optimized and indicated for surgical management. Description of Procedure Operative implants consist of: 1. Eliazar LD/fracture size 14 hip fracture stem. 2. +3.5/28 mm articular ball. 3. 50 mm bipolar shell and liner. 4. Distal c centralizer. 5. Large cement restrictor. The patient was taken to the operating, identified, placed on the operating table supine position protectors were properly padded. IV antibiotics tried by anesthesia team. A general anesthetic was implemented. The patient was then placed in the right lateral decubitus position. An axillary roll was placed. A Stulberg hip positioner was used for positioning. Left hip and leg were then prepped and draped in usual sterile fashion after scrubbing the left leg with Hibiclens. A posterior lateral approach to the left hip was then performed through a curvilinear incision centered over the greater trochanter. Sharp dissection carried through the subcutaneous tissue down of the IT band gluteal fascia the IT band gluteal fascia incised longitudinally in line with skin incision. There is a large hematoma posteriorly upon entering the IT band. We evacuated this. The external rotators and piriformis muscle were then tagged and taken off the posterior aspect hip joint capsule. The hip joint capsule was then incised in a T fashion for later repair. Hip was internally rotated. Femoral neck osteotomy cut was made just below the fracture site. The femoral neck was then removed. Of the femur retracted anteriorly. The femoral head was removed and sized. I sized the acetabular to a size 50. We irrigated the wound extensively. Attention drawn the femur. The proximal femur was entered with a cookie-cutter followed by canal finder and lateralizing reamer. Then broached the femur progressing up to 14. Got a good fit with a 14. We trialed the hip and the +3.5 articular ball seem provide the most appropriate leg lengths and full stability. I would like to place these implants. All trial implants were removed. A cement restrictor was placed. A double batch [place] G cement was then mixed and injected in the canal. A size 14 LD/fracture femoral stem was placed with a distal centralizer and held it in about 10 degrees of anteversion. Once the cement hardened a +3.5/28 mm articu lar ball with a 50 mm bipolar shell and liner were placed and the hip was reduced. Is found to be fully stable in full extension and external rotation and flexion to 90 degrees internal rotation over 50 degrees. Attention drawn toward closing. The wound was irrigated with copious amounts of pulsatile lavage solution. The [place] posterior capsule was then closed with #2 Tycron suture in a figure-of- eight fashion. The external rotators were then reapproximated to the posterior hip abductors with #2 Tycron sutures. The IT band gluteal fascia then closed #1 PDS suture running fashion for subcutaneous tissue then closed 2 layers the deep layer #1 Vicryl suture in the subcutaneous tissues with 2-0 Dexon suture in a buried interrupted fashion. Skin was closed skin marti. Leg was then cleaned and dried a sterile dressing both Xeroform, 4 x 4's, ABD pad, foam tape was applied. The patient then brought out of general anesthesia and transferred to the recovery room in stable condition. Patient tolerated procedure well and there were no complications. José Miguel Ellington, my physician phlebotomist lab assistant, was present for the entire procedure. His assistance was essential and required for appropriate patient positioning, prepping and draping, surgical exposure, performing the technical details of the operation, placement the implants, closure of the wound, and placement of the sterile bandage. I attest to the content of the Intraoperative Record and any orders documented therein. Any exceptions are noted below.
[2021-09-01] MEDS ORDERED: METOPROLOL TARTRATE 1 MG/ML VIAL IV ONE ×3 (15:44→16:12)
[2021-09-01] MEDS ORDERED: METOPROLOL TARTRATE 1 MG/ML VIAL IV STA (16:14)
[2021-09-01] MEDS ORDERED: FUROSEMIDE 40 MG/4 ML VIAL IV ONE ×2 (16:59→17:01)
[2021-09-01] MEDS ORDERED: ALBUTEROL 0.083% NEBU SOLN 3 ML VIAL NEB PRN (17:00)
[2021-09-01] MEDS ORDERED: ALBUTEROL 0.083% NEBU SOLN 3 ML VIAL ONE (17:00)
[2021-09-01] MEDS ORDERED: ALBUTEROL 0.083% NEBU SOLN 3 ML VIAL NEB STA (17:00)
[2021-09-01 17:04] LABS: Base Excess ABG -1.2 mEq/L (-9-1.8); HCO3 ABG 28 mmol/L (19-24); Oxygen Saturation ABG 92.7 % (90-95); PCO2 ABG 72 mmHg (35-46); PO2 ABG 78 mmHg (80-95); pH ABG 7.21 (7.35-7.45)
--- NOTE | 2021-09-01 17:04 | XRay Report ---
XR chest 1V portable CLINICAL HISTORY: Hypoxia. COMPARISON STUDY: Chest radiograph August 31, 2021. FINDINGS: Lung volumes are mildly diminished. There is no pneumothorax. Suspected small bilateral ple ural effusions are present. There are bibasilar opacities which have developed. Interstitial thickeni ng has also developed. A right suprahilar density is present. This could reflect a dilated azygos vei n. Cardiomegaly is present. IMPRESSION: 1. Interval development of interstitial thickening suggestive of pulmonary edema. Right suprahilar de nsity could reflect a dilated azygos vein. 2. Suspected small bilateral pleural effusions with bibasilar opacities which could reflect atelectas is or consolidation. 3. Low lung volumes. ACT 112: Negative or not required by law. Electronically signed by: Jose Peraza M.D. 09/01/2021 5:03 PM
[2021-09-01 17:07] LABS: Allen Test Pos (Pos)
--- NOTE | 2021-09-01 17:32 | Anesthesiology Progress Note ---
Date of Service September 01, 2021 Anesthesia Post Procedure Vital Signs Vital Signs: Temp Pulse Pulse Pulse Resp BP BP 09/01/21 17:06 94 H 16 09/01/21 17:05 94 H 12 154/100 H 09/01/21 16:55 96 H 14 158/102 H 09/01/21 16:45 94 H 15 160/103 H 09/01/21 16:35 95 H 12 166/98 H 09/01/21 16:25 92 H 12 159/101 H 09/01/21 16:15 101 H 100 H 12 150/110 H 150/110 H 09/01/21 16:05 102 H 14 169/116 H 09/01/21 15:56 36.3 C L 101 H 20 140/106 H 09/01/21 15:55 102 H 18 09/01/21 13:20 37.5 C 109 H 20 118/72 09/01/21 12:50 36.7 C 105 H 18 09/01/21 12:36 36.8 C 105 H 18 09/01/21 12:16 37.0 C 110 H 16 122/72 09/01/21 12:15 37.0 C 110 H 18 122/72 09/01/21 12:02 37 C 108 H 20 09/01/21 11:30 36.8 C 105 H 20 107/63 09/01/21 11:00 37.1 C 104 H 18 105/66 09/01/21 10:45 36.9 C 96 H 18 116/76 09/01/21 10:41 36.9 C 105 H 18 116/76 09/01/21 10:27 37.0 C 102 H 18 119/72 09/01/21 09:48 36.7 C 104 H 20 09/01/21 09:30 36.9 C 97 H 20 09/01/21 09:10 36.8 C 104 H 18 115/71 09/01/21 08:11 36.8 C 108 H 17 113/68 09/01/21 03:15 36.7 C 101 H 16 103/66 09/01/21 03:13 08/31/21 23:01 08/31/21 21:46 36.8 C 104 H 18 105/67 08/31/21 19:47 08/31/21 19:46 37.2 C 91 H 18 BP Pulse Ox Pulse Ox 09/01/21 17:06 94 09/01/21 17:05 95 09/01/21 16:55 94 09/01/21 16:45 93 09/01/21 16:35 95 09/01/21 16:25 94 09/01/21 16:15 95 09/01/21 16:05 95 09/01/21 15:56 93 09/01/21 15:55 95 09/01/21 13:20 100 09/01/21 12:50 113/67 99 09/01/21 12:36 117/72 100 09/01/21 12:16 97 09/01/21 12:15 99 09/01/21 12:02 134/78 96 09/01/21 11:30 95 09/01/21 11:00 97 09/01/21 10:45 96 09/01/21 10:41 96 09/01/21 10:27 93 09/01/21 09:48 103/69 93 09/01/21 09:30 106/65 97 09/01/21 09:10 95 09/01/21 08:11 94 09/01/21 03:15 93 09/01/21 03:13 93 08/31/21 23:01 97 08/31/21 21:46 97 08/31/21 19:47 97 08/31/21 19:46 108/69 97 Pain Intensity Left Upper Leg: Pain Intensity: 1 Transfer of Care Handoff Completed per policy Notes Mental Status: see notes below Patient Amnestic to Procedure: Yes Nausea / Vomiting: adequately controlled Pain: adequately controlled Airway Patency, RR, SpO2: see Notes below BP & HR: stable & adequate Hydration State: stable & adequate Anesthetic Complications: no major complications apparent and Pt Satisfied with anesthetic care Notes: The patient underwent a general anesthetic for his hip fracture repair. He has liver failure with a significant coagulopathy so was transfused four units of FFP. He underwent a general anesthetic for the procedure. He was noted to be hyper and hypotensive during the surgery and became tachycardic near the end of the procedure. He received 1800 ml of LR and 150 ml albumin IV. He was reversed with neostigmine/glycopyrrolate followed by sugammadex. He was treated with metoprolol for tachycardia and hypertension. He was breathing well and appeared to be following commands for the CRNAs upon extubation. Soon after extubation he became obtunded in the OR and SpO2 dropped to the 70s. An oral airway was placed and two CRNAs bagged masked him and his SpO2 quickly carlene to the 90s. I was called to the OR and the decision was made to place him on Bipap in PACU. In the PACU his SpO2 has remained in the 90s. He has been sleepy but will open his eyes on command. His lungs have had some rhonchi bilaterally. A CXR was performed that showed some pulmonary edema as well as bilateral opacities. An ABG showed respiratory acidosis with pCO2 of 72. The patient was given a breathing treatment as well as Lasix IV. The patient likely has some residual anesthetic gas which combined with his underlying liver disease and hypercarbia is making him obtunded. Dr. Kelly came to evaluate the patient and will transfer the patient to the PCU. I spoke to Dr. Madrigal about the patient and he recommends to see how the patient does with the diuretic. Dr. Salas is aware of the patient and will take over his care while the patient remains in the PACU.
--- NOTE | 2021-09-01 17:56 | XRay Report ---
XR hip LT min 2V CLINICAL HISTORY: Post-Operative implant position COMPARISON: Pelvis and left femur radiographs August 31, 2021. FINDINGS: Alignment of the left hip arthroplasty is anatomic. No periprosthetic fracture or unexpect ed radiopaque foreign bodies are present. There are skin marti. IMPRESSION: Expected findings following left hip arthroplasty. ACT 112: Negative or not required by law. Electronically signed by: Jose Peraza M.D. 09/01/2021 5:55 PM
--- NOTE | 2021-09-01 18:22 | Hospitalist Progress Note ---
Date of Service September 01, 2021 Assessment & Plan (1) Fall: (2) Closed fracture of left hip: Plan: Patient is a 71 yr male with H/O cirrhosis of liver with ascites in setting of hepatocellular carcinoma diagnosed in January 2021, peripheral neuropathy, thrombocytopenia and other medical problems listed below who presents after fall at work earlier today and was found to have . Acute left femoral neck fracture Secondary to fall Femur XR showed acute fracture of the left femoral neck CXR with no acute cardiac process Underwent cardiac eval last week as potential liver transplant candidate with normal dobutamine stress test Supratherapeutic INR in setting of liver disease 2.2 S/P Left Bipolar Hemiarthroplasty POD #0 Pain control Continue wound Care PT/OT when appropriate Acute pulmonary edema Acute respiratory failure with hypoxia, hypercapnia developed post operatively CXR:Interval development of interstitial thickening suggestive of pulmonary edema. Right suprahilar density could reflect a dilated azygos vein. Suspected small bilateral pleural effusions with bibasilar opacities which could reflect atelectasis or consolidation. Low lung volumes. Likely secondary to transfusions We will give Lasix 60 mg X1 today Repeat ABG in 1 hr Monitor volume status Continue BiPAP for now Consider transfer to ICU if no improvement with current management Discussed with bag machine adjuster on-call Dr. Madrigal (3) Supratherapeutic INR: Plan: INR 2.2 in setting of cirrhosis Prior hospitalist discussed with Dr. Newman S/P IV Vitamin K, Plasma (4) Cirrhosis of liver with ascites: (5) Hepatocellular carcinoma: Plan: HCC diagnosed in January 2021, [place] [facility] [place] Tbili 9.5, AST 57, ALT 33, Alk phos 173, plt 86 Patient is a liver transplant candidate who was scheduled for IR procedure for directed chemotherapy Continue lasix, spironolactone. Low sodium diet Monitor volume status closely Monitor CMP Compression deformity T12, L2: -Lumbar CT:There is a minimal and age indeterminant superior endplate compression deformity of L2. No additional findings are concerning for acute fracture involving the lumbar spine. There is a mild and age indeterminant inferior endplate compression deformity of T12. This was not seen on the 07/09/2020 lateral chest x-ray. Correlate for point tenderness. -Pain control Ortho on board (6) Thrombocytopenia: Plan: Platelets of 86>76 k No active bleeding issues Monitor (7) Peripheral neuropathy: Plan: Continue gabapentin, lyrica DVT Px: SCDs Re: Surgery, Thrombocytopenia Code status: FULL CODE Admission and Anticipated Discharge Date Admission Date: August 31, 2021 Subjective Patient is seen and examined at bedside States having left hip pain this morning which worsens with movement Denies any chest pain, shortness of breath, dizziness, nausea, abdominal pain Planned for surgery today Updated patient's over the phone Review of Systems Review of Systems: All systems reviewed & are unremarkable except as noted in Subjective Physical Exam Physical Exam: Physical Exam: Vitals signs as noted above General Appearance:Moderately built and nourished, no apparent distress Head: normocephalic, Atraumatic Eyes: normal inspection, EOMI, +Icteric Neck: supple, Trachea midline Respiratory/Chest: Normal breath sounds, CTA, No accessory muscle use Cardiovascular: S1, S2, No murmur Abdomen/GI:Soft, Non tender, Bowel sounds present Extremities/Musculoskeletal:normal inspection, B/L LE edema, Left hip tender, decreased ROM Neurologic/Psych:AAOX3, grossly no focal neurological deficits Skin: normal color, warm Results & Data Results & Data ([facility]) Vital Signs (Past 12 Hours) Vital Signs Temp Pulse Pulse Pulse Resp BP BP 09/01/21 17:45 97 H 14 119/93 09/01/21 17:30 95 H 14 137/91 09/01/21 17:15 36.2 C L 95 H 12 149/96 H 09/01/21 17:06 94 H 16 09/01/21 17:05 94 H 12 154/100 H 09/01/21 16:55 96 H 14 158/102 H 09/01/21 16:45 94 H 15 160/103 H 09/01/21 16:35 95 H 12 166/98 H 09/01/21 16:25 92 H 12 159/101 H 09/01/21 16:15 101 H 100 H 12 150/110 H 150/110 H 09/01/21 16:05 102 H 14 169/116 H 09/01/21 15:56 36.3 C L 101 H 20 140/106 H 09/01/21 15:55 102 H 18 09/01/21 13:20 37.5 C 109 H 20 118/72 09/01/21 12:50 36.7 C 105 H 18 09/01/21 12:36 36.8 C 105 H 18 09/01/21 12:16 37.0 C 110 H 16 122/72 09/01/21 12:15 37.0 C 110 H 18 122/72 09/01/21 12:02 37 C 108 H 20 09/01/21 11:30 36.8 C 105 H 20 107/63 09/01/21 11:00 37.1 C 104 H 18 105/66 09/01/21 10:45 36.9 C 96 H 18 116/76 09/01/21 10:41 36.9 C 105 H 18 116/76 09/01/21 10:27 37.0 C 102 H 18 119/72 09/01/21 09:48 36.7 C 104 H 20 09/01/21 09:30 36.9 C 97 H 20 09/01/21 09:10 36.8 C 104 H 18 115/71 09/01/21 08:11 36.8 C 108 H 17 113/68 BP Pulse Ox 09/01/21 17:45 93 09/01/21 17:30 92 09/01/21 17:15 93 09/01/21 17:06 94 09/01/21 17:05 95 09/01/21 16:55 94 09/01/21 16:45 93 09/01/21 16:35 95 09/01/21 16:25 94 09/01/21 16:15 95 09/01/21 16:05 95 09/01/21 15:56 93 09/01/21 15:55 95 09/01/21 13:20 100 09/01/21 12:50 113/67 99 09/01/21 12:36 117/72 100 09/01/21 12:16 97 09/01/21 12:15 99 09/01/21 12:02 134/78 96 09/01/21 11:30 95 09/01/21 11:00 97 09/01/21 10:45 96 09/01/21 10:41 96 09/01/21 10:27 93 09/01/21 09:48 103/69 93 09/01/21 09:30 106/65 97 09/01/21 09:10 95 09/01/21 08:11 94 Laboratory Results Short CBC 09/01/21 Range/Units 07:37 WBC 9.94 (4.8-10.8) K/uL Hgb 10.5 L (14.0-18.0) g/dL Hct 30.2 L (42-52) % Plt Count 76 L (130-400) K/uL BMP 09/01/21 07:37 Sodium 130 L Potassium 3.6 Chloride 93 L Carbon Dioxide 33 H BUN 9 Creatinine 0.84 Glucose 166 H Calcium 7.8 L Liver Function 09/01/21 Range/Units 07:37 Total Bilirubin 10.8 H (0.2-1.0) mg/dl AST 45 H (13-39) U/L ALT 27 (7-52) U/L Alkaline Phosphatase 129 H (34-104) U/L Albumin 2.2 L (3.4-5.0) gm/dl (1) Fall Encounter type: initial encounter Qualified Code(s): W19.XXXA - Unspecified fall, initial encounter (2) Closed fracture of left hip Encounter type: initial encounter Qualified Code(s): S72.002A - Fracture of unspecified part of neck of left femur, initial encounter for closed fracture
[2021-09-01 18:49] LABS: Base Excess ABG 1.7 mEq/L (-9-1.8); HCO3 ABG 29 mmol/L (19-24); Oxygen Saturation ABG 97.9 % (90-95); PCO2 ABG 64 mmHg (35-46); PO2 ABG 116 mmHg (80-95); pH ABG 7.28 (7.35-7.45)
[2021-09-01 19:40] LABS: Allen Test Pos (Pos)
--- NOTE | 2021-09-01 19:48 | Anesthesiology Progress Note ---
Date of Service September 01, 2021 Anesthesia Post Procedure Vital Signs Vital Signs: Temp Pulse Pulse Pulse Resp BP BP 09/01/21 19:30 89 12 108/77 09/01/21 19:00 92 H 12 128/85 09/01/21 18:45 93 H 14 132/83 09/01/21 18:30 94 H 12 133/83 09/01/21 18:00 98 H 16 146/93 H 09/01/21 17:45 97 H 14 119/93 09/01/21 17:30 95 H 14 137/91 09/01/21 17:15 97.2 F L 95 H 12 149/96 H 09/01/21 17:06 94 H 16 09/01/21 17:05 94 H 12 154/100 H 09/01/21 16:55 96 H 14 158/102 H 09/01/21 16:45 94 H 15 160/103 H 09/01/21 16:35 95 H 12 166/98 H 09/01/21 16:25 92 H 12 159/101 H 09/01/21 16:15 101 H 100 H 12 150/110 H 150/110 H 09/01/21 16:05 102 H 14 169/116 H 09/01/21 15:56 97.3 F L 101 H 20 140/106 H 09/01/21 15:55 102 H 18 09/01/21 13:20 99.5 F 109 H 20 118/72 09/01/21 12:50 98.1 F 105 H 18 09/01/21 12:36 98.2 F 105 H 18 09/01/21 12:16 98.6 F 110 H 16 122/72 09/01/21 12:15 98.6 F 110 H 18 122/72 09/01/21 12:02 98.6 F 108 H 20 09/01/21 11:30 98.2 F 105 H 20 107/63 09/01/21 11:00 98.8 F 104 H 18 105/66 09/01/21 10:45 98.4 F 96 H 18 116/76 09/01/21 10:41 98.4 F 105 H 18 116/76 09/01/21 10:27 98.6 F 102 H 18 119/72 09/01/21 09:48 98.1 F 104 H 20 09/01/21 09:30 98.4 F 97 H 20 09/01/21 09:10 98.2 F 104 H 18 115/71 09/01/21 08:11 98.2 F 108 H 17 113/68 09/01/21 03:15 98.1 F 101 H 16 103/66 09/01/21 03:13 08/31/21 23:01 08/31/21 21:46 98.2 F 104 H 18 105/67 08/31/21 19:47 08/31/21 19:46 99.0 F 91 H 18 BP Pulse Ox Pulse Ox 09/01/21 19:30 96 09/01/21 19:00 93 09/01/21 18:45 99 09/01/21 18:30 97 09/01/21 18:00 94 09/01/21 17:45 93 09/01/21 17:30 92 09/01/21 17:15 93 09/01/21 17:06 94 09/01/21 17:05 95 09/01/21 16:55 94 09/01/21 16:45 93 09/01/21 16:35 95 09/01/21 16:25 94 09/01/21 16:15 95 09/01/21 16:05 95 09/01/21 15:56 93 09/01/21 15:55 95 09/01/21 13:20 100 09/01/21 12:50 113/67 99 09/01/21 12:36 117/72 100 09/01/21 12:16 97 09/01/21 12:15 99 09/01/21 12:02 134/78 96 09/01/21 11:30 95 09/01/21 11:00 97 09/01/21 10:45 96 09/01/21 10:41 96 09/01/21 10:27 93 09/01/21 09:48 103/69 93 09/01/21 09:30 106/65 97 09/01/21 09:10 95 09/01/21 08:11 94 09/01/21 03:15 93 09/01/21 03:13 93 08/31/21 23:01 97 08/31/21 21:46 97 08/31/21 19:47 97 08/31/21 19:46 108/69 97 Pain Intensity Left Upper Leg: Pain Intensity: 1 Transfer of Care Handoff Completed per policy Notes Mental Status: alert / awake / arousable and participated in evaluation Patient Amnestic to Procedure: Yes Nausea / Vomiting: adequately controlled Pain: adequately controlled Airway Patency, RR, SpO2: see Notes below BP & HR: stable & adequate Hydration State: stable & adequate Anesthetic Complications: see Notes below and Pt Satisfied with anesthetic care Notes: Patient noted to be fluid overloaded with hypercapnic respiratory failure and somnolence postoperatively, improving with BIPAP and diuretic therapy. Appropriate for transfer to PCU with low threshold for potential ICU admission if his clinical status were to deteriorate.
[2021-09-01] MEDS ORDERED: traZODone HCL 50 MG TAB PO PRN (22:32)
[2021-09-01] MEDS: FUROSEMIDE 40 MG TAB PO SCH ×2 (22:34→22:41)
[2021-09-01] MEDS: POTASSIUM CHLORIDE 10 MEQ TABCR PO SCH (22:35)
[2021-09-01] MEDS: SPIRONOLACTONE 25 MG TAB PO SCH (22:35)
[2021-09-01] MEDS: DOCUSATE SODIUM/SENNA 50/8.6MG TAB PO SCH (22:36)
[2021-09-02 07:13] LABS: Hematocrit (blood only) 26.3 % (42-52); Hemoglobin 8.8 g/dL (14.0-18.0); Mean Corpuscular Hemoglobin 39.1 pg (25-34); Mean Corpuscular Hgb Conc 33.5 g/dL (32-36); Mean Corpuscular Volume 116.9 fL (80-100); RDW Coefficient of Variation 14.9 % (11.5-14.5); RDW Standard Deviation 62.8 fL (36.4-46.3); Red Blood Count 2.25 M/uL (4.7-6.1); White Blood Count 12.83 K/uL (4.8-10.8)
[2021-09-02 07:15] LABS: Prothrombin Time 19.1 Seconds (9.0-12.0)
[2021-09-02 07:45] LABS: Albumin Globulin Ratio 0.8 (0.9-2); Albumin Level 2.8 gm/dl (3.4-5.0); BUN Creatinine Ratio 15.5 (10-20); Bilirubin,Total 13.1 mg/dl (0.2-1.0); Calcium 8.7 mg/dl (8.5-10.1); Creatinine Clr Calc Pharmacy 57.7 ml/min; Est GFR (African American) 64.2 ml/min; Est GFR (Non-African American) 55.4 ml/min; Globulin 3.7 gm/dl (2.5-4.0); Potassium 4.7 mmol/L (3.5-5.1); Total Protein 6.5 gm/dl (6.0-8.3)
[2021-09-02 07:49] LABS: Basophils # (auto) 0.01 K/uL (0-0.2); Basophils % (auto) 0.1 %; Immature Granulocytes # (auto) 0.04 K/uL (0.00-0.02); Immature Granulocytes % (auto) 0.3 %; Lymphocytes # (auto) 1.07 K/uL (1.2-3.4); Lymphocytes % (auto) 8.3 %; Macrocytosis Present; Mean Platelet Volume 10.5 fL (7.4-10.4); Monocytes # (auto) 1.43 K/uL (0.11-0.59); Monocytes % (auto) 11.1 %; Neutrophils # (auto) 10.28 K/uL (1.4-6.5); Neutrophils % (auto) 80.2 %; Platelet Count 68 K/uL (130-400); Platelet Estimate Decreased (Normal); Polychromasia 1+
[2021-09-02] MEDS: FUROSEMIDE 40 MG TAB PO SCH ×2 (08:15→16:40)
[2021-09-02] MEDS: SPIRONOLACTONE 25 MG TAB PO SCH (08:15)
[2021-09-02] MEDS: POTASSIUM CHLORIDE 10 MEQ TABCR PO SCH (08:16)
[2021-09-02] MEDS: GABAPENTIN 400 MG CAP PO SCH ×3 (08:16→21:36)
[2021-09-02] MEDS: ESCITALOPRAM OXALATE 10 MG TAB PO SCH (08:17)
[2021-09-02] MEDS: PREGABALIN 75 MG CAP PO SCH ×2 (08:20→21:36)
--- NOTE | 2021-09-02 11:31 | Progress Notes ---
DATE OF SERVICE: 09/02/2021. SUBJECTIVE: A 71-year-old gentleman postoperative day 1 from a left cemented bipolar hip arthroplast y for fracture. He is doing pretty well this morning. Not really having much pain. No chest pain o r shortness of breath. Not feeling dizzy or lightheaded. OBJECTIVE: VITAL SIGNS: Temperature 36.7. Vital signs are stable. PHYSICAL EXAMINATION: GENERAL: Shows a pleasant, elderly male. He is sitting up in bed and looks reasonably comfortable. He has got his normal jaundice kind of appearance. EXTREMITIES: Examination of the left hip and leg reveals the leg to be equal in length. His dressin g is clean, dry and intact. No detectable drainage. His thigh is soft and supple. He can dorsiflex and plantarflex his foot appropriately. He is neurologically intact. LABORATORY DATA: Hemoglobin 8.8. Hematocrit 26.3. White cell count 12.83. INR 2.0. Electrolytes are stable. ASSESSMENT: A 71-year-old gentleman with a pretty significant underlying cirrhosis and liver failure from liver cancer. Postoperative day 1 from a left cemented bipolar hip arthroplasty for fracture. Orthopedically, he is doing pretty well. His hemoglobin dropped some, which is not unexpected, but appears stable and he is asymptomatic. His pain seems to be controlled. Hip is located. He is neur ologically intact. PLAN: 1. DVT prophylaxis includes thigh-high TEDs and SCDs. Really not a candidate for aggressive anticoa gulation due to his elevated INR along with low platelets. 2. PT/OT. He can weight bear as tolerated. He does need to follow total hip precautions on the lef t hip. 3. Pain control, seems to be doing okay with current pain regimen. 4. Disposition: He is orthopedically okay for discharge any time medically stable. He would be bes t to go to a rehab facility. I need to see him back in 2-3 weeks out from his surgery date. Any ort hopedic questions can be directed to me at [phone]. Job ID: [id number]
--- NOTE | 2021-09-02 11:40 | Ultrasound Report ---
US liver HISTORY: 71 years-old Male Hyperbilirubinemia COMPARISON: Abdominal ultrasound 07/09/2020, MRCP 07/10/2020 TECHNIQUE: Multiple real-time significant images of the abdominal right upper quadrant were obtained assessing grayscale appearance and color flow FINDINGS: Cirrhotic morphology of the liver. No hepatic mass identified. Pancreas is obscured by bowel gas. Sma ll volume of right upper quadrant ascites. The common bile duct is dilated at 1 cm, previously 5 mm. Cholelithiasis with gallbladder wall thickening measuring up to 6 mm. Sonographic Monreal sign was not reported. Patent portal vein. The imaged right kidney is unremarkable without hydronephrosis. IMPRESSION: 1. Cholelithiasis with gallbladder wall thickening which may be secondary to chronic liver disease ve rsus acute cholecystitis. Correlation with laboratory analysis and clinical presentation recommended. 2. Mild dilation of the common bile duct is new from prior. Correlate with serum bilirubin to exclude biliary obstruction. 3. Cirrhotic liver disease with abdominal ascites. ACT 112: Negative or not required by law. The above report was generated using voice recognition software. It may contain grammatical, syntax o r spelling errors. Electronically signed by: Aaron Peck M.D. 09/02/2021 11:39 AM
--- NOTE | 2021-09-02 12:56 | Gastrointestinal Consultation ---
Date of Consultation September 02, 2021 Assessment & Plan (1) Cirrhosis of liver with ascites: (2) Hepatocellular carcinoma: (3) Closed fracture of left hip: Pt is a 71 y/o admitted w L hip fracture after a fall, s/p L hemiarthroplasty on 09/01. He has hx of cirrhosis, HCC on segment II liver - was to undergo IR embolization of this tomorrow but cancelled due to admission. His Tbili is elevated from his baseline 9->13. He only needs Echo saline study to complete pre-liver transplant evaluation and then anticipate to be re-presented in liver transplant committee for listing. MELD: 27 - Repeat MELD labs - Obtain MRCP to r/o biliary obstruction (elevated Tbili w gallstones). If positive, will plan for ERCP - Discussed with primary team to obtain Echo saline study while pt is admitted, update MELD labs and will fax results to his human resources benefits coordinator once obtained so he can be presented again for listing. Supervising Physician Co-Signing Physician Notes 71 yo male with a history of cirhosis, hcc in segment ii being followed by [facility] transplant, admited to [facility] 2 days ago after a fall s/p left hemiarthroplasty on 09/01. Currently he is doing well postoperatively, received cefazolin during surgery. MELD is naren 27 based on labs today A + blood type [facility] transplant team aware of his current admission. Given elevated wbc count and tb and abd gladis findings of dilated cbd, MRCP has been done. He has baseline hypotension from cirrhosis however if he spikes a fever and or drops his bp further and or hr rises, consider broad spectrum abx empirically until MRCP results return. Blood cultures, ua, ucx should be sent for completeness given his elevated wbc count and given he is a near transplant candidate. Echo with saline study if possible while here given that is the last portion of his transplant workup that needs done to get listed. History of Present Illness Reason for Consultation: Hyperbilirubinemia Requesting Physician: Dr. Humphrey Kelly Attending Physician: Dr. Solange Gill History of Present Illness Pt is a 71 yo male ,currently admitted after a fall, sustained fracture to L hip s/p L hemiarthroplasty on 09/01. GI consulted for elevated Tbili, currently 13. Pt has hx of cirrhosis (unknown etiology) and HCC on liver segment II. He was scheduled for IR intervention at [facility] (oil then followed by chemoembolization) tomorrow but due to admission here, this is cancelled. He had been evaluated by [facility] Liver transplant team, just need to complete Echo w saline study before presented back to the Transplant Committee with the anticipation to list him for liver transplant. He feels weak today but denies fever, chills, CP, SOB, abd pain, n/v. Denies changes in his bowel habits such as diarrhea symptoms. He just completed u/s of abd, result pending. Allergies Allergy/AdvReac Type Severity Reaction Status Date / Time Sulfa (Sulfonamide Allergy Mild Rash Verified 08/31/21 12:02 Antibiotics) morphine AdvReac Intermediate crazy Verified 08/31/21 12:02 Home Medications Medication Instructions Recorded Confirmed Type spironolactone 25 mg tablet 25 mg PO QAM 02/05/21 08/31/21 History trazodone 50 mg tablet 25 mg PO HS PRN 02/05/21 08/31/21 History escitalopram oxalate 5 mg tablet 5 mg PO QAM 08/31/21 08/31/21 History furosemide 40 mg tablet 40 mg PO BID 08/31/21 08/31/21 History gabapentin 400 mg capsule 400 mg PO TID 08/31/21 08/31/21 History oxycodone 5 mg tablet 5 mg PO Q4H PRN 08/31/21 08/31/21 History potassium chloride 10 mEq 10 meq PO QAM 08/31/21 08/31/21 History tablet,extended release(part/cryst) pregabalin 75 mg capsule (Lyrica) 75 mg PO BID 08/31/21 08/31/21 History Patient History Medical History Abnormal LFTs Adhesive capsulitis of left shoulder Anemia Cirrhosis of liver with ascites Edema, peripheral Fracture of proximal humerus Hepatocellular carcinoma Peripheral neuropathy Thrombocytopenia Surgical History Hx of appendectomy Family History Other Asthma Diabetes Social History Smoking Status: Never smoker Second Hand Exposure: No; Do You Dip or Chew Tobacco: No; Tobacco Cessation Education Requested by Patient: No Hx Alcohol Use: No Hx Substance Use: No Preferred Language: Tajik Communication Ability: Effective Visual Impairment: Partially Limited Hearing Ability: Normal Educational Interpreter Required: No Beliefs That Will Affect Care: Buddhism Current Living Situation: Spouse Current Living Situation Comment: Feels Safe at Home: Yes Safety Concerns: Feels Safe At This Time Assistive Devices: Oxygen - Continuous and Walker Review of Systems Review of Systems: All systems reviewed & are unremarkable except as noted in HPI & below Physical Exam Constitutional: WD/WN, vitals as above well groomed, cooperative and comfortable Eyes: icteric sclera, PERRLA, EOMs intact ENMT: external ear and nose normal, oropharynx normal Respiratory: normal respiratory effort, lungs clear to auscultation Cardiovascular: RRR, no murmur, no edema Gastrointestinal (Abdomen): Mild distension, BS present, non tender Skin: no rashes, warm and dry + jaundice Neurologic: Motor/Sensory: no asterixis Psychiatric: A+Ox3, euthymic affect Lymphatic: no lymphedema Results & Data ([facility]) Vital Signs (Past 12 Hours) Vital Signs Temp Pulse Pulse Resp BP BP Pulse Ox 09/02/21 11:00 09/02/21 10:39 36.7 C 89 16 93/53 L 97 09/02/21 09:40 90 99/62 L 90 09/02/21 08:07 36.5 C 86 16 96/54 L 95 09/02/21 08:00 86 09/02/21 07:16 36.6 C 83 19 101/61 98 09/02/21 07:00 09/02/21 03:40 72 15 99 09/02/21 03:05 36.5 C 88 18 106/71 97 09/02/21 01:15 82 16 104/70 94 Pulse Ox 09/02/21 11:00 98 09/02/21 10:39 09/02/21 09:40 09/02/21 08:07 09/02/21 08:00 09/02/21 07:16 09/02/21 07:00 94 09/02/21 03:40 09/02/21 03:05 09/02/21 01:15 (1) Closed fracture of left hip Encounter type: initial encounter Qualified Code(s): S72.002A - Fracture of unspecified part of neck of left femur, initial encounter for closed fracture
[2021-09-02] MEDS: KETOROLAC TROMETHAMINE 10 MG TABLET PO PRN (14:16)
--- NOTE | 2021-09-02 17:18 | Hospitalist Progress Note ---
Date of Service September 02, 2021 Assessment & Plan (1) Fall: (2) Closed fracture of left hip: Plan: Patient is a 71 yr male with H/O cirrhosis of liver with ascites in setting of hepatocellular carcinoma diagnosed in January 2021, peripheral neuropathy, thrombocytopenia and other medical problems listed below who presents after fall at work earlier today and was found to have . Acute left femoral neck fracture Secondary to fall Acute blood loss anemia-Post Operative --Femur XR showed acute fracture of the left femoral neck --CXR with no acute cardiac process Underwent cardiac eval last week as potential liver transplant candidate with normal dobutamine stress test Supratherapeutic INR in setting of liver disease 2.2 S/P Left Bipolar Hemiarthroplasty by Dr.James Meza on 09/01/21 Pain control Continue wound Care Continue PT/OT Needs rehab placement Needs follow-up with orthopedic surgery in 2 to 3 weeks upon discharge Acute pulmonary edema Acute respiratory failure with hypoxia, hypercapnia developed post operatively CXR:Interval development of interstitial thickening suggestive of pulmonary edema. Right suprahilar density could reflect a dilated azygos vein. Suspected small bilateral pleural effusions with bibasilar opacities which could reflect atelectasis or consolidation. Low lung volumes. Likely secondary to transfusions in setting of cirrhosis history Received 1 dose of Lasix 60 mg Monitor volume status Currently on 1-2 liters supplemental oxygen Continue home diuretics Monitor (3) Supratherapeutic INR: Plan: INR 2.2 in setting of cirrhosis Prior hospitalist discussed with Dr. Newman S/P IV Vitamin K, Plasma (4) Cirrhosis of liver with ascites: (5) Hepatocellular carcinoma: Plan: HCC diagnosed in January 2021, following with [facility] hepatology. Tbili 9.5, AST 57, ALT 33, Alk phos 173, plt 86 Patient is a liver transplant candidate who was scheduled for IR procedure for directed chemotherapy Continue lasix, spironolactone. Low sodium diet Hyperbilirubinemia Appreciate GI input Obtain MRCP to rule out biliary obstruction Monitor LFTs Compression deformity T12, L2: -Lumbar CT:There is a minimal and age indeterminant superior endplate compression deformity of L2. No additional findings are concerning for acute fracture involving the lumbar spine. There is a mild and age indeterminant inferior endplate compression deformity of T12. This was not seen on the 07/09/2020 lateral chest x-ray. Correlate for point tenderness. -Pain control Ortho on board (6) Thrombocytopenia: Plan: Platelets of 86>76>68 K Monitor (7) Peripheral neuropathy: Plan: Continue gabapentin, lyrica DVT Px: SCDs Re: Surgery, Thrombocytopenia, Anemia, Increased INR Code status: FULL CODE Admission and Anticipated Discharge Date Admission Date: August 31, 2021 Subjective Patient is seen and examined at bedside Denies any significant left hip pain at surgical site States having back pain early this morning Discussed with GI today Also denies any chest pain, dyspnea, dizziness, nausea, abdominal pain Review of Systems Review of Systems: All systems reviewed & are unremarkable except as noted in Subjective Physical Exam Physical Exam: Physical Exam: Vitals signs as noted above General Appearance:Moderately built and nourished, no apparent distress Head: normocephalic, Atraumatic Eyes: normal inspection, EOMI, +Icteric Neck: supple, Trachea midline Respiratory/Chest: Normal breath sounds, CTA, No accessory muscle use Cardiovascular: S1, S2, No murmur Abdomen/GI:Soft, Non tender, Bowel sounds present Extremities/Musculoskeletal:normal inspection, B/L LE edema, Left hip surgical site in dressing Neurologic/Psych:AAOX3, grossly no focal neurological deficits Skin: normal color, warm Results & Data Results & Data ([facility]) Vital Signs (Past 12 Hours) Vital Signs Temp Pulse Pulse Resp BP BP Pulse Ox 09/02/21 16:29 93/53 L 09/02/21 15:55 37.1 C 94 H 19 90/51 L 92 09/02/21 15:00 09/02/21 14:00 37.1 C 94 H 94 09/02/21 11:00 09/02/21 10:39 36.7 C 89 16 93/53 L 97 09/02/21 09:40 90 99/62 L 90 09/02/21 08:07 36.5 C 86 16 96/54 L 95 09/02/21 08:00 86 09/02/21 07:16 36.6 C 83 19 101/61 98 09/02/21 07:00 Pulse Ox 09/02/21 16:29 09/02/21 15:55 09/02/21 15:00 94 09/02/21 14:00 09/02/21 11:00 98 09/02/21 10:39 09/02/21 09:40 09/02/21 08:07 09/02/21 08:00 09/02/21 07:16 09/02/21 07:00 94 Laboratory Results Short CBC 09/02/21 Range/Units 06:32 WBC 12.83 H (4.8-10.8) K/uL Hgb 8.8 L (14.0-18.0) g/dL Hct 26.3 L (42-52) % Plt Count 68 L (130-400) K/uL BMP 09/02/21 06:32 Sodium 135 L Potassium 4.7 D Chloride 93 L Carbon Dioxide 28 BUN 20 Creatinine 1.29 D Glucose 162 H Calcium 8.7 Liver Function 09/02/21 Range/Units 06:32 Total Bilirubin 13.1 H (0.2-1.0) mg/dl AST 46 H (13-39) U/L ALT 25 (7-52) U/L Alkaline Phosphatase 120 H (34-104) U/L Albumin 2.8 L (3.4-5.0) gm/dl (1) Fall Encounter type: initial encounter Qualified Code(s): W19.XXXA - Unspecified fall, initial encounter (2) Closed fracture of left hip Encounter type: initial encounter Qualified Code(s): S72.002A - Fracture of unspecified part of neck of left femur, initial encounter for closed fracture
--- NOTE | 2021-09-02 17:21 | Anesthesiology Consultation ---
Date of Service September 02, 2021 Assessment & Plan (1) Encounter for pre-operative examination: Chart Review Chart Review: Acceptable Risk for Surgery (evaluate respiratory status in AM) History Surgery Operation Date: 09/01/21 12:30 Proposed Procedures p Left Bipolar Hemiarthroplasty Cemented - Mervin Meza MD Operation Date: 09/03/21 08:35 Proposed Procedures p Endoscopic Retrograde Cholangiopancreatogram - Tyree Castellanos DO Height/Weight Height: 5 ft 9 in Weight: 88 kg Allergies Allergy/AdvReac Type Severity Reaction Status Date / Time Sulfa (Sulfonamide Allergy Mild Rash Verified 08/31/21 12:02 Antibiotics) morphine AdvReac Intermediate crazy Verified 08/31/21 12:02 Medications Home Medications Medication Instructions Recorded Confirmed Last Taken spironolactone 25 mg tablet 25 mg PO QAM 02/05/21 08/31/21 08/31/21 trazodone 50 mg tablet 25 mg PO HS PRN 02/05/21 08/31/21 Unknown escitalopram oxalate 5 mg tablet 5 mg PO QAM 08/31/21 08/31/21 08/31/21 furosemide 40 mg tablet 40 mg PO BID 08/31/21 08/31/21 08/31/21 gabapentin 400 mg capsule 400 mg PO TID 08/31/21 08/31/21 08/31/21 oxycodone 5 mg tablet 5 mg PO Q4H PRN 08/31/21 08/31/21 Unknown potassium chloride 10 mEq 10 meq PO QAM 08/31/21 08/31/21 08/31/21 tablet,extended release(part/cryst) pregabalin 75 mg capsule (Lyrica) 75 mg PO BID 08/31/21 08/31/21 Unknown Active Medications Generic Name Dose Route Start Last Admin Trade Name Freq PRN Reason Stop Dose Admin Escitalopram Oxalate 5 mg 09/01/21 09:00 09/02/21 08:17 Escitalopram Oxalate 10 Mg Tab PO 10/01/21 08:59 5 mg QAM MURALI Administration Furosemide 40 mg 08/31/21 18:00 09/02/21 16:40 Furosemide 40 Mg Tab PO 09/30/21 17:59 40 mg BID17 MURALI Administration Gabapentin 400 mg 08/31/21 17:24 09/02/21 14:16 Gabapentin 400 Mg Cap PO 09/30/21 17:23 400 mg TID MURALI Administration Ketorolac Tromethamine 10 mg 09/02/21 11:48 09/02/21 14:16 Ketorolac Tromethamine 10 Mg Tablet PO 09/04/21 11:47 10 mg Q8H PRN Administration Pain Oxycodone HCl 5 mg 08/31/21 16:35 09/01/21 05:52 Oxycodone Hcl Ir 5 Mg Tab (Immediate Release) PO 09/14/21 16:34 5 mg Q4H PRN Administration Pain Potassium Chloride 10 meq 09/01/21 09:00 09/02/21 08:16 Potassium Chloride 10 Meq Tabcr PO 10/01/21 08:59 10 meq QAM MURALI Administration Pregabalin 75 mg 08/31/21 21:00 09/02/21 08:20 Pregabalin 75 Mg Cap PO 09/30/21 20:59 75 mg BID MURALI Administration Senna/Docusate Sodium 2 tab 08/31/21 21:00 09/01/21 22:36 Docusate Sodium/Senna 50/8.6mg Tab PO 09/30/21 20:59 Not Given HS MURALI Spironolactone 25 mg 09/01/21 09:00 09/02/21 08:15 Spironolactone 25 Mg Tab PO 10/01/21 08:59 25 mg QAM MURALI Administration NPO Date Last Intake of Fluids: 09/01/21 Time Last Intake of Fluids: 00:00 Last Intake of Fluids Comment: Sips with meds Date Last Intake of Solids: 08/31/21 Time Last Intake of Solids: 17:00 Last Intake of Solids Comment: dinner Past Medical History Medical History (Updated 09/02/21 @ 17:17 by Antwon Lopez MD) Abnormal LFTs Adhesive capsulitis of left shoulder Anemia Cirrhosis of liver with ascites Edema, peripheral Fracture of proximal humerus Hepatocellular carcinoma Peripheral neuropathy Supratherapeutic INR Thrombocytopenia CHF postoperatively from hip surgery (responded well to diuresis) Past Family History Family History Other Asthma Diabetes Past Surgical History Surgical History (Updated 09/02/21 @ 17:18 by Antwon Lopez MD) History of hemiarthroplasty of hip Hx of appendectomy Social History Smoking Status: Never smoker Do You Dip or Chew Tobacco: No Hx Alcohol Use: No Alcohol type: beer, wine and hard liquor alcohol intake frequency: a few times a month Hx Substance Use: No substance use type: does not use Physical Exam Vital Signs Last Vital Signs Temp 37.1 C 09/02/21 15:55 Pulse 94 H 09/02/21 15:55 Resp 19 09/02/21 15:55 BP 93/53 L 09/02/21 16:29 Pulse Ox 92 09/02/21 15:55 Testing Laboratory Results 09/02/21 06:32 09/02/21 06:32 PT 19.1 Seconds (9.0-12.0) H 09/02/21 06:32 INR 2.0 (0.9-1.1) H 09/02/21 06:32 APTT 37.6 Seconds (21.0-31.0) H 08/31/21 09:28 Urine Color Yellow 08/31/21 09:55 Urine Appearance Clear (Clear) 08/31/21 09:55 Urine pH 7.5 (4.5-7.5) 08/31/21 09:55 Ur Specific [place] 1.006 (1.000-1.030) 08/31/21 09:55 Urine Protein Negative (Negative) 08/31/21 09:55 Urine Glucose (UA) Negative (Negative) 08/31/21 09:55 Urine Ketones Negative (Negative) 08/31/21 09:55 Urine Nitrite Negative (Negative) 08/31/21 09:55 Ur Leukocyte Esterase Negative (Negative) 08/31/21 09:55 Urine WBC (Auto) 1-5 /hpf (0-5) 08/31/21 09:55 Urine RBC (Auto) 10-30 /hpf (0-4) H 08/31/21 09:55 U Hyaline Cast (Auto) 1-5 /lpf (0-5) 08/31/21 09:55 U Epithel Cells (Auto) 0-5 /lpf (0-5) 08/31/21 09:55 Urine Bacteria (Auto) Negative (Negative) 08/31/21 09:55 Blood Type A Positive 08/31/21 18:33 Antibody Screen NEGATIVE 08/31/21 18:33 Electrocardiogram Date: 08/31/21 Findings: + ST @ (109) Chest X-Ray Date: 09/01/21 Findings: + pulmonary vascular congestion and + pleural effusion (small bilateral) Echocardiogram Date: 07/10/20 EF: 65-70% LV Function: normal Other Findings: + LVH (mild) Valvular Disease: + no significant valvular disease
[2021-09-02] MEDS: DOCUSATE SODIUM/SENNA 50/8.6MG TAB PO SCH (21:37)
[2021-09-03] MEDS ORDERED: GADOXETATE DISODIUM IV ONE (04:26)
[2021-09-03 06:58] LABS: Hematocrit (blood only) 19.7 % (42-52); Hemoglobin 6.9 g/dL (14.0-18.0); Mean Corpuscular Hemoglobin 39.9 pg (25-34); Mean Corpuscular Volume 113.9 fL (80-100); Mean Platelet Volume 10.2 fL (7.4-10.4); Platelet Count 65 K/uL (130-400); RDW Coefficient of Variation 14.9 % (11.5-14.5); RDW Standard Deviation 60.8 fL (36.4-46.3); Red Blood Count 1.73 M/uL (4.7-6.1)
[2021-09-03] MEDS ORDERED: SODIUM CHLORIDE 0.9% 250 ML IV PRN ×2 (07:33→08:57)
[2021-09-03 07:35] LABS: Albumin Level 2.2 gm/dl (3.4-5.0); BUN Creatinine Ratio 21.2 (10-20); Bilirubin,Total 8.8 mg/dl (0.2-1.0); Creatinine Clr Calc Pharmacy 40.4 ml/min; Est GFR (African American) 41.8 ml/min; Est GFR (Non-African American) 36.1 ml/min; Potassium 4.3 mmol/L (3.5-5.1); Total Protein 5.2 gm/dl (6.0-8.3)
[2021-09-03] MEDS ORDERED: INDOMETHACIN 50 MG SUPP PR SCH (08:00)
[2021-09-03] MEDS: FUROSEMIDE 40 MG TAB PO SCH (08:15)
[2021-09-03] MEDS: GABAPENTIN 400 MG CAP PO SCH ×3 (08:15→21:18)
[2021-09-03] MEDS: KETOROLAC TROMETHAMINE 10 MG TABLET PO PRN (08:15)
[2021-09-03] MEDS: ESCITALOPRAM OXALATE 10 MG TAB PO SCH (08:16)
[2021-09-03] MEDS: SPIRONOLACTONE 25 MG TAB PO SCH (08:16)
[2021-09-03] MEDS: POLYETHYLENE (MIRALAX) 17 GM PACK PO PRN (08:17)
--- NOTE | 2021-09-03 08:23 | Progress Notes ---
DATE OF SERVICE: 09/03/2021. SUBJECTIVE: A 71-year-old gentleman now postop day 2 from a left cemented bipolar hip arthroplasty f or fracture. He is doing reasonably well. I had to wake him this morning. Not in any particular pa in currently. He did get up and move some yesterday with assistance. No new complaints. Denies any chest pain. OBJECTIVE: VITAL SIGNS: Temperature 36.8. Vital signs are stable. PHYSICAL EXAMINATION: GENERAL: Shows a pleasant middle-aged male. He is lying in bed, looks pretty comfortable this morni ng. EXTREMITIES: Examination of the left leg reveals the leg to be well aligned. His dressing is clean, dry and intact. He has got diffuse edema in both legs, which is chronic. He can dorsiflex and plan tarflex his foot appropriately. He is neurologically intact. LABORATORY DATA: Hemoglobin 6.9. Hematocrit 19.7. Electrolytes show elevated creatinine 1.84. Sod ium is low at 129. ASSESSMENT: A 71-year-old gentleman with multiple medical comorbidities. Postoperative day 2 from a left cemented bipolar hip arthroplasty for fracture. Orthopedically, he seems to be reasonably stab le. He is quite anemic and would likely benefit from at least the unit of blood. His electrolytes a little bit off, and I am sure the medicine doctors will work on that. It looks like he is a little bit volume depleted based on his decreased renal function. PLAN: 1. DVT prophylaxis includes thigh-high TEDs and SCDs. 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 2. PT/OT. Weight bear as tolerated. Left total hip protocol. 3. Pain control, doing okay with current pain regimen. 4. Medical issues. Multiple medical issues as described above. We will allow the medical doctors t o manage that. Likely benefit from at least a unit of blood and correction of his electrolytes. 5. Disposition. He is orthopedically okay for discharge any time medically stable. Looks like he n eeds to be optimized medically for another day or two likely before transferring to [facility]. Job ID: [id number]
--- NOTE | 2021-09-03 08:37 | Magnetic Resonance Report ---
MRI OF THE ABDOMEN WITH AND WITHOUT CONTRAST LIVER PROTOCOL CLINICAL HISTORY: Jaundice. Evaluate liver (hx of hcc), ? biliary obstruction. COMPARISON STUDY: MRCP July 10, 2020. Right upper quadrant ultrasound September 02, 2021. TECHNIQUE: Utilizing a 1.5 Ladi magnet and dedicated coil, multiplanar, multiecho imaging of the abd omen was performed pre and postcontrast administration. Intravenous injection of 10 cc of Eovist was uneventful. Post contrast imaging was performed with dynamic enhancement with 20 minute delayed phase imaging. MRCP was also performed. FINDINGS: Liver is cirrhotic. This exam is mildly compromised by motion artifact but no hypervascular hepatic lesions are identified. No definite foci of restricted diffusion within the liver are identi fied. No intra or extrahepatic biliary ductal dilatation is present. The common bile duct measures 4 mm in caliber. No common bile duct calculi are identified. Although suboptimally assessed on this exa m, the main, left and right portal veins are likely patent. Splenomegaly is noted. Spleen measures 14 cm in craniocaudal dimension. Moderate ascites is noted. Upper abdominal collaterals are present. Ga llstones are noted within the gallbladder. The gallbladder is mildly distended. There is no dilatatio n of the main pancreatic duct. Numerous cystic lesions within the pancreas measure up to 1.2 cm. Thes e do not appear to enhance. There is no hydronephrosis. IMPRESSION: 1. Cirrhosis with manifestations of portal hypertension including ascites, splenomegaly and varices f ormation. 2. Exam mildly compromised by motion artifact but no hypervascular hepatic lesions. No suspicious les ions within the liver by MRI. 3. No biliary ductal dilatation. No common bile duct calculi identified. 4. Cholelithiasis. 5. Multiple cystic pancreas lesions. 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 ACT 112: Negative or not required by law. Electronically signed by: Joes Peraza M.D. 09/03/2021 8:36 AM
[2021-09-03] MEDS ORDERED: PIPERACILL/TAZOBAC CONSULT ACTIVE PRN (08:57)
[2021-09-03] MEDS: POTASSIUM CHLORIDE 10 MEQ TABCR PO SCH (09:17)
[2021-09-03] MEDS: PREGABALIN 75 MG CAP PO SCH ×2 (09:17→21:17)
[2021-09-03] MEDS ORDERED: PHYTONADIONE 10 MG in SODIUM CHLORIDE 0.9% 50 ML IV ONE (09:30)
--- NOTE | 2021-09-03 09:37 | Gastroenterology Progress Note ---
Date of Service September 03, 2021 Assessment & Plan (1) Cirrhosis of liver with ascites: (2) Hepatocellular carcinoma: (3) Closed fracture of left hip: Plan: Pt is a 71 y/o admitted w L hip fracture after a fall, s/p L hemiarthroplasty on 09/01. He has hx of cirrhosis, HCC on segment II liver - was to undergo IR embolization of this tomorrow but cancelled due to admission. His Tbili is elevated from his baseline 9->13. MELD: 27 AM labs showed Hgb 6.9 from 8. INR 2.0. Tbili 8. US showed CBD dilation of 1cm but MRCP w/o obvious signs of CBD stone/obstruction - Keep NPO - Plan for EGD/EUS eval in OR today by Dr. Castellanos. ERCP if stones noted in CBD - PRBC ordered by hospitalist team. Add 2U FFP, vit K 10mg IV x 1 dose. Start Zosyn IV - He needs to complete Echo saline study and have updated MELD labs (fax to Kimmy Glynn, apartment coordinator [phone]) during his admission in order to be presented again [place] [facility] [place] for [place]. Admission and Anticipated Discharge Date Admission Date: August 31, 2021 Supervising Physician Co-Signing Physician Notes I saw and evaluated the patient. We were consulted for elevated liver enzymes. The MRCP did show evidence of cholelithiasis without obvious stones within the common bile duct. Given the question of choledocholithiasis we will proceed with upper endoscopy and EUS this afternoon. Should choledocho lithiasis be seen on EUS we would then proceed with ERCP. I have discussed the risks and benefits of the procedure with the patient to include bleeding, infection, perforation, pain, pancreatitis, failed biliary cannulation and the need for follow-up studies. Patient did have reduction in his hemoglobin and hematocrit since yesterday and I wonder if this may be related to his recent hip fracture. The patient is receiving a transfusion of packed red blood cells in addition to 2 units of FFP given his elevated INR. Subjective Pt denies pain, just some mild discomfort on L hip. No CP, SOB. Review of Systems Review of Systems: All systems reviewed & are unremarkable except as noted in HPI & below Physical Exam Constitutional: WD/WN, vitals as above well groomed, cooperative and comfortable Eyes: icteric sclera ENMT: external ear and nose normal, oropharynx normal Respiratory: Normal respiratory effort, diminished lung sounds Cardiovascular: RRR, no murmur, no edema Gastrointestinal (Abdomen): Less distended compared to yesterday. Non tender, BS hypoactive. Skin: no rashes, warm and dry + jaundice Psychiatric: A+Ox3, euthymic affect Lymphatic: no lymphedema Results & Data ([facility]) Vital Signs (Past 12 Hours) Vital Signs Temp Pulse Pulse Resp BP BP Pulse Ox 09/03/21 08:20 36.6 C 90 20 100/64 94 09/03/21 07:59 36.6 C 88 20 101/65 92 09/02/21 23:35 36.8 C 88 16 87/44 L 91 (1) Closed fracture of left hip Encounter type: initial encounter Qualified Code(s): S72.002A - Fracture of unspecified part of neck of left femur, initial encounter for closed fracture
[2021-09-03] MEDS ORDERED: PIPERACILLIN/TAZOBACTAM 3.375 GM in DEXTROSE 5% 100 ML IV ONE (10:00)
--- NOTE | 2021-09-03 11:48 | GI REPORT ---
Patient Name: Oz Jolley Procedure Date: 09/03/2021 11:13 AM Date of : 1950 Admit Type: Inpatient Age: 71 Gender: Male Attending MD: Tyree Castellanos DO Procedure: Upper GI endoscopy Providers: Tyree Castellanos DO Referring MD: Humphrey Kelly Md, Anita Castro Indications: Cirrhosis with suspected esophageal varices, Abnormal CT of the GI tract Medicines: Monitored Anesthesia Care Complications: No immediate complications. Estimated blood loss: Minimal. Estimated Blood Loss: Estimated blood loss was minimal. Procedure: Pre-Anesthesia Assessment: - Prior to the procedure, a History and Physical was performed, and patient medications, allergies and sensitivities were reviewed. The patient's tolerance of previous anesthesia was reviewed. - The risks and benefits of the procedure and the sedation options and risks were discussed with the patient. All questions were answered and informed consent was obtained. - Patient identification and proposed procedure were verified prior to the procedure by the physician, the nurse and the slate cutter operator. The procedure was verified in the procedure room. - Pre-procedure physical examination revealed no contraindications to sedation. - ASA Grade Assessment: IV - A patient with severe systemic disease that is a constant threat to life. - After reviewing the risks and benefits, the patient was deemed in satisfactory condition to undergo the procedure. - The anesthesia plan was to use monitored anesthesia care (MAC). - Immediately prior to administration of medications, the patient was re-assessed for adequacy to receive sedatives. - The heart rate, respiratory rate, oxygen saturations, blood pressure, adequacy of pulmonary ventilation, and response to care were monitored throughout the procedure. - The physical status of the patient was re-assessed after the procedure. After obtaining informed consent, the endoscope was passed under direct vision. Throughout the procedure, the patient's blood pressure, pulse, and oxygen saturations were monitored continuously. The Endoscope was introduced through the mouth, and advanced to the third part of duodenum. The upper GI endoscopy was accomplished without difficulty. The patient tolerated the procedure well. Findings: Three columns of grade II varices with no bleeding and no stigmata of recent bleeding were found in the lower third of the esophagus, 33 to 36 cm from the incisors. They were 3 mm in largest diameter. No red peter signs were present. Moderate portal hypertensive gastropathy was found in the entire examined stomach. The examined duodenum was normal. Impression: - Grade II esophageal varices with no bleeding and no stigmata of recent bleeding. - Portal hypertensive gastropathy. - Normal examined duodenum. - No specimens collected. Recommendation: - Perform an upper endoscopic ultrasound (UEUS) today. Tyree Castellanos D.O. Tyree Castellanos, DO 09/03/2021 11:48:10 AM This report has been signed electronically. Note Initiated On: 09/03/2021 11:13 AM Number of Addenda: 0 I attest to the content of the Intraoperative Record and orders documented therein, exceptions below {[id number]}
[2021-09-03] MEDS ORDERED: LIDOCAINE 2% 2 ML VIAL/AMP(20MG/ML) INFIL ONE ×2 (11:58→12:25)
[2021-09-03] MEDS ORDERED: PROPOFOL IV EMULSION 10 MG/ML 20 ML VIAL IV ONE (11:58)
--- NOTE | 2021-09-03 12:01 | Anesthesiology Consultation ---
Date of Service September 03, 2021 Assessment & Plan (1) Encounter for pre-operative examination: Chart Review Chart Review: Acceptable Risk for Surgery and Patient NOT seen in Pre Admission Testing Consults Requested none History Surgery Operation Date: 09/01/21 12:30 Proposed Procedures p Left Bipolar Hemiarthroplasty Cemented - Mervin Meza MD Operation Date: 09/03/21 08:35 Proposed Procedures p Endoscopic Retrograde Cholangiopancreatogram - DO ace Johnson Endoscopic Ultrasonography Upper - DO ace Johnson Esophagogastroduodenoscopy - Tyree Castellanos DO Height/Weight Height: 5 ft 9 in Weight: 88 kg Allergies Allergy/AdvReac Type Severity Reaction Status Date / Time Sulfa (Sulfonamide Allergy Mild Rash Verified 08/31/21 12:02 Antibiotics) morphine AdvReac Intermediate crazy Verified 08/31/21 12:02 Medications Home Medications Medication Instructions Recorded Confirmed Last Taken spironolactone 25 mg tablet 25 mg PO QAM 02/05/21 08/31/21 08/31/21 trazodone 50 mg tablet 25 mg PO HS PRN 02/05/21 08/31/21 Unknown escitalopram oxalate 5 mg tablet 5 mg PO QAM 08/31/21 08/31/21 08/31/21 furosemide 40 mg tablet 40 mg PO BID 08/31/21 08/31/21 08/31/21 gabapentin 400 mg capsule 400 mg PO TID 08/31/21 08/31/21 08/31/21 oxycodone 5 mg tablet 5 mg PO Q4H PRN 08/31/21 08/31/21 Unknown potassium chloride 10 mEq 10 meq PO QAM 08/31/21 08/31/21 08/31/21 tablet,extended release(part/cryst) pregabalin 75 mg capsule (Lyrica) 75 mg PO BID 08/31/21 08/31/21 Unknown Active Medications Generic Name Dose Route Start Last Admin Trade Name Isaacq PRN Reason Stop Dose Admin Escitalopram Oxalate 5 mg 09/01/21 09:00 09/03/21 08:16 Escitalopram Oxalate 10 Mg Tab PO 10/01/21 08:59 5 mg QAM MURALI Administration Furosemide 40 mg 08/31/21 18:00 09/03/21 08:15 Furosemide 40 Mg Tab PO 09/30/21 17:59 40 mg BID17 MURALI Administration Gabapentin 400 mg 08/31/21 17:24 09/03/21 08:15 Gabapentin 400 Mg Cap PO 09/30/21 17:23 400 mg TID MURALI Administration Indomethacin 100 mg 09/03/21 08:00 09/03/21 12:00 Indomethacin 50 Mg Supp FL 09/03/21 16:00 Not Given TODAY@0800 MURALI Oxycodone HCl 5 mg 08/31/21 16:35 09/01/21 05:52 Oxycodone Hcl Ir 5 Mg Tab (Immediate Release) PO 09/14/21 16:34 5 mg Q4H PRN Administration Pain Polyethylene Glycol 17 gm 08/31/21 17:24 09/03/21 08:17 Polyethylene (Miralax) 17 Gm Pack PO 09/30/21 17:23 17 gm DAILY PRN Administration Constipation Potassium Chloride 10 meq 09/01/21 09:00 09/03/21 09:17 Potassium Chloride 10 Meq Tabcr PO 10/01/21 08:59 10 meq QAM MURALI Administration Pregabalin 75 mg 08/31/21 21:00 09/03/21 09:17 Pregabalin 75 Mg Cap PO 09/30/21 20:59 75 mg BID MURALI Administration Senna/Docusate Sodium 2 tab 08/31/21 21:00 09/02/21 21:37 Docusate Sodium/Senna 50/8.6mg Tab PO 09/30/21 20:59 2 tab HS MURALI Administration Spironolactone 25 mg 09/01/21 09:00 09/03/21 08:16 Spironolactone 25 Mg Tab PO 10/01/21 08:59 25 mg QAM MURALI Administration NPO Date Last Intake of Fluids: 09/03/21 Time Last Intake of Fluids: 09:00 Last Intake of Fluids Comment: sips water with meds / milk of megnesia at 8.17 am. and NPO after midnight Date Last Intake of Solids: 08/31/21 Time Last Intake of Solids: 18:00 Last Intake of Solids Comment: dinner Past Medical History Medical History Abnormal LFTs Adhesive capsulitis of left shoulder Anemia Cirrhosis of liver with ascites Edema, peripheral Fracture of proximal humerus Hepatocellular carcinoma Peripheral neuropathy Supratherapeutic INR Thrombocytopenia Past Family History Family History Other Asthma Diabetes Past Surgical History Surgical History History of hemiarthroplasty of hip Hx of appendectomy Past Anesthesia History No Hx of Anesthesia Complications and No Family Hx of Anesthesia Complications Social History Smoking Status: Never smoker Do You Dip or Chew Tobacco: No Hx Alcohol Use: No Alcohol type: beer, wine and hard liquor alcohol intake frequency: a few times a month Hx Substance Use: No substance use type: does not use Physical Exam Vital Signs Last Vital Signs Temp 37 C 09/03/21 11:25 Pulse 88 09/03/21 11:25 Resp 20 09/03/21 11:25 BP 91/57 L 09/03/21 11:25 Pulse Ox 99 09/03/21 11:25 Testing Laboratory Results 09/03/21 06:30 09/03/21 06:30 PT 19.1 Seconds (9.0-12.0) H 09/02/21 06:32 INR 2.0 (0.9-1.1) H 09/02/21 06:32 APTT 37.6 Seconds (21.0-31.0) H 08/31/21 09:28 Urine Color Yellow 08/31/21 09:55 Urine Appearance Clear (Clear) 08/31/21 09:55 Urine pH 7.5 (4.5-7.5) 08/31/21 09:55 Ur Specific [place] 1.006 (1.000-1.030) 08/31/21 09:55 Urine Protein Negative (Negative) 08/31/21 09:55 Urine Glucose (UA) Negative (Negative) 08/31/21 09:55 Urine Ketones Negative (Negative) 08/31/21 09:55 Urine Nitrite Negative (Negative) 08/31/21 09:55 Ur Leukocyte Esterase Negative (Negative) 08/31/21 09:55 Urine WBC (Auto) 1-5 /hpf (0-5) 08/31/21 09:55 Urine RBC (Auto) 10-30 /hpf (0-4) H 08/31/21 09:55 U Hyaline Cast (Auto) 1-5 /lpf (0-5) 08/31/21 09:55 U Epithel Cells (Auto) 0-5 /lpf (0-5) 08/31/21 09:55 Urine Bacteria (Auto) Negative (Negative) 08/31/21 09:55 Blood Type A Positive 08/31/21 18:33 Antibody Screen NEGATIVE 08/31/21 18:33 Electrocardiogram Date: 08/31/21 Findings: + ST @ (109) Chest X-Ray Date: 09/01/21 Findings: + pulmonary vascular congestion and + pleural effusion (small bilateral) Echocardiogram Date: 07/10/20 EF: 65-70% LV Function: normal Other Findings: + LVH (mild) Valvular Disease: + no significant valvular disease Other Testing Lumbar spine CT: IMPRESSION: 1. There is a minimal and age indeterminant superior endplate compression deformity of L2. 2. No additional findings are concerning for acute fracture involving the lumbar spine. 3. There is a mild and age indeterminant inferior endplate compression deformity of T12. This was not seen on the 07/09/2020 lateral chest x-ray. Correlate for point tenderness. 4. Osteopenia and spondylotic change as above. 5. Perihepatic ascites is noted in the right upper quadrant. 6. Cholelithiasis and bilateral nephrolithiasis.
[2021-09-03] MEDS ORDERED: ATROPINE SULFATE 0.1 MG/ML 10ML SYR IV PRN (12:04)
[2021-09-03] MEDS ORDERED: ONDANSETRON INJ 2 MG/ML 2 ML VIAL IV PRN (12:04)
[2021-09-03] MEDS ORDERED: ePHEDrine sulfate 50 MG/ML AMP IV PRN (12:04)
[2021-09-03] MEDS ORDERED: fentaNYL citrate 100 MCG/2 ML VIAL IV PRN (12:04)
--- NOTE | 2021-09-03 12:08 | GI REPORT ---
Patient Name: Oz Jolley Procedure Date: 09/03/2021 11:23 AM Date of : 1950 Admit Type: Inpatient Age: 71 Gender: Male Attending MD: Tyree Castellanos DO Procedure: Upper EUS Providers: Tyree Castellanos DO Referring MD: Humphrey Kelly Md, Anita Castro Indications: Elevated liver enzymes, Suspected choledocholithiasis Medicines: Monitored Anesthesia Care Complications: No immediate complications. Estimated blood loss: Minimal. Estimated Blood Loss: Estimated blood loss was minimal. Procedure: Pre-Anesthesia Assessment: - Prior to the procedure, a History and Physical was performed, and patient medications, allergies and sensitivities were reviewed. The patient's tolerance of previous anesthesia was reviewed. - The risks and benefits of the procedure and the sedation options and risks were discussed with the patient. All questions were answered and informed consent was obtained. - Patient identification and proposed procedure were verified prior to the procedure by the physician, the nurse and the charter pilot. The procedure was verified in the procedure room. - Pre-procedure physical examination revealed no contraindications to sedation. - ASA Grade Assessment: IV - A patient with severe systemic disease that is a constant threat to life. - After reviewing the risks and benefits, the patient was deemed in satisfactory condition to undergo the procedure. - The anesthesia plan was to use monitored anesthesia care (MAC). - Immediately prior to administration of medications, the patient was re-assessed for adequacy to receive sedatives. - The heart rate, respiratory rate, oxygen saturations, blood pressure, adequacy of pulmonary ventilation, and response to care were monitored throughout the procedure. - The physical status of the patient was re-assessed after the procedure. After obtaining informed consent, the endoscope was passed under direct vision. Throughout the procedure, the patient's blood pressure, pulse, and oxygen saturations were monitored continuously. The Scope was introduced through the mouth, and advanced to the third part of duodenum. The upper EUS was accomplished without difficulty. The patient tolerated the procedure well. Findings: ENDOSONOGRAPHIC FINDING: : There was no sign of significant endosonographic abnormality in the ampulla. No pathologic lymphadenopathy was identified. There was no sign of significant endosonographic abnormality in the common bile duct. The maximum diameter of the duct was 6 mm. No stones, no biliary sludge and ducts of normal caliber were identified. Multiple stones and a large amount of sludge was visualized endosonographically in the gallbladder. They were hyperechoic and characterized by shadowing. There was abnormal echogenicity in the visualized portion of the liver. This area was heterogenous. There was no sign of significant endosonographic abnormality in the entire pancreas. The pancreatic duct measured up to 2 mm in diameter. No masses, no cysts, the pancreatic duct was thin in caliber. No lymphadenopathy seen. varices A moderate amount of fluid, visualized as a hypoechoic feature, was found in the peritoneal cavity. Impression: - There was no sign of significant pathology in the ampulla. - There was no sign of significant pathology in the common bile duct. - Multiple stones and a copious amount of sludge was visualized endosonographically in the gallbladder. - There was abnormal echogenicity in the visualized portion of the liver. This was heterogenous. - There was no sign of significant pathology in the entire pancreas. - Ascites was found on endosonographic examination of the peritoneal cavity. - No specimens collected. Recommendation: - Return patient to [facility] for [facility] care. - No evidence of choledocholithiasis during today's exam - Elevated bilirubin likely related to recent surgical intervention on his hip and with resorption of blood. Tyree Castellanos D.O. Tyree Castellanos, DO 09/03/2021 12:07:45 PM This report has been signed electronically. Note Initiated On: 09/03/2021 11:23 AM Number of Addenda: 0 I attest to the content of the Intraoperative Record and orders documented therein, exceptions below {[id number]}
--- NOTE | 2021-09-03 14:01 | Communication Note ---
Date of Service: September 03, 2021 The patient underwent upper endoscopy and endoscopic ultrasound this afternoon. The patient was found to have evidence of grade 2 esophageal varices and portal gastropathy without evidence of gastrointestinal bleeding. The endoscopic ultrasound was notable for a large amount of sludge and stone material within the gallbladder but a normal-appearing common bile duct. Based on the patient's history and lack of abdominal discomfort the elevated bilirubin is likely related to his underlying liver disease and recent presentation with a hip fracture. Recommendations advance to low-sodium diet Patient should resume care with his hepatology service provider at [facility] upon discharge Avoid use of nonsteroidals Please call with any questions or concerns
--- NOTE | 2021-09-03 14:11 | Anesthesiology Progress Note ---
Date of Service September 03, 2021 Anesthesia Post Procedure Vital Signs Vital Signs: Temp Pulse Pulse Resp BP BP BP 09/03/21 13:54 36.6 C 82 20 99/62 L 09/03/21 12:55 80 22 82/44 L 09/03/21 12:45 36.6 C 76 19 93/54 L 09/03/21 12:35 36.6 C 79 19 84/50 L 09/03/21 12:25 77 21 86/51 L 09/03/21 12:15 75 22 99/55 L 09/03/21 12:12 35.9 C L 74 16 82/51 L 09/03/21 11:25 37 C 88 20 91/57 L 09/03/21 11:02 36.6 C 88 20 89/53 L 09/03/21 10:55 37 C 86 20 101/64 09/03/21 10:54 37 C 91 H 18 103/63 09/03/21 10:47 36.6 C 82 20 89/53 L 09/03/21 10:05 36.7 C 88 20 91/55 L 09/03/21 09:58 36.6 C 80 20 94/57 L 09/03/21 09:05 36.7 C 83 20 96/61 L 09/03/21 08:35 36.7 C 89 20 100/64 09/03/21 08:20 36.6 C 90 20 100/64 09/03/21 07:59 36.6 C 88 20 101/65 09/03/21 07:30 85 09/02/21 23:35 36.8 C 88 16 87/44 L 09/02/21 19:57 37.0 C 91 H 18 89/49 L 09/02/21 18:11 82/41 L 94/57 L 09/02/21 17:22 94/51 L 09/02/21 16:29 93/53 L 09/02/21 15:55 37.1 C 94 H 19 90/51 L 09/02/21 15:00 Pulse Ox Pulse Ox 09/03/21 13:54 96 09/03/21 12:55 100 09/03/21 12:45 98 09/03/21 12:35 99 09/03/21 12:25 98 09/03/21 12:15 99 09/03/21 12:12 98 09/03/21 11:25 99 09/03/21 11:02 98 09/03/21 10:55 99 09/03/21 10:54 94 09/03/21 10:47 94 09/03/21 10:05 94 09/03/21 09:58 94 09/03/21 09:05 94 09/03/21 08:35 91 09/03/21 08:20 94 09/03/21 07:59 92 09/03/21 07:30 09/02/21 23:35 91 09/02/21 19:57 92 09/02/21 18:11 09/02/21 17:22 09/02/21 16:29 09/02/21 15:55 92 09/02/21 15:00 94 Pain Intensity Left Upper Leg: Pain Intensity: 6 Transfer of Care Handoff Completed per policy Notes Mental Status: alert / awake / arousable and participated in evaluation Patient Amnestic to Procedure: Yes Nausea / Vomiting: adequately controlled Pain: adequately controlled Airway Patency, RR, SpO2: stable & adequate BP & HR: stable & adequate Hydration State: stable & adequate Anesthetic Complications: no major complications apparent and Pt Satisfied with anesthetic care
[2021-09-03 14:49] LABS: Hematocrit (blood only) 26.6 % (42-52); Hemoglobin 9.1 g/dL (14.0-18.0)
--- NOTE | 2021-09-03 15:34 | Hospitalist Progress Note ---
Date of Service September 03, 2021 Assessment & Plan (1) Fall: (2) Closed fracture of left hip: Plan: Patient is a 71 yr male with H/O cirrhosis of liver with ascites in setting of hepatocellular carcinoma diagnosed in January 2021, peripheral neuropathy, thrombocytopenia and other medical problems listed below who presents after fall at work earlier today and was found to have . Acute left femoral neck fracture Secondary to fall Acute blood loss anemia-Post Operative S/P PRBC --Femur XR showed acute fracture of the left femoral neck --CXR with no acute cardiac process Underwent cardiac eval last week as potential liver transplant candidate with normal dobutamine stress test Supratherapeutic INR in setting of liver disease 2.2 S/P Left Bipolar Hemiarthroplasty by Dr.James Meza on 09/01/21 Pain control Continue wound Care Continue PT/OT Needs rehab placement Needs follow-up with orthopedic surgery in 2 to 3 weeks upon discharge Monitor CBC Transfuse PRBCs as needed Acute pulmonary edema Acute respiratory failure with hypoxia, hypercapnia developed post operatively CXR:Interval development of interstitial thickening suggestive of pulmonary edema. Right suprahilar density could reflect a dilated azygos vein. Suspected small bilateral pleural effusions with bibasilar opacities which could reflect atelectasis or consolidation. Low lung volumes. Likely secondary to transfusions in setting of cirrhosis history Received 1 dose of IV Lasix 60 mg Monitor volume status Currently on 1 liter supplemental oxygen Home diuretics held today secondary to MARK Resume diuretics as able (3) Supratherapeutic INR: Plan: INR 2.2 in setting of cirrhosis Prior hospitalist discussed with Dr. Newman S/P IV Vitamin K, Plasma Acute kidney injury Hold diuretics Avoid nephrotoxic agents as able Monitor renal function (4) Cirrhosis of liver with ascites: (5) Hepatocellular carcinoma: Plan: HCC diagnosed in January 2021, [place] [facility] [place]. Tbili 9.5, AST 57, ALT 33, Alk phos 173, plt 86 Patient is a liver transplant candidate who was scheduled for IR procedure for directed chemotherapy Continue lasix, spironolactone. Low sodium diet Hyperbilirubinemia Appreciate GI input --MRCP:Cirrhosis with manifestations of portal hypertension including ascites, splenomegaly and varices formation. No biliary ductal dilatation. No common bile duct calculi identified. Cholelithiasis. Multiple cystic pancreas lesions. 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 --Endoscopic US:- There was no sign of significant pathology in the ampulla. There was no sign of significant pathology in the common bile duct. Multiple stones and a copious amount of sludge was visualized endosonographically in the gallbladder. There was abnormal echogenicity in the visualized portion of the liver. This was heterogenous. There was no sign of significant pathology in the entire pancreas. Ascites was found on endosonographic examination of the peritoneal cavity. No specimens collected. --Elevated bilirubin likely related to recent surgical intervention on his hip and with resorption of blood as per GI --Monitor LFTs --Avoid NSAIDs Compression deformity T12, L2: -Lumbar CT:There is a minimal and age indeterminant superior endplate compression deformity of L2. No additional findings are concerning for acute fracture involving the lumbar spine. There is a mild and age indeterminant i nferior endplate compression deformity of T12. This was not seen on the 07/09/2020 lateral chest x-ray. Correlate for point tenderness. -Pain control Ortho on board (6) Thrombocytopenia: Plan: Platelets of 86>76>65 K Monitor (7) Peripheral neuropathy: Plan: Continue gabapentin, lyrica DVT Px: SCDs Re: Surgery, Thrombocytopenia, Anemia, Increased INR Code status: FULL CODE Disposition Rehab as able Admission and Anticipated Discharge Date Admission Date: August 31, 2021 Subjective Patient is seen and examined at bedside Patient had EGD, endoscopic ultrasound earlier this morning Currently drowsy postprocedure Denies any nausea, vomiting, abdominal pain, chest pain, shortness of breath Leg pain at surgical site is controlled Also denies any back pain today Discussed with GI today Review of Systems Review of Systems: All systems reviewed & are unremarkable except as noted in Subjective Physical Exam Physical Exam: Physical Exam: Vitals signs as noted above General Appearance:Moderately built and nourished, no apparent distress Head: normocephalic, Atraumatic Eyes: normal inspection, EOMI, +Icteric Neck: supple, Trachea midline Respiratory/Chest: Normal breath sounds, CTA, No accessory muscle use Cardiovascular: S1, S2, No murmur Abdomen/GI:Soft, Non tender, Bowel sounds present Extremities/Musculoskeletal:normal inspection, B/L LE edema, Left hip surgical site in dressing Neurologic/Psych:AAOX3, grossly no focal neurological deficits Skin: normal color, warm Results & Data Results & Data (MN) Vital Signs (Past 12 Hours) Vital Signs Temp Pulse Pulse Resp BP BP BP 09/03/21 13:54 36.6 C 82 20 99/62 L 09/03/21 12:55 80 22 82/44 L 09/03/21 12:45 36.6 C 76 19 93/54 L 09/03/21 12:35 36.6 C 79 19 84/50 L 09/03/21 12:25 77 21 86/51 L 09/03/21 12:15 75 22 99/55 L 09/03/21 12:12 35.9 C L 74 16 82/51 L 09/03/21 11:25 37 C 88 20 91/57 L 09/03/21 11:02 36.6 C 88 20 89/53 L 09/03/21 10:55 37 C 86 20 101/64 09/03/21 10:54 37 C 91 H 18 103/63 09/03/21 10:47 36.6 C 82 20 89/53 L 09/03/21 10:05 36.7 C 88 20 91/55 L 09/03/21 09:58 36.6 C 80 20 94/57 L 09/03/21 09:05 36.7 C 83 20 96/61 L 09/03/21 08:35 36.7 C 89 20 100/64 09/03/21 08:20 36.6 C 90 20 100/64 09/03/21 07:59 36.6 C 88 20 101/65 09/03/21 07:30 85 Pulse Ox 09/03/21 13:54 96 09/03/21 12:55 100 09/03/21 12:45 98 09/03/21 12:35 99 09/03/21 12:25 98 09/03/21 12:15 99 09/03/21 12:12 98 09/03/21 11:25 99 09/03/21 11:02 98 09/03/21 10:55 99 09/03/21 10:54 94 09/03/21 10:47 94 09/03/21 10:05 94 09/03/21 09:58 94 09/03/21 09:05 94 09/03/21 08:35 91 09/03/21 08:20 94 09/03/21 07:59 92 09/03/21 07:30 Laboratory Results Short CBC 09/03/21 09/03/21 Range/Units 06:30 13:59 WBC 11.30 H (4.8-10.8) K/uL Hgb 6.9 L* 9.1 L (14.0-18.0) g/dL Hct 19.7 L* 26.6 L (42-52) % Plt Count 65 L (130-400) K/uL BMP 09/03/21 06:30 Sodium 129 L Potassium 4.3 Chloride 92 L Carbon Dioxide 29 BUN 39 H Creatinine 1.84 H D Glucose 178 H Calcium 8.0 L Liver Function 09/03/21 Range/Units 06:30 Total Bilirubin 8.8 H (0.2-1.0) mg/dl Direct Bilirubin 3.0 H (0-0.2) mg/dl AST 43 H (13-39) U/L ALT 21 (7-52) U/L Alkaline Phosphatase 89 (34-104) U/L Albumin 2.2 L (3.4-5.0) gm/dl (1) Fall Encounter type: initial encounter Qualified Code(s): W19.XXXA - Unspecified fall, initial encounter (2) Closed fracture of left hip Encounter type: initial encounter Qualified Code(s): S72.002A - Fracture of unspecified part of neck of left femur, initial encounter for closed fracture
[2021-09-03] MEDS ORDERED: PIPERACILLIN/TAZOBACTAM 3.375 GM in DEXTROSE 5% 100 ML IV SCH (16:00)
[2021-09-03] MEDS: DOCUSATE SODIUM/SENNA 50/8.6MG TAB PO SCH (21:22)
[2021-09-03] MEDS ORDERED: ALBUT/IPRATROP 3MG/0.5MG NEB 3 ML VIAL NEB STA (21:50)
[2021-09-03] MEDS ORDERED: ALBUMIN 25% 100 mL 25 GM/100 ML VIAL IV ONE (21:56)
[2021-09-03 23:07] LABS: Base Excess ABG 3.4 mEq/L (-9-1.8); HCO3 ABG 28 mmol/L (19-24); Oxygen Saturation ABG 94.2 % (90-95); PCO2 ABG 40 mmHg (35-46); PO2 ABG 70 mmHg (80-95); pH ABG 7.46 (7.35-7.45)
[2021-09-03 23:13] LABS: Allen Test POS (Pos)
[2021-09-03 23:56] LABS: Calcium 8.3 mg/dl (8.5-10.1); Creatinine Clr Calc Pharmacy 38.7 ml/min; Est GFR (African American) 39.7 ml/min; Est GFR (Non-African American) 34.3 ml/min; Magnesium 1.9 mg/dl (1.7-2.4)
[2021-09-04] MEDS ORDERED: MAGNESIUM SULFATE / D5W 1 GM/100 ML BAG IV ONE (00:53)
[2021-09-04 07:00] LABS: Hematocrit (blood only) 26.8 % (42-52); Hemoglobin 9.3 g/dL (14.0-18.0); Mean Corpuscular Hemoglobin 36.8 pg (25-34); Mean Corpuscular Hgb Conc 34.7 g/dL (32-36); Mean Corpuscular Volume 105.9 fL (80-100); RDW Coefficient of Variation 19.7 % (11.5-14.5); RDW Standard Deviation 74.7 fL (36.4-46.3); Red Blood Count 2.53 M/uL (4.7-6.1); White Blood Count 9.29 K/uL (4.8-10.8)
[2021-09-04 07:18] LABS: Mean Platelet Volume 10.1 fL (7.4-10.4); Platelet Count 62 K/uL (130-400)
--- NOTE | 2021-09-04 07:55 | XRay Report ---
XR chest 1V portable HISTORY: 71 years-old Male low o2 acute hypoxia COMPARISON: Chest radiograph 09/01/2021 TECHNIQUE: Portable AP chest FINDINGS: Cardiac silhouette is enlarged. No pneumothorax. Probable trace pleural effusions. There is moderatel y improved aeration of the lungs with mild persistent left greater than right interstitial coarsening with left basilar prominent airspace opacities. Degenerative changes of the shoulders and spine with suggested right sided rotator cuff calcific tendinosis. IMPRESSION: 1. Cardiomegaly with moderately improved pulmonary edema. 2. Mild persistent left basilar consolidation. 2. Trace pleural effusions. ACT 112: Negative or not required by law. The above report was generated using voice recognition software. It may contain grammatical, syntax o r spelling errors. Electronically signed by: Aaron Peck M.D. 09/04/2021 7:54 AM
[2021-09-04 08:33] LABS: Albumin Level 2.8 gm/dl (3.4-5.0); Bilirubin Direct 2.9 mg/dl (0-0.2); Bilirubin,Total 9.6 mg/dl (0.2-1.0); Calcium 8.7 mg/dl (8.5-10.1); Creatinine Clr Calc Pharmacy 40.4 ml/min; Est GFR (African American) 41.8 ml/min; Est GFR (Non-African American) 36.1 ml/min; Total Protein 6.1 gm/dl (6.0-8.3)
--- NOTE | 2021-09-04 09:07 | Progress Notes ---
DATE OF SERVICE: 09/04/2021. SUBJECTIVE: A 71-year-old gentleman postoperative day 3 from a left cemented bipolar hip arthroplast y for fracture. He seems to be doing okay. A little frustrated with his situation. His pain seems to be controlled. No new complaints. No chest pain or shortness of breath. OBJECTIVE: VITAL SIGNS: Temperature 36.8. Vital signs are stable. GENERAL: Shows a pleasant, elderly male. He is sitting up in bed, and looks reasonably comfortable. He looks a little bit wiped out. EXTREMITIES: Examination of the left hip and leg reveals the leg to be well aligned. Dressing is cl jermaine, dry and intact. He can dorsiflex and plantarflex his foot appropriately. NEUROLOGIC: He is neurologically intact. LABORATORY DATA: Hemoglobin 9.3. Hematocrit 26.8. Electrolytes are pending. ASSESSMENT: A 71-year-old gentleman with multiple medical comorbidities. Postop day 3 from a left c emented bipolar hip arthroplasty for fracture. Orthopedically, he seems to be doing okay. Hemoglobi n appears stable this morning. He is neurologically intact. Hip is located. PLAN: 1. DVT prophylaxis includes thigh-high TEDs, SCDs. Not really a candidate for additional anticoagul ation as he is already anticoagulated due to his liver disease. 2. PT/OT. He can weight bear as tolerated, left lower extremity. Does need to obey hip precautions . 3. Pain control, seems to be doing okay with current pain regimen. 4. Medical management as per the medicine service. 5. Disposition: He is orthopedically okay for discharge any time medically stable. ADDENDUM: The patient is complaining of a little bit of soreness of his heels. We need to be very c arefully keep pressure off his heels up with towels, switching position and heel precautions. Job ID: [id number]
[2021-09-04] MEDS: ESCITALOPRAM OXALATE 10 MG TAB PO SCH (09:22)
[2021-09-04] MEDS: GABAPENTIN 400 MG CAP PO SCH ×3 (09:22→21:25)
[2021-09-04] MEDS: PREGABALIN 75 MG CAP PO SCH ×2 (09:26→21:25)
[2021-09-04] MEDS: POLYETHYLENE (MIRALAX) 17 GM PACK PO PRN (09:26)
[2021-09-04] MEDS: POTASSIUM CHLORIDE 10 MEQ TABCR PO SCH (09:26)
[2021-09-04] MEDS: oxyCODONE HCL IR 5 MG TAB (IMMEDIATE RELEASE) PO PRN (14:55)
--- NOTE | 2021-09-04 16:29 | Hospitalist Progress Note ---
Date of Service September 04, 2021 Assessment & Plan (1) Fall: (2) Closed fracture of left hip: Plan: Patient is a 71 yr male with H/O cirrhosis of liver with ascites in setting of hepatocellular carcinoma diagnosed in January 2021, peripheral neuropathy, thrombocytopenia and other medical problems listed below who presents after fall at work earlier today and was found to have . Acute left femoral neck fracture Secondary to fall Acute blood loss anemia-Post Operative S/P PRBC --Femur XR showed acute fracture of the left femoral neck --CXR with no acute cardiac process Underwent cardiac eval last week as potential liver transplant candidate with normal dobutamine stress test Supratherapeutic INR in setting of liver disease 2.2 S/P Left Bipolar Hemiarthroplasty by Dr.James Meza on 09/01/21 Pain control Continue wound Care Continue PT/OT Needs follow-up with orthopedic surgery in 2 to 3 weeks upon discharge Monitor CBC Transfuse PRBCs as needed Hb 9.3 today Plan to DC to Rehab as able Acute pulmonary edema Acute respiratory failure with hypoxia, hypercapnia developed post operatively CXR:Interval development of interstitial thickening suggestive of pulmonary edema. Right suprahilar density could reflect a dilated azygos vein. Suspected small bilateral pleural effusions with bibasilar opacities which could reflect atelectasis or consolidation. Low lung volumes. Likely secondary to transfusions in setting of cirrhosis history Received 1 dose of IV Lasix 60 mg Monitor volume status Currently on 1 liter supplemental oxygen Home diuretics held today secondary to MARK Resume diuretics as able Wean off of supplemental oxygen as able (3) Supratherapeutic INR: Plan: INR 2.2 in setting of cirrhosis Prior hospitalist discussed with Dr. Newman S/P IV Vitamin K, Plasma Acute kidney injury Cr:1.8 Hold diuretics Avoid nephrotoxic agents as able Monitor renal function (4) Cirrhosis of liver with ascites: (5) Hepatocellular carcinoma: Plan: HCC diagnosed in January 2021, following with [facility] [place]. Tbili 9.5, AST 57, ALT 33, Alk phos 173, plt 86 Patient is a liver transplant candidate who was scheduled for IR procedure for directed chemotherapy Continue lasix, spironolactone. Low sodium diet Hyperbilirubinemia Appreciate GI input --MRCP:Cirrhosis with manifestations of portal hypertension including ascites, splenomegaly and varices formation. No biliary ductal dilatation. No common bile duct calculi identified. Cholelithiasis. Multiple cystic pancreas lesions. 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 --Endoscopic US:- There was no sign of significant pathology in the ampulla. There was no sign of significant pathology in the common bile duct. Multiple stones and a copious amount of sludge was visualized endosonographically in the gallbladder. There was abnormal echogenicity in the visualized portion of the liver. This was heterogenous. There was no sign of significant pathology in the entire pancreas. Ascites was found on endosonographic examination of the p eritoneal cavity. No specimens collected. --Elevated bilirubin likely related to recent surgical intervention on his hip and with resorption of blood as per GI --Monitor LFTs --Avoid NSAIDs Compression deformity T12, L2: -Lumbar CT:There is a minimal and age indeterminant superior endplate compression deformity of L2. No additional findings are concerning for acute fracture involving the lumbar spine. There is a mild and age indeterminant inferior endplate compression deformity of T12. This was not seen on the 07/09/2020 lateral chest x-ray. Correlate for point tenderness. -Pain control Orthopedics consulted (6) Thrombocytopenia: Plan: Platelets of 86>76>65>62 k Monitor (7) Peripheral neuropathy: Plan: Continue gabapentin, lyrica DVT Px: SCDs Re: Surgery, Thrombocytopenia, Anemia, Increased INR Code status: FULL CODE Disposition Rehab as able Admission and Anticipated Discharge Date Admission Date: August 31, 2021 Subjective Patient is seen and examined at bedside States having back pain Hip pain at surgical site is controlled Updated patient's family at bedside Denies any nausea, vomiting, abdominal pain, chest pain, shortness of breath +Flatus, No BM today Review of Systems Review of Systems: All systems reviewed & are unremarkable except as noted in Subjective Physical Exam Physical Exam: Physical Exam: Vitals signs as noted above General Appearance:Moderately built and nourished, no apparent distress Head: normocephalic, Atraumatic Eyes: normal inspection, EOMI, +Icteric Neck: supple, Trachea midline Respiratory/Chest: Normal breath sounds, Scattered crackles Cardiovascular: S1, S2, No murmur Abdomen/GI:Soft, Non tender, Bowel sounds present Extremities/Musculoskeletal:normal inspection, B/L LE edema, Left hip surgical site in dressing Neurologic/Psych:AAOX3, grossly no focal neurological deficits Skin: normal color, warm Results & Data Results & Data ([facility]) Vital Signs (Past 12 Hours) Vital Signs Temp Pulse Pulse Resp BP Pulse Ox 09/04/21 08:40 77 09/04/21 08:09 36.8 C 82 18 106/69 97 Laboratory Results Short CBC 09/04/21 Range/Units 06:22 WBC 9.29 (4.8-10.8) K/uL Hgb 9.3 L (14.0-18.0) g/dL Hct 26.8 L (42-52) % Plt Count 62 L (130-400) K/uL BMP 09/03/21 09/04/21 22:29 06:22 Sodium 128 L 131 L Potassium 4.0 4.0 Chloride 92 L 93 L Carbon Dioxide 27 31 BUN 46 H 46 H Creatinine 1.92 H 1.84 H Glucose 242 H 178 H Calcium 8.3 L 8.7 Liver Function 09/04/21 Range/Units 06:22 Total Bilirubin 9.6 H (0.2-1.0) mg/dl Direct Bilirubin 2.9 H (0-0.2) mg/dl AST 51 H (13-39) U/L ALT 23 (7-52) U/L Alkaline Phosphatase 105 H (34-104) U/L Albumin 2.8 L (3.4-5.0) gm/dl (1) Fall Encounter type: initial encounter Qualified Code(s): W19.XXXA - Unspecified fall, initial encounter (2) Closed fracture of left hip Encounter type: initial encounter Qualified Code(s): S72.002A - Fracture of unspecified part of neck of left femur, initial encounter for closed fracture
[2021-09-04] MEDS: DOCUSATE SODIUM/SENNA 50/8.6MG TAB PO SCH (21:25)
[2021-09-05 06:53] LABS: Hematocrit (blood only) 27.9 % (42-52); Hemoglobin 9.6 g/dL (14.0-18.0); Mean Corpuscular Hemoglobin 36.6 pg (25-34); Mean Corpuscular Hgb Conc 34.4 g/dL (32-36); Mean Corpuscular Volume 106.5 fL (80-100); RDW Coefficient of Variation 18.9 % (11.5-14.5); RDW Standard Deviation 71.2 fL (36.4-46.3); Red Blood Count 2.62 M/uL (4.7-6.1); White Blood Count 8.32 K/uL (4.8-10.8)
[2021-09-05 06:54] LABS: Mean Platelet Volume 10.4 fL (7.4-10.4); Platelet Count 58 K/uL (130-400)
[2021-09-05 07:18] LABS: BUN Creatinine Ratio 31.6 (10-20); Calcium 8.7 mg/dl (8.5-10.1); Creatinine Clr Calc Pharmacy 54.8 ml/min; Est GFR (African American) 60.2 ml/min
[2021-09-05] MEDS: GABAPENTIN 400 MG CAP PO SCH ×3 (08:52→22:06)
[2021-09-05] MEDS: ESCITALOPRAM OXALATE 10 MG TAB PO SCH (08:52)
[2021-09-05] MEDS: POTASSIUM CHLORIDE 10 MEQ TABCR PO SCH (08:54)
[2021-09-05] MEDS: PREGABALIN 75 MG CAP PO SCH ×2 (08:55→22:05)
--- NOTE | 2021-09-05 09:09 | Consultation ---
Date of Consultation September 05, 2021 Assessment & Plan (1) Low back pain: I have reviewed recent lumbar CT from August 31 as well as clinical presentation. It is difficult to determine on his lumbar CT if the T12 and L2 compression fractures are acute. He also has severe degenerative changes with associated vacuum phenomenon at L4-5. There is possible stenosis at this level as well. I feel in order to obtain a better clinical picture as to what is going on with him and the source of his pain we need an MRI of his lumbar spine. I will move forward and order this. We'll make recommendations based upon MRI results. Treatment plan will be conservative in light of his current medical issues. I will review with Dr. Lewis tomorrow. History of Present Illness Reason for Consultation: Lower back pain since fall Attending Physician: Humphrey Kelly MD History of Present Illness Is a pleasant 71-year-old gentleman we are asked to see in consultation regarding acute lower back pain since a fall 5 days ago. The fall resulted in a little an acute left hip fracture. Dr. Meza took the patient to the OR on September 01, 2021 and performed a left cemented bipolar hemiarthroplasty. Patient reports very little ambulation since surgery. He is on hip precautions including a hip abduction pillow while in bed. He is weight- bear as tolerated . he denies bilateral lower extremity pain, paresthesia, numbness. He describes pain is along the midline lower lumbar spine. It is most severe when lying down which has been majority of his position since his surgery last week. Allergies Allergy/AdvReac Type Severity Reaction Status Date / Time Sulfa (Sulfonamide Allergy Mild Rash Verified 08/31/21 12:02 Antibiotics) morphine AdvReac Intermediate crazy Verified 08/31/21 12:02 Home Medications Medication Instructions Recorded Confirmed Type spironolactone 25 mg tablet 25 mg PO QAM 02/05/21 08/31/21 History trazodone 50 mg tablet 25 mg PO HS PRN 02/05/21 08/31/21 History escitalopram oxalate 5 mg tablet 5 mg PO QAM 08/31/21 08/31/21 History furosemide 40 mg tablet 40 mg PO BID 08/31/21 08/31/21 History gabapentin 400 mg capsule 400 mg PO TID 08/31/21 08/31/21 History oxycodone 5 mg tablet 5 mg PO Q4H PRN 08/31/21 08/31/21 History potassium chloride 10 mEq 10 meq PO QAM 08/31/21 08/31/21 History tablet,extended release(part/cryst) pregabalin 75 mg capsule (Lyrica) 75 mg PO BID 08/31/21 08/31/21 History Patient History Medical History Abnormal LFTs Adhesive capsulitis of left shoulder Anemia Cirrhosis of liver with ascites Edema, peripheral Fracture of proximal humerus Hepatocellular carcinoma Peripheral neuropathy Supratherapeutic INR Thrombocytopenia Surgical History History of hemiarthroplasty of hip Hx of appendectomy Family History Other Asthma Diabetes Social History Smoking Status: Never smoker Second Hand Exposure: No; Do You Dip or Chew Tobacco: No; Tobacco Cessation Education Requested by Patient: No Hx Alcohol Use: No Hx Substance Use: No Preferred Language: Belarusian Communication Ability: Effective Visual Impairment: Partially Limited Hearing Ability: Normal 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 Beliefs That Will Affect Care: Catholic Current Living Situation: Spouse Current Living Situation Comment: Feels Safe at Home: Yes Safety Concerns: Feels Safe At This Time Assistive Devices: Oxygen - Continuous and Walker Review of Systems Review of Systems: All systems reviewed & are unremarkable except as noted in HPI & below Physical Exam Physical Exam: He is lying in bed in a reclined position No acute distress Alert and oriented x3 Cooperative with exam Hip abduction pillow intact to therefore making some of his exam limited Calves are soft and nontender bilaterally 5/5 EHL, dorsiflexion, plantarflexion Unable to examine lumbar spine again due to hip precautions and abduction pillow Constitutional: + ill appearing Eyes: normal visual beckett by confrontation ENMT: external ear and nose normal, oropharynx normal Neck: normal visual inspection Respiratory: normal respiratory effort Cardiovascular: Extremities: normal capillary refill Musculoskeletal: Extremities: strength 5/5 throughout Skin: + jaundice Neurologic: normal touch/pain/proprioception and moves all extremities Psychiatric: A+Ox3, euthymic affect Results & Data ([place]) Vital Signs (Past 12 Hours) Vital Signs Temp Pulse Pulse Resp BP Pulse Ox 09/05/21 08:21 88 09/05/21 08:00 36.5 C 100 H 18 124/63 98 09/05/21 00:10 36.8 C 91 H 18 112/73 94 Diagnostic Findings [place], [place] [phone] CT Scan Report Patient:VIOLET RODRIGUEZ Admit Date:08/31/21 MR#:[id number] Address1:[address] [place] [address] Acct ID:[id number] Address2: Date:[address] [facility] Zip:[place] [address] Age:71 Location:ED Sex:M Room/Bed: Att Phy: Diagnosis:FALL, HIP PAIN Beverly Phy:Rosana Bhagat DO Service Date:08/31/21 Fam Phy: Interpreting Phy:Sal Bernal MDAdmit Phy: Ordering Phy:Juni Linares M.D. cc: ~ CT SCAN OF THE LUMBAR SPINE WITHOUT IV CONTRAST CLINICAL HISTORY: Fall. Low back pain. COMPARISON STUDY: Lateral chest x-ray dated 07/09/2020. TECHNIQUE: CT scan of the lumbar spine is performed from the lower thoracic spine to the sacrum. Images are reviewed in the axial, sagittal, and coronal planes. IV contrast was not administered for this examination. A dose lowering technique was utilized adhering to the principles of ALARA. CT DOSE: 656.49 mGycm FINDINGS: The skeletal structures are osteopenic. There is a minimal and age i ndeterminant superior endplate compression deformity of L2. Vertebral body height is otherwise maintained throughout the lumbar spine. Alignment is preserved. There is also a mild and age indeterminant inferior endplate compression deformity of T12. The transverse and spinous processes appear intact. There is no spondylolysis. No lytic or blastic lesion is seen. There is moderate disc space narrowing at L5-S1. Mild disc space narrowing is seen at L4- L5. The remaining disc spaces appear maintained. Small posterior disc osteophyte complexes are noted at L4-L5 and L5-S1. Facet arthropathy is seen in the lower lumbar region. The visualized sacrum and bony pelvis appear intact. Degenerative change is noted in the sacroiliac joints. The paraspinous soft tissues are normal as imaged. There is atherosclerotic calcification of the abdominal aorta. Calcified gallstones are partially visualized. There are bilateral nonobstructing renal calculi which measure up to 5 mm. Ascites is noted in the right upper quadrant. IMPRESSION: 1. There is a minimal and age indeterminant superior endplate compression deformity of L2. 2. No additional findings are concerning for acute fracture involving the lumbar spine. 3. There is a mild and age indeterminant inferior endplate compression deformity of T12. This was not seen on the 07/09/2020 lateral chest x-ray. Correlate for point tenderness. 4. Osteopenia and spondylotic change as above. 5. Perihepatic ascites is noted in the right upper quadrant. 6. Cholelithiasis and bilateral nephrolithiasis. ACT 112: Negative or not required by law. Electronically signed by: Sal Bernal M.D. 08/31/2021 11:32 AM Dictated:08/31/21 1121 Transcribed: 08/31/21 1121
--- NOTE | 2021-09-05 09:10 | Progress Notes ---
DATE OF SERVICE: 09/05/2021. SUBJECTIVE: A 71-year-old gentleman now postop day 4 from left cemented bipolar hip arthroplasty for fracture. He is doing a little bit better this morning. Not really much pain, just feeling a littl e bit better. No chest pain or shortness of breath. OBJECTIVE: VITAL SIGNS: Temperature 36.5. Vital signs are stable. PHYSICAL EXAMINATION: GENERAL: Shows a pleasant, elderly male. He is lying in bed, looks reasonably comfortable. EXTREMITIES: Examination of the left leg and hip reveals the leg length to be equal. His hip is loc ated. Dressing is clean, dry and intact. Diffuse edema, which is stable. He is neurologically inta ct. LABORATORY DATA: Hemoglobin 9.6. Hematocrit 27.9. Electrolytes are pretty stable. ASSESSMENT: A 71-year-old gentleman with multiple medical comorbidities with advanced liver disease, postoperative day 4 from left bipolar hip arthroplasty for fracture. Orthopedically, he is doing re asonably well. Hip is located. He is neurologically intact. Hemoglobin appears stable. PLAN: 1. DVT prophylaxis includes thigh-high TEDs, SCDs. Not a candidate for anticoagulation. 2. PT/OT. He can weight bear as tolerated. Needs to obey hip precautions. 3. Pain control, doing okay with current pain regimen. 4. Medical management as per the medicine service. 5. Disposition: He is orthopedically okay for discharge any time medically stable. Any orthopedic questions can be directed to me at [phone]. Job ID: [id number]
[2021-09-05] MEDS: oxyCODONE HCL IR 5 MG TAB (IMMEDIATE RELEASE) PO PRN (13:58)
[2021-09-05] MEDS: FUROSEMIDE 40 MG TAB PO SCH (16:28)
--- NOTE | 2021-09-05 16:58 | Hospitalist Progress Note ---
Date of Service September 05, 2021 Assessment & Plan (1) Fall: (2) Closed fracture of left hip: Plan: Patient is a 71 yr male with H/O cirrhosis of liver with ascites in setting of hepatocellular carcinoma diagnosed in January 2021, peripheral neuropathy, thrombocytopenia and other medical problems listed below who presents after fall at work earlier today and was found to have . Acute left femoral neck fracture Secondary to fall Acute blood loss anemia-Post Operative S/P PRBC --Femur XR showed acute fracture of the left femoral neck --CXR with no acute cardiac process Underwent cardiac eval last week as potential liver transplant candidate with normal dobutamine stress test Supratherapeutic INR in setting of liver disease 2.0 S/P Left Bipolar Hemiarthroplasty by Dr.James Meza on 09/01/21 Pain control Continue wound Care Continue PT/OT Needs follow-up with orthopedic surgery in 2 to 3 weeks upon discharge Monitor CBC Transfuse PRBCs as needed Hb 9.6 today Plan to DC to Rehab likely tomorrow Acute pulmonary edema Acute respiratory failure with hypoxia, hypercapnia developed post operatively CXR:Interval development of interstitial thickening suggestive of pulmonary edema. Right suprahilar density could reflect a dilated azygos vein. Suspected small bilateral pleural effusions with bibasilar opacities which could reflect atelectasis or consolidation. Low lung volumes. Likely secondary to transfusions in setting of cirrhosis history Received 1 dose of IV Lasix 60 mg Monitor volume status Currently on 1 liter supplemental oxygen Home diuretics held secondary to MARK Resume diuretics today Wean off of supplemental oxygen as able (3) Supratherapeutic INR: Plan: INR 2.2 in setting of cirrhosis Prior hospitalist discussed with Dr. Newman S/P IV Vitamin K, Plasma Acute kidney injury Cr:1.8>1.3 Avoid nephrotoxic agents as able Monitor renal function (4) Cirrhosis of liver with ascites: (5) Hepatocellular carcinoma: Plan: HCC diagnosed in January 2021, following with [facility] hepatology. Tbili 9.5, AST 57, ALT 33, Alk phos 173, plt 86 Patient is a liver transplant candidate who was scheduled for IR procedure for directed chemotherapy Continue lasix, spironolactone. Low sodium diet Hyperbilirubinemia Appreciate GI input --MRCP:Cirrhosis with manifestations of portal hypertension including ascites, splenomegaly and varices formation. No biliary ductal dilatation. No common bile duct calculi identified. Cholelithiasis. Multiple cystic pancreas lesions. 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 --Endoscopic US:- There was no sign of significant pathology in the ampulla. There was no sign of significant pathology in the common bile duct. Multiple stones and a copious amount of sludge was visualized endosonographically in the gallbladder. There was abnormal echogenicity in the visualized portion of the liver. This was heterogenous. There was no sign of significant pathology in the entire pancreas. Ascites was found on endosonographic examination of the peritoneal cavity. No specimens collected. --Elevated bilirubin likely related to recent surgical intervention on his hip and with resorption of blood as per GI --Monitor LFTs --Avoid NSAIDs Compression deformity T12, L2: -Lumbar CT:There is a minimal and age indeterminant superior endplate compression deformity of L2. No additional findings are concerning for acute fracture involving the lumbar spine. There is a mild and age indeterminant inferior endplate compression deformity of T12. This was not seen on the 07/09/2020 lateral chest x-ray. Correlate for point tenderness. -Pain control Orthopedics consulted (6) Thrombocytopenia: Plan: Platelets of 86>76>65>58 k Monitor (7) Peripheral neuropathy: Plan: Continue gabapentin, lyrica DVT Px: SCDs Re: Surgery, Thrombocytopenia, Anemia, Increased INR Code status: FULL CODE Disposition Rehab as able Admission and Anticipated Discharge Date Admission Date: August 31, 2021 Subjective Patient is seen and examined at bedside Still have significant back pain Denies any nausea, vomiting, abdominal pain, chest pain, shortness of breath Review of Systems Review of Systems: All systems reviewed & are unremarkable except as noted in Subjective Physical Exam Physical Exam: Physical Exam: Vitals signs as noted above General Appearance:Moderately built and nourished, no apparent distress Head: normocephalic, Atraumatic Eyes: normal inspection, EOMI, +Icteric Neck: supple, Trachea midline Respiratory/Chest: Normal breath sounds, Scattered crackles Cardiovascular: S1, S2, No murmur Abdomen/GI:Soft, Non tender, Bowel sounds present Extremities/Musculoskeletal:normal inspection, B/L LE edema, Left hip surgical site in dressing Neurologic/Psych:AAOX3, grossly no focal neurological deficits Skin: normal color, warm Results & Data Results & Data ([facility]) Vital Signs (Past 12 Hours) Vital Signs Temp Pulse Pulse Resp BP Pulse Ox 09/05/21 15:00 36.5 C 89 100 H 125/74 98 09/05/21 14:55 96 H 09/05/21 12:00 36.7 C 72 16 124/60 98 09/05/21 08:21 88 09/05/21 08:00 36.5 C 100 H 18 124/63 98 Laboratory Results Short CBC 09/05/21 Range/Units 06:14 WBC 8.32 (4.8-10.8) K/uL Hgb 9.6 L (14.0-18.0) g/dL Hct 27.9 L (42-52) % Plt Count 58 L (130-400) K/uL BMP 09/05/21 06:14 Sodium 131 L Potassium 4.0 Chloride 93 L Carbon Dioxide 32 BUN 43 H Creatinine 1.36 D Glucose 156 H Calcium 8.7 (1) Fall Encounter type: initial encounter Qualified Code(s): W19.XXXA - Unspecified fall, initial encounter (2) Closed fracture of left hip Encounter type: initial encounter Qualified Code(s): S72.002A - Fracture of unspecified part of neck of left femur, initial encounter for closed fracture
[2021-09-05] MEDS: DOCUSATE SODIUM/SENNA 50/8.6MG TAB PO SCH (22:05)
[2021-09-06 07:21] LABS: Hematocrit (blood only) 29.4 % (42-52); Mean Corpuscular Hemoglobin 36.9 pg (25-34); Mean Corpuscular Volume 108.5 fL (80-100); RDW Coefficient of Variation 18.8 % (11.5-14.5); RDW Standard Deviation 72.1 fL (36.4-46.3); Red Blood Count 2.71 M/uL (4.7-6.1); White Blood Count 8.25 K/uL (4.8-10.8)
[2021-09-06 07:25] LABS: Mean Platelet Volume 10.4 fL (7.4-10.4); Platelet Count 69 K/uL (130-400)
[2021-09-06 07:49] LABS: Potassium 4.2 mmol/L (3.5-5.1)
[2021-09-06 07:50] LABS: BUN Creatinine Ratio 28.8 (10-20); Calcium 8.8 mg/dl (8.5-10.1); Creatinine Clr Calc Pharmacy 60.2 ml/min; Est GFR (African American) 66.7 ml/min; Est GFR (Non-African American) 57.6 ml/min
[2021-09-06] MEDS: GABAPENTIN 400 MG CAP PO SCH (08:30)
[2021-09-06] MEDS: ESCITALOPRAM OXALATE 10 MG TAB PO SCH (08:31)
[2021-09-06] MEDS: FUROSEMIDE 40 MG TAB PO SCH (08:33)
[2021-09-06] MEDS: PREGABALIN 75 MG CAP PO SCH (08:37)
--- NOTE | 2021-09-06 10:10 | Orthopedic Progress Note ---
Date of Service September 06, 2021 Assessment & Plan (1) Low back pain: Plan: Case has been reviewed with Dr. Lewis. Unable to perform MRI lumbar spine due to marti in Left hip incision. Plan is to continue with pain control. WBAT from a spine standpoint. Will hold off on bracing due to pulmonary edema (acute). If back pain persists once hip marti have been d/c'd, we will re- evaluate in the office as an outpatient and pursue MRI if necessary. Thank you for this consult. We will sign off for now, But please contact us with any further concerns/questions. Admission and Anticipated Discharge Date Admission Date: August 31, 2021 Subjective Pt is unable to have MRI lumbar spine due to marti in Left hip incision. Review of Systems Review of Systems: All systems reviewed & are unremarkable except as noted in HPI & below Physical Exam Physical Exam: unchanged Results & Data ([facility]) Vital Signs (Past 12 Hours) Vital Signs Temp Pulse Resp BP Pulse Ox 09/06/21 07:16 36.5 C 85 19 109/71 97 09/06/21 03:14 36.7 C 86 18 104/66 91 09/05/21 23:10 36.7 C 86 18 104/65 92
[2021-09-06] MEDS: POTASSIUM CHLORIDE 10 MEQ TABCR PO SCH (10:36)
[2021-09-06] MEDS: SPIRONOLACTONE 25 MG TAB PO SCH (10:37)
[2021-09-06 11:40] VITALS: BP 157/86; TEMP 98.8; O2SAT 95
--- NOTE | 2021-09-06 12:27 | Hospitalist Progress Note ---
Date of Service September 06, 2021 Assessment & Plan (1) Fall: (2) Closed fracture of left hip: Plan: Patient is a 71 yr male with H/O cirrhosis of liver with ascites in setting of hepatocellular carcinoma diagnosed in January 2021, peripheral neuropathy, thrombocytopenia and other medical problems listed below who presents after fall at work earlier today and was found to have . Acute left femoral neck fracture Secondary to fall Acute blood loss anemia-Post Operative S/P PRBC --Femur XR showed acute fracture of the left femoral neck --CXR with no acute cardiac process Underwent cardiac eval last week as potential liver transplant candidate with normal dobutamine stress test Supratherapeutic INR in setting of liver disease 2.0 S/P Left Bipolar Hemiarthroplasty by Dr.James Meza on 09/01/21 Pain control Continue wound Care Continue PT/OT Monitor CBC Transfuse PRBCs as needed Hb 10.0 today Needs follow-up with orthopedic surgery in 2 to 3 weeks upon discharge Acute pulmonary edema Acute respiratory failure with hypoxia, hypercapnia developed post operatively CXR:Interval development of interstitial thickening suggestive of pulmonary edema. Right suprahilar density could reflect a dilated azygos vein. Suspected small bilateral pleural effusions with bibasilar opacities which could reflect atelectasis or consolidation. Low lung volumes. Likely secondary to transfusions in setting of cirrhosis history Received 1 dose of IV Lasix 60 mg Monitor volume status Currently on 1 liter supplemental oxygen Home diuretics held secondary to MARK initially Wean off of supplemental oxygen as able Continue home diuretics (3) Supratherapeutic INR: Plan: INR 2.2 in setting of cirrhosis Prior hospitalist discussed with Dr. Newman S/P IV Vitamin K, Plasma Acute kidney injury Cr:1.8>1.3>1.2 Avoid nephrotoxic agents as able Monitor renal function (4) Cirrhosis of liver with ascites: (5) Hepatocellular carcinoma: Plan: HCC diagnosed in January 2021, following with [facility] hepatology. Tbili 9.5, AST 57, ALT 33, Alk phos 173, plt 86 Patient is a liver transplant candidate who was scheduled for IR procedure for directed chemotherapy Continue lasix, spironolactone. Low sodium diet Hyperbilirubinemia Appreciate GI input --MRCP:Cirrhosis with manifestations of portal hypertension including ascites, splenomegaly and varices formation. No biliary ductal dilatation. No common bile duct calculi identified. Cholelithiasis. Multiple cystic pancreas lesions. 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 --Endoscopic US:- There was no sign of significant pathology in the ampulla. There was no sign of significant pathology in the common bile duct. Multiple stones and a copious amount of sludge was visualized endosonographically in the gallbladder. There was abnormal echogenicity in the visualized portion of the liver. This was heterogenous. There was no sign of significant pathology in the entire pancreas. Ascites was found on endosonographic examination of the peritoneal cavity. No specimens collected. --Elevated bilirubin likely related to recent surgical intervention on his hip and with resorption of blood as per GI --Monitor LFTs --Avoid NSAIDs Compression deformity T12, L2: -Lumbar CT:There is a minimal and age indeterminant superior endplate compression deformity of L2. No additional findings are concerning for acute fracture involving the lumbar spine. There is a mild and age indeterminant inferior endplate compression deformity of T12. This was not seen on the 07/09/2020 lateral chest x-ray. Correlate for point tenderness. -Pain control Appreciate Orthopedics Input Needs follow-up with Dr. Lewis upon discharge (6) Thrombocytopenia: Plan: Platelets of 86>76>65>58>69K Monitor (7) Peripheral neuropathy: Plan: Continue gabapentin, lyrica DVT Px: SCDs Re: Surgery, Thrombocytopenia, Anemia, Increased INR Code status: FULL CODE Disposition Rehab when arranged Admission and Anticipated Discharge Date Admission Date: August 31, 2021 Subjective Patient is seen and examined at bedside Back pain is better Left hip pain at surgical site is controlled Offers no other complaints Plan to be discharged to rehab facility today Denies any nausea, vomiting, abdominal pain, chest pain, shortness of breath Review of Systems Review of Systems: All systems reviewed & are unremarkable except as noted in Subjective Physical Exam Physical Exam: Physical Exam: Vitals signs as noted above General Appearance:Moderately built and nourished, no apparent distress Head: normocephalic, Atraumatic Eyes: normal inspection, EOMI, +Icteric Neck: supple, Trachea midline Respiratory/Chest: Normal breath sounds, basal crackles Cardiovascular: S1, S2, No murmur Abdomen/GI:Soft, Non tender, Bowel sounds present Extremities/Musculoskeletal:normal inspection, B/L LE edema, Left hip surgical site in dressing Neurologic/Psych:AAOX3, grossly no focal neurological deficits Skin: normal color, warm Results & Data Results & Data ([facility]) Vital Signs (Past 12 Hours) Vital Signs Temp Pulse Resp BP Pulse Ox 09/06/21 11:38 37.1 C 94 H 19 157/86 H 95 09/06/21 07:16 36.5 C 85 19 109/71 97 09/06/21 03:14 36.7 C 86 18 104/66 91 Laboratory Results Short CBC 09/06/21 Range/Units 06:19 WBC 8.25 (4.8-10.8) K/uL Hgb 10.0 L (14.0-18.0) g/dL Hct 29.4 L (42-52) % Plt Count 69 L (130-400) K/uL BMP 09/06/21 06:19 Sodium 133 L Potassium 4.2 Chloride 95 L Carbon Dioxide 34 H BUN 36 H Creatinine 1.25 Glucose 199 H Calcium 8.8 (1) Fall Encounter type: initial encounter Qualified Code(s): W19.XXXA - Unspecified fall, initial encounter (2) Closed fracture of left hip Encounter type: initial encounter Qualified Code(s): S72.002A - Fracture of unspecified part of neck of left femur, initial encounter for closed fracture
--- NOTE | 2021-09-06 12:43 | Discharge Summary ---
Date of Service September 06, 2021 Admission HPI Per Admitting Provider This is a 71yo M with a PMH of cirrhosis of liver with ascites in setting of hepatocellular carcinoma diagnosed in January 2021, peripheral neuropathy, thrombocytopenia and other medical problems listed below who presents after fall at work earlier today. Patient was walking into work and was in the process of walking up a step when he fell onto left side. Has peripheral neuropathy at baseline which results in some ambulatory dysfunction, per patient. Denies any head trauma or loss of consciousness. Pain better controlled in ED on fentanyl. Denies any worsening paresthesias or pain in lower extremities. Patient is a liver transplant candidate who was scheduled for IR procedure this coming Monday for directed chemotherapy. Underwent pre-op cardiology evaluation last week with stress echo negative for inducible ischemia. Lasix dose increased to 40mg BID due to uncontrolled edema with continuation of spironolactone. Following with hepatology in [place]. No fever, chills, lightheadedness, headache, CP, SOB, nausea, vomiting, abdominal pain, dysuria, diarrhea or constipation. Does say abdomen is more distended than previously but has never undergone paracentesis. Admission Exam Per Admitting Provider Physical Exam Physical Exam: General Appearance:WD/WN, vitals as above, NAD, sitting up in bed, pleasant, +jaundice Head: normocephalic, atraumatic Eyes:normal inspection, PERRL, conjunctivae normal, anicteric sclerae ENT: external ear and nose normal, oropharynx normal Neck: normal visual inspection, trachea midline, no thyromegaly Respiratory:normal respiratory effort, lungs clear to auscultation, no wheeze, rales, rhonchi. No accessory muscle use Cardiovascular: regular rate, rhythm, no murmur, normal peripheral pulses, no BLE edema. Vessels: no JVD Chest: normal inspection of chest Abdomen/GI: normal bowel sounds, distended but soft, nontender, no hepatosplenomegaly Extremities/Musculoskeletal:+L hip TTP, no lesions or deformities noted. No cyanosis or clubbing, extremities motor strength 5/5 Neurologic: PERRL, EOMI, accommodation nl, no face palsy, no dysarthria, CN's II-XI intact bilaterally and moves all extremities Psychiatric:A+Ox3, euthymic affect Skin: no rashes, + jaundice, warm/dry Principal Diagnosis Left Hip Replacement for Fracture Acute pulmonary edema Acute kidney injury Coagulopathy Hepatocellular carcinoma Compression deformity T12, L2 Thrombocytopenia Discharge Data Allergies Allergy/AdvReac Type Severity Reaction Status Date / Time Sulfa (Sulfonamide Allergy Mild Rash Verified 08/31/21 12:02 Antibiotics) morphine AdvReac Intermediate crazy Verified 08/31/21 12:02 Consultations 08/31/21 11:56 ED Decision to Admit Stat 08/31/21 13:49 Consult Orthopedic Surgery Routine 08/31/21 16:34 Consult Anesthesiology Routine 09/02/21 09:39 Consult Gastroenterology Routine 09/04/21 11:00 Consult Orthopedic Surgery Routine Procedures Performed Operation Date: 09/01/21 12:30 Actual Procedures p Left Bipolar Hemiarthroplasty Cemented(Left) - Mervin Meza MD Operation Date: 09/03/21 08:35 Actual Procedures p Endoscopic Retrograde Cholangiopancreatogram(Not Applicable) - DO ace Johnson Endoscopic Ultrasonography Upper - DO ace Johnson Esophagogastroduodenoscopy - Tyree Castellanos DO Ordered Studies 08/31/21 10:27 CT head/brain wo con Stat CT lumbar spine wo con Stat 09/02/21 10:30 US liver Routine 09/03/21 03:04 MR abdomen wo/w con Routine 09/03/21 11:08 US upper EUS PACS images Routine Hospital Course (1) Fall: (2) Closed fracture of left hip: Patient is a 71 yr male with H/O cirrhosis of liver with ascites in setting of hepatocellular carcinoma diagnosed in January 2021, peripheral neuropathy, thrombocytopenia and other medical problems listed below who presents after fall at work earlier today and was found to have . Acute left femoral neck fracture Secondary to fall Acute blood loss anemia-Post Operative S/P PRBC --Femur XR showed acute fracture of the left femoral neck --CXR with no acute cardiac process Underwent cardiac eval last week as potential liver transplant candidate with normal dobutamine stress test Supratherapeutic INR in setting of liver disease 2.0 S/P Left Bipolar Hemiarthroplasty by Dr.James Meza on 09/01/21 Pain control Continue wound Care Continue PT/OT Monitor CBC Transfuse PRBCs as needed Hb 10.0 today Needs follow-up with orthopedic surgery in 2 to 3 weeks upon discharge Acute pulmonary edema Acute respiratory failure with hypoxia, hypercapnia developed post operatively CXR:Interval development of interstitial thickening suggestive of pulmonary edema. Right suprahilar density could reflect a dilated azygos vein. Suspected small bilateral pleural effusions with bibasilar opacities which could reflect atelectasis or consolidation. Low lung volumes. Likely secondary to transfusions in setting of cirrhosis history Received 1 dose of IV Lasix 60 mg Monitor volume status Currently on 1 liter supplemental oxygen Home diuretics held secondary to MARK initially Wean off of supplemental oxygen as able Continue home diuretics (3) Supratherapeutic INR: INR 2.2 in setting of cirrhosis Prior hospitalist discussed with Dr. Newman S/P IV Vitamin K, Plasma Acute kidney injury Cr:1.8>1.3>1.2 Avoid nephrotoxic agents as able Monitor renal function (4) Cirrhosis of liver with ascites: (5) Hepatocellular carcinoma: HCC diagnosed in January 2021, following with [facility] hepatology. Tbili 9.5, AST 57, ALT 33, Alk phos 173, plt 86 Patient is a liver transplant candidate who was scheduled for IR procedure for directed chemotherapy Continue lasix, spironolactone. Low sodium diet Hyperbilirubinemia Appreciate GI input --MRCP:Cirrhosis with manifestations of portal hypertension including ascites, splenomegaly and varices formation. No biliary ductal dilatation. No common bile duct calculi identified. Cholelithiasis. Multiple cystic pancreas lesions. 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 --Endoscopic US:- There was no sign of significant pathology in the ampulla. There was no sign of significant pathology in the common bile duct. Multiple stones and a copious amount of sludge was visualized endosonographically in the gallbladder. There was abnormal echogenicity in the visualized portion of the liver. This was heterogenous. There was no sign of significant pathology in the entire pancreas. Ascites was found on endosonographic examination of the peritoneal cavity. No specimens collected. --Elevated bilirubin likely related to recent surgical intervention on his hip and with resorption of blood as per GI --Monitor LFTs --Avoid NSAIDs Compression deformity T12, L2: -Lumbar CT:There is a minimal and age indeterminant superior endplate compression deformity of L2. No additional findings are concerning for acute fracture involving the lumbar spine. There is a mild and age indeterminant inferior endplate compression deformity of T12. This was not seen on the 07/09/2020 lateral chest x-ray. Correlate for point tenderness. -Pain control Appreciate Orthopedics Input Needs follow-up with Dr. Lewis upon discharge (6) Thrombocytopenia: Platelets of 86>76>65>58>69K Monitor (7) Peripheral neuropathy: Continue gabapentin, lyrica DVT Px: SCDs Re: Surgery, Thrombocytopenia, Anemia, Increased INR Code status: FULL CODE Disposition Rehab when arranged Total Time Total Time Spent Total Time Spent (In Minutes): 50 minutes Discharge Plan Discharge Items Patient Disposition: Transfer Inpatient Rehab Fac Reason For Visit: L HIP FRACTURE Discharge Diagnosis: Left Hip Replacement for Fracture Acute pulmonary edema Acute kidney injury Coagulopathy Hepatocellular carcinoma Compression deformity T12, L2 Thrombocytopenia Activity: Per Instructions section Activity Comment: Weightbear as tolerated obeying hip precautions at all times. Weightbearing: Full weightbearing Weightbearing Comment: May fully WB as tolerated obeying hip precautions Non-emergency contact: Primary Care Provider, Surgeon and Top Lift Trimmer Call non-emergency contact if: you have any medication questions, your symptoms worsen, your pain is concerning for you and you have a fever Follow-up/Referrals: Rosana Bhagat DO [Primary Care Provider] - Mervin Meza MD [Physician] - (Orthopedic follow-up 2-3 weeks from surgery date.) Diet: Heart Healthy and Low Sodium (2gm) Addtl Attending Provider Instructions: ACTIVITY RECOMMENDATIONS: Physical Therapy: * Aggressive physical therapy is not usually needed. You will learn to take care of yourself safely and walk. * Follow the "Hip Precautions Instructions." * In some cases, the social science research assistant at the hospital will arrange to have a therapist come to your house for the first couple of weeks to help you learn these skills. * You need to practice on your own or with the help of a family member as needed. * When you learn these skills, most of the therapy can be done on your own. Home Exercise: * You were shown a series of exercises in the hospital. Do these exercises three to four times each day including the exercises you were shown in physical therapy. Walking: * Get up and walk several times each day. For the first four weeks, try not to stand or walk for more than one hour at a time. If you do stand or walk for more than one hour, you will not hurt anything, but your leg will likely swell. * As you feel comfortable, you may change from the walker or crutches to a cane and then to independent walking. MEDICATIONS: "VERY IMPORTANT TO READ AND REVIEW" Pain: * The immediate post-operative period after hip replacement surgery is often quite painful. * You are given a prescription for pain medicine. You should take it, as directed, when you need it, especially before physical therapy and before going to bed. Pain that interferes with sleep is very common and can last several months. * You will likely need pain medicine for the first two to four weeks. It will not stop all of the pain. The pain will lessen and as you feel better, you may change to milder pain medicine such as Tylenol. * The most common side effects of pain medicine are nausea and constipation, so don't take more than you need. SPECIAL CARE INSTRUCTIONS: TEDs/Elastic Stockings: * The white elastic stockings help limit swelling and prevent blood clots from forming in your legs. The more you wear them, the more they work. * Wear them for six weeks. Prevention of Infection: * Take antibiotics one hour before any dental cleaning, dental work, urological procedure, gastrointestinal procedure or any invasive surgery in order to prevent your new joint from getting infected. * You may get the antibiotics from the doctor performing the procedure or you may call our office at before and we will call in a prescription to the pharmacy of your choice. Things to Watch For: * Drainage from the incision site that occurs more than one week after your surgery. * Severely increased leg pain or swelling. * Increased redness at the incision site. * Fever above 102 degrees Fahrenheit. * Unusual chest pain or shortness of breath. * Unusual pain or burning with urination. Call [facility] at with any of the above problems or if you have any questions about your medicines or recovery. FOLLOW UP VISIT: Make an appointment to see your doctor for approximately two weeks after surgery for a progress check and staple removal by calling the office at . Addtl Judicial Assistant Provider Instructions: Follow-up with your primary care physician in 1 week upon discharge from rehab facility Follow-up with your orthopedic surgeon Dr.James Meza as advised Follow-up with your orthopedic spine surgeon Dr. Lewis for further evaluation of your back pain if needed Follow-up with your slotter operator helper at [facility] upon discharge from rehab facility --Avoid NSAIDs as recommended by your globe changer. Seek immediate medical attention if your symptoms reoccur or worsen Please take all medications as instructed on discharge list below. Please call if you have any questions or problems. You can reach a [facility] hospitalist on duty at [facility] 24 hours a day by calling [phone] Pending Studies at Discharge: No Stand-Alone Forms: My [facility] Skilled Items Patient informed of condition?: Yes DNR: No Discharge Level of Care: Acute rehab Communicable Disease: No Discharge Prognosis: Stable Lines: None Urinary Catheter: Yes Medications and DC Order Prescriptions: New polyethylene glycol 3350 [Miralax] 17 gram Powder In Packet 17 g PO DAILY PRNQty: 0 RF: 0 sennosides-docusate sodium [Senokot-S] 8.6-50 mg Tablet 2 tab PO HS PRN (Reason: constipation) Qty: 0 RF: 0 Continued trazodone 50 mg Tablet 25 mg PO HS PRN (Reason: Sleep) RF: 0 spironolactone 25 mg tablet 25 mg PO QAM RF: 0 furosemide 40 mg tablet 40 mg PO BID RF: 0 gabapentin 400 mg capsule 400 mg PO TID RF: 0 potassium chloride 10 mEq tablet,ER particles/crystals 10 meq PO QAM RF: 0 escitalopram oxalate 5 mg tablet 5 mg PO QAM RF: 0 oxycodone 5 mg tablet 5 mg PO Q4H PRN (Reason: Pain) RF: 0 pregabalin [Lyrica] 75 mg Capsule 75 mg PO BID RF: 0 Discharge Orders: Discharge Order (Routine); Ordered 09/06/21 Ordered By: Humphrey Kelly Admission Data Admit Date/Time: 08/31/21 13:49 Attending Provider: Humphrey Kelly Admit Provider: Rosey Jurado Primary Care Provider: Rosana Bhagat Other Providers: [facility] ; Rosey Jurado ; Mervin Meza ; Mark Troy ; Ozzy Gracia ; Hayley Mills ; Antonella Arechiga ; Kasey Richard ; Warren Garcia ; Tyree Castellanos ; Anita Roy ; Jose Reyes ; Carolann Deleon ; Sadia Howell ; Anita Kumar ; Solange Gill ; Tony Sanderson ; Semaj Lewis
[2021-09-06 13:23] VITALS: PULSE 79
[2021-09-06] MEDS: oxyCODONE HCL IR 5 MG TAB (IMMEDIATE RELEASE) PO PRN (13:31)
== END 2021-09-06 14:32 | DRG 521 ==
LOC: ED 08:50 → 3N 13:49 → SUATTDRO 13:49 → 3N 17:12 → 2S 09-01 21:25